=== PATIENT | female | born 1950 | race Caucasian/White ===

== ENCOUNTER 2018-07-23 16:54 | Emergency (ER) | payer OTHER ==
--- OUTSIDE RECORDS SUMMARY | 2018-07-23 16:56 | XMS REPORT | Clinical Summary ---
:1950 Author Organization [facility] Address [address] [place] [address] Care Team Providers Name Role Phone Olga Baker ZOYA Primary Care Provider Allergies Active Allergy Reactions Severity Noted Date Comments Codeine GI Intolerance High 02/13/2016 Penicillins GI Intolerance High 02/13/2016 Medications Medication Sig Dispensed Refills Start Date End Date Status FLUoxetine (PROzac) Take 20 mg by 0 Active 20 MG capsule mouth daily. atorvastatin Take 20 mg by 0 Active (LIPITOR) 20 MG mouth daily. tablet albuterol (VENTOLIN Inhale 2 18 g 3 03/17/2018 03/17/2019 Active HFA) 90 puffs every 6 mcg/actuation (six) hours inhaler as needed for wheezing. meloxicam (MOBIC) Take 1 tablet 30 tablet 4 10/01/2016 09/29/2017 Discontinued 7.5 mg (7.5 mg tabletIndications: total) by Neck pain, mouth daily. Spondylosis of cervical region without myelopathy or radiculopathy Active Problems Problem Noted Date Seasonal allergic rhinitis due to pollen 03/14/2016 Lung nodule < 6cm on CT 02/13/2016 Endobronchial mass 02/13/2016 Chronic obstructive pulmonary disease 02/13/2016 Tobacco abuse 02/13/2016 RODRIGUES (dyspnea on exertion) Encounters Date Type Specialty Care Team Description 07/05/2018 Telephone Pulmonology Syed Magdaleno MD 03/17/2018 Clinical Support Pulmonology Rochelle Martinez Chronic obstructive pulmonary disease, unspecified COPD type (HCC) 03/17/2018 Office Visit Pulmonology Syed Magdaleno Chronic obstructive pulmonary disease, unspecified COPD type (HCC) (Primary Dx); MD Anatoly Tobacco abuse; Lung nodule < 6cm on CT; Seasonal allergic rhinitis due to pollen 03/17/2018 Clinical Support Pulmonology Syed Magdaleno Chronic obstructive MD Anatoly pulmonary disease, JuanRochelle unspecified COPD type (HCC) 10/01/2017 Anesthesia Event Gastroenterology Linda Phillips FNP 10/01/2017 Surgery Gastroenterology Syed Magdaleno BRONCHOSCOPY MD Anatoly 10/01/2017 Hospital Encounter Gastroenterology Syed Magdaleno Lung nodule < 6cm on CT (Primary Dx); MD Anatoly Endobronchial mass 09/30/2017 Orders Only Pulmonology Mabel Gamboa, Chronic obstructive pulmonary disease, unspecified COPD type; MA Endobronchial mass; Tobacco abuse 09/29/2017 Office Visit Pulmonology Syed Magdaleno Chronic obstructive pulmonary disease, unspecified COPD type (Primary Dx); MD Anatoly Endobronchial mass; Tobacco abuse; Chronic seasonal allergic rhinitis due to pollen 09/24/2017 Documentation Pulmonology Syed Magdaleno MD 08/27/2017 Orders Only Pulmonology Olga Baker FNP after 07/22/2017 Immunizations Name Dates Previously Given Next Due FLUZONE HIGH-DOSE PF 03/17/2018 INFLUENZA QUAD PF 03/17/2016 Pneumococcal Conjugate 13-Valent 03/17/2016 Pneumococcal Polysaccharide 03/17/2018 Family History Medical History Relation Name Comments Cancer Brother Throat cancer Brother Heart failure Father Heart failure Mother Relation Name Status Comments Brother Father Mother Social History Tobacco Use Types Packs/Day Years Used Date Current Every Day Smoker Cigarettes 0.5 25 Smokeless Tobacco: Never Used Tobacco Cessation: Ready to Quit: Yes Alcohol Use Drinks/Week oz/Week Comments No Sex Assigned at Date Recorded Not on file Job Start Date Occupation Industry Not on file Not on file Not on file Travel History Travel Start Travel End No recent travel history available. Last Filed Vital Signs Vital Sign Reading Time Taken Blood Pressure 132/83 03/17/2018 10:01 AM CDT Pulse 71 03/17/2018 10:01 AM CDT Temperature 36.3 C (97.3 F) 03/17/2018 10:01 AM CDT Respiratory Rate 18 03/17/2018 9:35 AM CDT Oxygen Saturation 99% 03/17/2018 10:01 AM CDT Inhaled Oxygen Concentration - - Weight 61.7 kg (136 lb) 03/17/2018 10:01 AM CDT Height 158.8 cm (5' 2.5") 03/17/2018 10:01 AM CDT Body Mass Index 24.48 03/17/2018 10:01 AM CDT Plan of Treatment Health Maintenance Due Date Last Done Comments BREAST CANCER SCREENING 2000 COLON CANCER SCREENING 2000 SHINGLES VACCINES (#1) 2000 65+ PNEUMOCOCCAL VACCINE Completed 03/17/2018, 03/17/2016 INFLUENZA VACCINE Completed 03/17/2018, 03/17/2016 PNEUMOCOCCAL POLYSACCHARIDE VACCINE AGE 65 Completed 03/17/2018 AND OVER Procedures Procedure Name Priority Date/Time Associated Diagnosis Comments XR CHEST 1 VW STAT 10/01/2017 9:19 Results for this PORTABLE AM CDT procedure are in the results section. BRONCHOSCOPY 10/01/2017 8:00 Endobronchial mass AM CDT ECG 12-LEAD STAT 10/01/2017 6:52 Results for this AM CDT procedure are in the results section. CT CHEST W CONTRAST Routine 08/21/2017 after 07/22/2017 Results XR Chest 1 Vw Portable (10/01/2017 9:19 AM CDT) Narrative Performed At EXAMINATION:XR CHEST 1 VW PORTABLE [facility] CLINICAL HISTORY:SHORTNESS OF BREATH COMPARISON:February 21, 2016 IMPRESSION: No consolidation or pleural effusion. Mild cardiomegaly. No definite pulmonary edema. Bones are intact. [id number] Procedure Note Hm Interface, Radiology Results Incoming - 10/01/2017 9:24 AM CDT EXAMINATION: XR CHEST 1 VW PORTABLE CLINICAL HISTORY: SHORTNESS OF BREATH COMPARISON: February 21, 2016 IMPRESSION: No consolidation or pleural effusion. Mild cardiomegaly. No definite pulmonary edema. Bones are intact. [id number] Performing Organization Address City/State/Zipcode Phone Number [facility] [address] [place] [address] ECG 12 lead (10/01/2017 6:52 AM CDT) Ventricular rate 56 [facility] Atrial rate 56 [facility] NE interval 130 [facility] QRSD interval 78 [facility] QT interval 450 [facility] QTC interval 434 [facility] P axis 1 63 [facility] QRS axis 1 41 [facility] T wave axis -15 [facility] EKG impression Sinus bradycardia-T wave abnormality, consider inferior ischemia-Abnormal ECG-In automated comparison with ECG of 21-FEB-2016 06:31,- Nonspecific T wave abnormality now evident in Anterolateral leads-Charmaine [facility] ctronically Signed By Leeann Nobles ([id number]) on 10/01/2017 12:56:51 PM Performing Organization Address City/State/Zipcode Phone Number [facility] [address] [place] [address] CT Chest W Contrast (08/21/2017) Narrative Performed At after 07/22/2017 Insurance Payer Benefit Plan / Group Subscriber ID Type Phone Address MEDICARE MEDICARE PART A AND B xxxxxxxxxxx Medicare [place], [place] COMMERCIAL MISC MISC COMMERCIAL xxxxxxxxxx Commercial Advance Directives Patient has advance care planning documents on file. For more information, please contact:Albert Carnes[address] [place] [address]
[2018-07-23] MEDS ORDERED: ONDANSETRON 4 MG/2 ML VIAL ONE (18:44)
[2018-07-23 18:57] LABS: Absolute Lymphocytes (CBC) 2.8 K/uL (0.7-4.9); Absolute Monocytes 0.6 K/uL (0.1-1.3); Eosinophils % 3.8 % (0-4.4); Hematocrit 39.2 % (36.0-45.0); Lymphocytes % 36.3 % (15.3-44.8); MPV 9.2 fL (7.6-11.3); Monocytes % 7.6 % (3.3-12.3)
[2018-07-23 19:01] LABS: Protime INR 1.09
--- NOTE | 2018-07-23 19:22 | RAD REPORT ---
EXAM DESCRIPTION: RAD - Chest Single View - 07/23/2018 6:59 pm CLINICAL HISTORY: Shortness of breath, abdominal pain COMPARISON: January 2017 TECHNIQUE: AP portable chest image was obtained 2052 . FINDINGS: No focal lung parenchymal process seen. No failure or volume overload. Interstitial markin gs are prominent but not clearly different from comparison. Heart and vasculature are normal. No re urable pleural effusion and no pneumothorax. No acute bony abnormality seen. No acute aortic findings suspected. IMPRESSION: No acute cardiopulmonary process. Chest findings are not substantially different from comparison.
[2018-07-23 19:25] LABS: ALT/SGPT 17 U/L (12-78); AST/SGOT 11 U/L (15-37); Albumin 3.6 g/dL (3.4-5.0); Alkaline Phosphatase 85 U/L (45-117); BUN Blood Urea Nitrogen 14 mg/dL (7-18); Bicarbonate 29 mmol/L (21-32); Bilirubin Direct < 0.1 mg/dL (0-0.2); Bilirubin Total 0.2 mg/dL (0.2-1.0); Glucose Level 82 mg/dL (74-106); Magnesium 2.1 mg/dL (1.8-2.4); NT PRO-BNP 111 pg/mL (<125); Potassium 4.1 mmol/L (3.5-5.1); Sodium Level 144 mmol/L (136-145); Troponin (Emerg Dept Use Only) < 0.02 ng/mL (0.0-0.045)
--- NOTE | 2018-07-23 20:07 | ER ---
Nurse's Notes [facility] Name: Anamika Diaz Age: 67 yrs Sex: Female : 1950 Arrival Date: 07/23/2018 Time: 16:54 Bed 24 Private MD: out of town, doctor Diagnosis: Nausea;Hyperventilation Presentation: 07/23 16:57 Presenting complaint: Patient states: nausea x 3 days, SOB x 1 day, HTN for about a sv week. Transition of care: patient was not received from another setting of care. Onset of symptoms is unknown. Care prior to arrival: None. 16:57 Method Of Arrival: Ambulatory sv 16:57 Acuity: CARMEN 3 sv 17:33 Risk Assessment: Do you want to hurt yourself or someone else? Patient reports no tw2 desire to harm self or others. Initial Sepsis Screen: Does the patient meet any 2 criteria? No. Patient's initial sepsis screen is negative. Does the patient have a suspected source of infection? No. Patient's initial sepsis screen is negative. Triage Assessment: 17:32 General: Appears in no apparent distress. Behavior is calm, cooperative, appropriate tw2 for age. Pain: Denies pain. Respiratory: Reports shortness of breath Onset: The symptoms/episode began/occurred the patient has mild shortness of breath. Historical: - Allergies: 16:58 Codeine; sv 16:58 CYCLOBENZAPRINE (Vomiting); sv 16:58 Levaquin; sv 16:58 PENICILLINS (Hives); sv 17:33 Levofloxacin (Vomiting); tw2 - Home Meds: 17:33 fluoxetine 10 mg Oral cap once daily [Active]; tw2 17:41 lisinopril 10 mg Oral tab 1 tab once daily [Active]; tw2 - PMHx: 16:58 Vertigo; Hypertension; sv - PSHx: 16:58 hemmorrhoidectomy; sv - Immunization history:: Adult Immunizations. - Social history:: Smoking status: . - Ebola Screening: : Patient denies travel to an Ebola-affected area in the 21 days before illness onset. Screenin:32 Abuse screen: Denies threats or abuse. Nutritional screening: No deficits noted. tw2 Tuberculosis screening: No symptoms or risk factors identified. Fall Risk None identified. Assessment: 17:40 General: Appears in no apparent distress. slender, Behavior is calm, cooperative, tw2 appropriate for age. Pain: Denies pain. Neuro: Level of Consciousness is awake, alert, obeys commands, Oriented to person, place, situation. Cardiovascular: Heart tones S1 S2 Patient's skin is warm and dry. Rhythm is sinus rhythm. Respiratory: Airway is patent Respiratory effort is even, unlabored, Respiratory pattern is regular, symmetrical, Breath sounds are clear bilaterally. Respiratory: Reports shortness of breath at rest on exertion. GI: No signs and/or symptoms were reported involving the gastrointestinal system. : No signs and/or symptoms were reported regarding the genitourinary system. EENT: No signs and/or symptoms were reported regarding the EENT system. Derm: No signs and/or symptoms reported regarding the dermatologic system. Musculoskeletal: Range of motion: intact in all extremities. 18:45 Reassessment: Patient appears in no apparent distress at this time. No changes from tw2 previously documented assessment. Patient and/or family updated on plan of care and expected duration. Pain level reassessed. Patient is alert, oriented x 3, equal unlabored respirations, skin warm/dry/pink. 19:00 Reassessment: Patient appears in no apparent distress at this time. Patient and/or aa1 family updated on plan of care and expected duration. Pain level reassessed. Patient is alert, oriented x 3, equal unlabored respirations, skin warm/dry/pink. Pt awaiting lab results Patient denies pain at this time. 20:03 Reassessment: Patient appears in no apparent distress at this time. Patient and/or aa1 family updated on plan of care and expected duration. Pain level reassessed. Patient is alert, oriented x 3, equal unlabored respirations, skin warm/dry/pink. Awaiting provider reassessment. 20:15 Reassessment: Patient appears in no apparent distress at this time. Patient is alert, aa1 oriented x 3, equal unlabored respirations, skin warm/dry/pink. Discussed d/c \T\ f/u instructions with pt \T\ spouse; denies questions or concerns at this time. Amb to lobby with steady gait Patient denies pain at this time. Patient states feeling better. Vital Signs: 16:58 BP 136 / 84; Pulse 86; Resp 20; Temp 98; Pulse Ox 100% ; Weight 61.23 kg; Height 5 ft. sv 2 in. (157.48 cm); Pain 0/10; 17:39 BP 134 / 78; Pulse 74; Resp 17; Pulse Ox 100% on R/A; tw2 18:05 BP 121 / 81; Pulse 69; Resp 17; Pulse Ox 99% on R/A; tw2 19:00 BP 128 / 76; Pulse 63; Resp 16; Pulse Ox 96% on R/A; Pain 0/10; aa1 20:03 BP 125 / 79; Pulse 63; Resp 16; Pulse Ox 98% on R/A; Pain 0/10; aa1 16:58 Body Mass Index 24.69 (61.23 kg, 157.48 cm) sv ED Course: 16:54 Patient arrived in ED. dl4 16:54 out of town, doctor is Private Physician. dl4 16:57 Triage completed. sv 16:58 Arm band placed on. sv 17:31 Deepa Booker RN is Primary Nurse. tw2 17:32 Placed in gown. Bed in low position. Call light in reach. Adult w/ patient. Cardiac tw2 monitor on. Pulse ox on. NIBP on. 17:54 Lev Flower NP is PHCP. pm1 17:54 Satya Dumont MD is Attending Physician. pm1 18:35 Inserted saline lock: 22 gauge in right antecubital area, using aseptic technique. tw2 Blood collected. 18:59 XRAY Chest (1 view) In Process Unspecified. EDMS 19:02 Report given to SHERRI Schumacher. tw2 20:15 No provider procedures requiring assistance completed. IV discontinued, intact, aa1 bleeding controlled, No redness/swelling at site. Pressure dressing applied. Administered Medications: 18:37 Drug: Zofran 4 mg Route: IVP; Site: right antecubital; tw2 18:46 Follow up: Response: No adverse reaction tw2 20:14 Follow up: Response: Nausea is decreased aa1 Outcome: 20:06 Discharge ordered by . pm1 20:15 Discharged to home ambulatory, with significant other. aa1 20:15 Condition: good 20:15 Discharge instructions given to patient, significant other, Instructed on discharge instructions, follow up and referral plans. medication usage, Demonstrated understanding of instructions, follow-up care, medications, Prescriptions given X 1. 20:16 Patient left the ED. aa1 Signatures: Dispatcher [employer] Tracy Aponte RN RN sv Winsome Mendoza RN RN aa1 Lev Flower, SOLAR ENERGY ENGINEER SOLAR ENERGY ENGINEER pm1 Deepa Booker RN RN tw2 Ez Garcia dl4
--- NOTE | 2018-07-23 20:07 | EDPHYS ---
Physician Documentation [facility] Name: Anamika Diaz Age: 67 yrs Sex: Female : 1950 Arrival Date: 07/23/2018 Time: 16:54 Bed 24 Private MD: out of town, doctor ED Physician Satya Dumont HPI: 07/23 19:00 This 67 yrs old Female presents to ER via Ambulatory with complaints of pm1 Breathing Difficulty, High Blood Pressure. 19:00 Onset: The symptoms/episode began/occurred 3 day(s) ago. The patient's shortness of pm1 breath is aggravated by nothing, is alleviated by nothing. Associated signs and symptoms: Pertinent positives: nausea, Pertinent negatives: chest pain, diaphoresis, dizziness, fever, numbness in extremities, vomiting. Severity of symptoms: in the emergency department the symptoms are unchanged Pain is currently a 0 / 10. The patient has not experienced similar symptoms in the past. Patient with three days of episodes of nausea that would cause to start hyperventilating. Patient would feel short of breath when she hyperventilated. No vomiting, diarrhea or abdominal pain. No chest pain. no fever. No cough. Historical: - Allergies: 16:58 Codeine; sv 16:58 CYCLOBENZAPRINE (Vomiting); sv 16:58 Levaquin; sv 16:58 PENICILLINS (Hives); sv 17:33 Levofloxacin (Vomiting); tw2 - Home Meds: 17:33 fluoxetine 10 mg Oral cap once daily [Active]; tw2 17:41 lisinopril 10 mg Oral tab 1 tab once daily [Active]; tw2 - PMHx: 16:58 Vertigo; Hypertension; sv - PSHx: 16:58 hemmorrhoidectomy; sv - Immunization history:: Adult Immunizations. - Social history:: Smoking status: . - Ebola Screening: : Patient denies travel to an Ebola-affected area in the 21 days before illness onset. ROS: 19:00 Constitutional: Negative for fever, chills, and weight loss, Eyes: Negative for injury, pm1 pain, redness, and discharge, ENT: Negative for injury, pain, and discharge, Neck: Negative for injury, pain, and swelling, Cardiovascular: Negative for chest pain, palpitations, and edema, Respiratory: Negative for shortness of breath, cough, wheezing, and pleuritic chest pain. 19:00 Back: Negative for injury and pain, : Negative for injury, bleeding, discharge, and swelling, MS/Extremity: Negative for injury and deformity, Skin: Negative for injury, rash, and discoloration, Neuro: Negative for headache, weakness, numbness, tingling, and seizure. 19:00 Abdomen/GI: Positive for nausea, Negative for abdominal pain, vomiting, diarrhea, constipation. Exam: 19:00 Constitutional: This is a well developed, well nourished patient who is awake, alert, pm1 and in no acute distress. Head/Face: Normocephalic, atraumatic. Eyes: Pupils equal round and reactive to light, extra-ocular motions intact. Lids and lashes normal. Conjunctiva and sclera are non-icteric and not injected. Cornea within normal limits. Periorbital areas with no swelling, redness, or edema. ENT: Nares patent. No nasal discharge, no septal abnormalities noted. Tympanic membranes are normal and external auditory canals are clear. Oropharynx with no redness, swelling, or masses, exudates, or evidence of obstruction, uvula midline. Mucous membranes moist. Neck: Trachea midline, no thyromegaly or masses palpated, and no cervical lymphadenopathy. Supple, full range of motion without nuchal rigidity, or vertebral point tenderness. No Meningismus. Chest/axilla: Normal chest wall appearance and motion. Nontender with no deformity. No lesions are appreciated. Cardiovascular: Regular rate and rhythm with a normal S1 and S2. No gallops, murmurs, or rubs. Normal PMI, no JVD. No pulse deficits. Respiratory: Lungs have equal breath sounds bilaterally, clear to auscultation and percussion. No rales, rhonchi or wheezes noted. No increased work of breathing, no retractions or nasal flaring. Abdomen/GI: Soft, non-tender, with normal bowel sounds. No distension or tympany. No guarding or rebound. No evidence of tenderness throughout. Back: No spinal tenderness. No costovertebral tenderness. Full range of motion. Skin: Warm, dry with normal turgor. Normal color with no rashes, no lesions, and no evidence of cellulitis. MS/ Extremity: Pulses equal, no cyanosis. Neurovascular intact. Full, normal range of motion. 19:00 Neuro: Orientation: is normal, Motor: moves all fours. Vital Signs: 16:58 BP 136 / 84; Pulse 86; Resp 20; Temp 98; Pulse Ox 100% ; Weight 61.23 kg; Height 5 ft. sv 2 in. (157.48 cm); Pain 0/10; 17:39 BP 134 / 78; Pulse 74; Resp 17; Pulse Ox 100% on R/A; tw2 18:05 BP 121 / 81; Pulse 69; Resp 17; Pulse Ox 99% on R/A; tw2 19:00 BP 128 / 76; Pulse 63; Resp 16; Pulse Ox 96% on R/A; Pain 0/10; aa1 20:03 BP 125 / 79; Pulse 63; Resp 16; Pulse Ox 98% on R/A; Pain 0/10; aa1 16:58 Body Mass Index 24.69 (61.23 kg, 157.48 cm) sv MDM: 18:15 Patient medically screened. pm1 20:04 Data reviewed: vital signs. Data interpreted: Pulse oximetry: on room air is 99 %. pm1 Interpretation: normal. 20:05 Counseling: I had a detailed discussion with the patient and/or guardian regarding: the pm1 historical points, exam findings, and any diagnostic results supporting the discharge/admit diagnosis, lab results, radiology results, the need for outpatient follow up, to return to the emergency department if symptoms worsen or persist or if there are any questions or concerns that arise at home. 03 18:24 Order name: Basic Metabolic Panel; Complete Time: 20:05 pm1 07/23 18:24 Order name: CBC with Diff; Complete Time: 20:05 pm1 07/23 18:24 Order name: LFT's; Complete Time: 20:05 pm1 07/23 18:24 Order name: Magnesium; Complete Time: 20:05 pm1 07/23 18:24 Order name: NT PRO-BNP; Complete Time: 20:05 pm1 07/23 18:24 Order name: PT-INR; Complete Time: 20:05 pm1 07/23 18:24 Order name: Troponin (emerg Dept Use Only); Complete Time: 20:05 pm1 07/23 18:24 Order name: XRAY Chest (1 view); Complete Time: 20:05 pm1 07/23 18:24 Order name: EKG; Complete Time: 18:25 pm1 07/23 18:24 Order name: Cardiac monitoring; Complete Time: 18:24 pm1 07/23 18:24 Order name: EKG - Nurse/Tech; Complete Time: 18:45 pm1 07/23 18:24 Order name: IV Saline Lock; Complete Time: 18:45 pm1 07/23 18:24 Order name: Labs collected and sent; Complete Time: 18:45 pm1 07/23 18:24 Order name: O2 Per Protocol; Complete Time: 18:24 pm1 07/23 18:24 Order name: O2 Sat Monitoring; Complete Time: 18:24 pm1 Administered Medications: 18:37 Drug: Zofran 4 mg Route: IVP; Site: right antecubital; tw2 18:46 Follow up: Response: No adverse reaction tw2 20:14 Follow up: Response: Nausea is decreased aa1 Disposition: 07/23/18 20:06 Discharged to Home. Impression: Nausea, Hyperventilation. - Condition is Stable. - Discharge Instructions: Hyperventilation, Nausea, Adult. - Prescriptions for Zofran 4 mg Oral Tablet - take 1 tablet by ORAL route every 12 hours As needed; 20 tablet. - Medication Reconciliation Form, Thank You Letter, Antibiotic Education, Prescription Opioid Use form. - Follow up: Emergency Department; When: As needed; Reason: Worsening of condition. Follow up: Private Physician; When: 2 - 3 days; Reason: Recheck today's complaints, Continuance of care, Re-evaluation by your physician. - Problem is new. - Symptoms have improved. Addendum: 07/26/2018 06:47 Co-signature as Attending Physician, Satya Dumont MD I agree with the assessment and k dr plan of care. Signatures: Dispatcher [employer] Tracy Aponte RN RN Winsome Garza RN RN aa1 Satya Dumont MD MD [facility] Lev Flower NP JOINT CUTTER MACHINE pm1 Deepa Booker RN RN tw2 Corrections: (The following items were deleted from the chart) 07/23 20:16 20:06 07/23/2018 20:06 Discharged to Home. Impression: Nausea; Hyperventilation. aa1 Condition is Stable. Forms are Medication Reconciliation Form, Thank You Letter, Antibiotic Education, Prescription Opioid Use. Follow up: Emergency Department; When: As needed; Reason: Worsening of condition. Follow up: Private Physician; When: 2 - 3 days; Reason: Recheck today's complaints, Continuance of care, Re-evaluation by your physician. Problem is new. Symptoms have improved. pm1
--- NOTE | 2018-07-25 21:48 | EKG ---
Test Date: 2018-07-23 Test Time: 18:30:11 Patient Accounts Coordinator: TM MEASUREMENT RESULTS: Intervals: Rate: 60 AL: 142 QRSD: 78 QT: 444 QTc: 444 [place]: P: 60 AL: 142 QRS: 39 T: -25 INTERPRETIVE STATEMENTS: Normal sinus rhythm Possible Left atrial enlargement T wave abnormality, consider inferior ischemia Abnormal ECG Compared to ECG 02/07/2017 11:53:53 Sinus bradycardia no longer present T-wave abnormality still present Possible ischemia still present Electronically Signed On 07-25-18 21:48:05 CDT by Ermias Dominguez
== END 2018-07-23 20:16 | disposition home or self-care (01) ==
LOC: ER 16:54
DX: R06.4 Hyperventilation (principal); R11.0 Nausea; I10 Essential (primary) hypertension; Z88.0 Allergy status to penicillin; Z88.1 Allergy status to other antibiotic agents; Z88.6 Allergy status to analgesic agent; Z88.8 Allergy status to other drugs, medicaments and biological substances
CPT/HCPCS: 36415; 71045; 80048; 80076; 83735; 83880; 84484; 85025; 85610; 93005; 96374; 99284; J2405

== ENCOUNTER 2018-07-24 20:31 | Inpatient (IN) | payer OTHER ==
--- OUTSIDE RECORDS SUMMARY | 2018-07-24 20:34 | XMS REPORT | Clinical Summary ---
:1950 Author Organization [facility] Address [address] [place] [address] Care Team Providers Name Role Phone Olga [...] Orders Only Pulmonology Olga Baker FNP after 07/23/2017 Immunizations Name Dates Previously Given Next Due [...] CT CHEST W CONTRAST Routine 08/21/2017 after 07/23/2017 Results XR Chest 1 Vw Portable (10/01/2017 9:19 AM CDT) Narrative Performed At EXAMINATION:XR CHEST 1 VW PORTABLE [facility] CLINICAL HISTORY:SHORTNESS OF BREATH COMPARISON:February 21, 2016 IMPRESSION: No consolidation or pleural effusion. Mild cardiomegaly. No definite pulmonary edema. Bones are intact. [id number] Procedure Note Hm Interface, Radiology Results Incoming - 10/01/2017 9:24 AM CDT EXAMINATION: XR CHEST 1 VW PORTABLE CLINICAL HISTORY: SHORTNESS OF BREATH COMPARISON: February 21, 2016 IMPRESSION: No consolidation or pleural effusion. Mild cardiomegaly. No definite pulmonary edema. Bones are intact. [id number] Performing Organization Address City/State/Zipcode Phone Number [facility] [address] [place] [address] ECG 12 lead (10/01/2017 6:52 AM CDT) Ventricular rate 56 [facility] Atrial rate 56 [facility] [place] interval 130 [facility] QRSD interval 78 [facility] QT interval 450 [facility] QTC interval 434 [facility] P axis 1 63 [facility] QRS axis 1 41 [facility] T wave axis -15 [facility] EKG impression Sinus bradycardia-T wave abnormality, consider inferior ischemia-Abnormal ECG-In automated comparison with ECG of 21-FEB-2016 06:31,- Nonspecific T wave abnormality now evident in Anterolateral leads-Charmaine [facility] ctronically Signed By Leeann Nobles ([id number]) on 10/01/2017 12:56:51 PM Performing Organization Address City/State/Zipcode Phone Number [facility] [address] [place] [address] CT Chest W Contrast (08/21/2017) Narrative Performed At after 07/23/2017 Insurance Payer Benefit Plan / Group Subscriber ID Type Phone Address MEDICARE MEDICARE PART A AND B xxxxxxxxxxx Medicare [place], [place] COMMERCIAL MISC MISC COMMERCIAL xxxxxxxxxx Commercial Advance Directives Patient has advance care planning documents on file. For more information, please contact:Albert Carnes[address] [place] [address]
[2018-07-24 20:58] LABS: Absolute Lymphocytes (CBC) 2.9 K/uL (0.7-4.9); Absolute Monocytes 0.5 K/uL (0.1-1.3); Absolute Neutrophil 3.6 K/uL (1.8-8.0); Eosinophils % 4.8 % (0-4.4); Hematocrit 38.4 % (36.0-45.0); Lymphocytes % 38.4 % (15.3-44.8); MPV 8.9 fL (7.6-11.3); Monocytes % 7.4 % (3.3-12.3); RBC Red Blood Cell Count 4.08 M/uL (3.86-4.86)
[2018-07-24 21:06] LABS: Protime INR 1.09
[2018-07-24 21:19] LABS: ALT/SGPT 16 U/L (12-78); AST/SGOT 13 U/L (15-37); Albumin 3.4 g/dL (3.4-5.0); Alkaline Phosphatase 81 U/L (45-117); BUN Blood Urea Nitrogen 16 mg/dL (7-18); Bicarbonate 28 mmol/L (21-32); Bilirubin Direct < 0.1 mg/dL (0-0.2); Bilirubin Total 0.2 mg/dL (0.2-1.0); Glucose Level 114 mg/dL (74-106); Magnesium 2.1 mg/dL (1.8-2.4); NT PRO-BNP 119 pg/mL (<125); Potassium 4.1 mmol/L (3.5-5.1); Protein, Total 6.5 g/dL (6.4-8.2); Sodium Level 144 mmol/L (136-145); Troponin (Emerg Dept Use Only) < 0.02 ng/mL (0.0-0.045)
[2018-07-24] MEDS ORDERED: ASPIRIN 81 MG CHEWABLE TABLET ONE (21:41)
--- NOTE | 2018-07-24 22:25 | ER ---
Nurse's Notes [facility] Name: Anamika Diaz Age: 67 yrs Sex: Female : 1950 Arrival Date: 07/24/2018 Time: 20:33 Bed 3 Private MD: Diagnosis: Chest pain, unspecified;Abnormal electrocardiogram [ECG] [EKG] Presentation: 07/24 20:44 Presenting complaint: Patient states: Was seen here yesterday for nausea, had workup tl2 and EKG. Pt complains of increased shortness of breath, dizziness, chest pressure and nausea since this morning. Transition of care: patient was not received from another setting of care. Onset of symptoms was July 24, 2018. Risk Assessment: Do you want to hurt yourself or someone else? Patient reports no desire to harm self or others. Initial Sepsis Screen: Does the patient meet any 2 criteria? No. Patient's initial sepsis screen is negative. Does the patient have a suspected source of infection? No. Patient's initial sepsis screen is negative. Care prior to arrival: None. 20:44 Method Of Arrival: Wheelchair tl2 20:44 Acuity: CARMEN 3 tl2 Triage Assessment: 20:48 General: Appears in no apparent distress. uncomfortable, Behavior is cooperative, tl2 appropriate for age, anxious. Pain: Complains of pain in chest Quality of pain is described as pressure. GI: Reports nausea. Historical: - Allergies: 20:48 Codeine; tl2 20:48 CYCLOBENZAPRINE (Vomiting); tl2 20:48 Levaquin; tl2 20:48 Levofloxacin (Vomiting); tl2 20:48 PENICILLINS (Hives); tl2 - Home Meds: 20:48 fluoxetine 20 mg oral cap [Active]; lisinopril 10 mg Oral tab 1 tab once daily tl2 [Active]; atorvastatin 20 mg oral tab 1 tab once daily [Active]; turmeric root extract 500 mg oral cap [Active]; - PMHx: 20:48 Hypertension; Vertigo; Hyperlipidemia; tl2 - Immunization history:: Adult Immunizations up to date. - Social history:: Smoking status: Patient uses tobacco products, smokes one-half pack cigarettes per day. - Ebola Screening: : No symptoms or risks identified at this time. Screenin:24 Abuse screen: Denies threats or abuse. Denies injuries from another. Nutritional ak1 screening: No deficits noted. Tuberculosis screening: No symptoms or risk factors identified. Fall Risk None identified. Assessment: 21:08 General: Appears in no apparent distress. Behavior is calm, cooperative. Pain: ak1 Complains of pain in chest. Neuro: No deficits noted. Cardiovascular: Reports chest pain, shortness of breath. Respiratory: Reports shortness of breath on exertion while walking. pt stated sitting and lying in bed she "feels fine" pt stated she did yard work today, "pulled weeds" no resp distress noted at this time. family at bedside will continue to monitor. GI: Abdomen is flat, non-distended. : No signs and/or symptoms were reported regarding the genitourinary system. EENT: No signs and/or symptoms were reported regarding the EENT system. Derm: No signs and/or symptoms reported regarding the dermatologic system. Musculoskeletal: No signs and/or symptoms reported regarding the musculoskeletal system. Vital Signs: 20:48 BP 136 / 79; Pulse 72; Resp 18; Temp 98.2(O); Pulse Ox 99% on R/A; Weight 61.23 kg; tl2 Height 5 ft. 2 in. (157.48 cm); Pain 4/10; 21:08 BP 122 / 66; Pulse 64; Resp 14; Temp 98.2; Pulse Ox 98% on R/A; ak1 22:56 BP 100 / 55; Pulse 58; Resp 16; Temp 98.3; Pulse Ox 99% on R/A; ak1 07/25 00:01 BP 139 / 79; Pulse 55; Resp 15; Pulse Ox 97% on R/A; mt 00:18 BP 117 / 66; Pulse 55; Resp 16; Pulse Ox 96% on R/A; ak1 07/24 20:48 Body Mass Index 24.69 (61.23 kg, 157.48 cm) tl2 ED Course: 07/24 20:33 Patient arrived in ED. es 20:41 Adelso Zambrano PA is PHCP. jr8 20:41 Rishabh Dickson MD is Attending Physician. jr8 20:42 Adelaida Farmer, RN is Primary Nurse. ak1 20:46 Triage completed. tl2 20:48 Arm band placed on right wrist. tl2 20:50 Patient has correct armband on for positive identification. Placed in gown. Bed in low ak1 position. Call light in reach. Side rails up X 1. Adult w/ patient. package sorter on. Pulse ox on. NIBP on. 20:53 Inserted saline lock: 20 gauge in left antecubital area, using aseptic technique. Blood mt collected. 20:56 Basic Metabolic Panel Sent. mt 20:56 CBC with Diff Sent. mt 20:56 LFT's Sent. mt 20:56 Magnesium Sent. mt 20:56 NT PRO-BNP Sent. mt 20:57 PT-INR Sent. mt 20:57 Troponin (emerg Dept Use Only) Sent. mt 22:23 Cesar Cheek MD is Hospitalizing Provider. jr8 07/25 00:03 No provider procedures requiring assistance completed. Patient admitted, IV remains in ak1 place. Administered Medications: 07/24 21:35 Drug: Aspirin Chewable Tablet 324 mg Route: PO; ak1 21:36 Follow up: Response: No adverse reaction ak1 22:45 Drug: Lovenox 1 mg/kg Route: Sub-Q; Site: abdomen; ak1 22:57 Follow up: Response: No adverse reaction ak1 Outcome: 22:23 Decision to Hospitalize by Provider. jr8 07/25 00:03 Admitted to Tele accompanied by tech, family with patient, via wheelchair, room 429, ak1 with chart. Condition: good Instructed on the need for admit. 00:30 Patient left the ED. ak1 Signatures: Ivania Toth Josh, PA PA jr8 Adelaida Farmer RN RN ak1 Scarlett Davey RN RN 2 [facility]
--- NOTE | 2018-07-24 22:25 | EDPHYS ---
Physician Documentation [facility] Name: Anamika Diaz Age: 67 yrs Sex: Female : 1950 Arrival Date: 07/24/2018 Time: 20:33 Bed 3 Private MD: ED Physician Rishabh Dickson HPI: 07/24 22:20 This 67 yrs old Female presents to ER via Wheelchair with complaints of jr8 Nausea, Dizziness, Chest Pressure. 22:20 Patient stated that since this past Thursday started to have RODRIGUES. Was seen yesterday jr8 in ED for RODRIGUES and nausea. D/C'd home with zofran after finding no acute abnormality. Patient came back to ED today for similar symptoms but now having CP with exertion as well . Historical: - Allergies: 20:48 Codeine; tl2 20:48 CYCLOBENZAPRINE (Vomiting); tl2 20:48 Levaquin; tl2 20:48 Levofloxacin (Vomiting); tl2 20:48 PENICILLINS (Hives); tl2 - Home Meds: 20:48 fluoxetine 20 mg oral cap [Active]; lisinopril 10 mg Oral tab 1 tab once daily tl2 [Active]; atorvastatin 20 mg oral tab 1 tab once daily [Active]; turmeric root extract 500 mg oral cap [Active]; - PMHx: 20:48 Hypertension; Vertigo; Hyperlipidemia; tl2 - Immunization history:: Adult Immunizations up to date. - Social history:: Smoking status: Patient uses tobacco products, smokes one-half pack cigarettes per day. - Ebola Screening: : No symptoms or risks identified at this time. ROS: 22:20 Eyes: Negative for injury, pain, redness, and discharge, ENT: Negative for injury, jr8 pain, and discharge, Neck: Negative for injury, pain, and swelling, Respiratory: Negative for shortness of breath, cough, wheezing, and pleuritic chest pain, Abdomen/GI: Negative for abdominal pain, nausea, vomiting, diarrhea, and constipation, Back: Negative for injury and pain, MS/Extremity: Negative for injury and deformity, Skin: Negative for injury, rash, and discoloration. 22:20 Cardiovascular: Positive for chest pain, Negative for edema, orthopnea, palpitations, paroxysmal nocturnal dyspnea. 22:20 Neuro: Positive for dizziness, near syncope. Exam: 22:20 Eyes: Pupils equal round and reactive to light, extra-ocular motions intact. Lids and jr8 lashes normal. Conjunctiva and sclera are non-icteric and not injected. Cornea within normal limits. Periorbital areas with no swelling, redness, or edema. ENT: Nares patent. No nasal discharge, no septal abnormalities noted. Tympanic membranes are normal and external auditory canals are clear. Oropharynx with no redness, swelling, or masses, exudates, or evidence of obstruction, uvula midline. Mucous membranes moist. Neck: Trachea midline, no thyromegaly or masses palpated, and no cervical lymphadenopathy. Supple, full range of motion without nuchal rigidity, or vertebral point tenderness. No Meningismus. Cardiovascular: Regular rate and rhythm with a normal S1 and S2. No gallops, murmurs, or rubs. Normal PMI, no JVD. No pulse deficits. Respiratory: Lungs have equal breath sounds bilaterally, clear to auscultation and percussion. No rales, rhonchi or wheezes noted. No increased work of breathing, no retractions or nasal flaring. Abdomen/GI: Soft, non-tender, with normal bowel sounds. No distension or tympany. No guarding or rebound. No evidence of tenderness throughout. Back: No spinal tenderness. No costovertebral tenderness. Full range of motion. Skin: Warm, dry with normal turgor. Normal color with no rashes, no lesions, and no evidence of cellulitis. MS/ Extremity: Pulses equal, no cyanosis. Neurovascular intact. Full, normal range of motion. Neuro: Awake and alert, GCS 15, oriented to person, place, time, and situation. Cranial nerves II-XII grossly intact. Motor strength 5/5 in all extremities. Sensory grossly intact. Cerebellar exam normal. Normal gait. 22:25 ECG was reviewed by the Attending Physician. jr8 Vital Signs: 20:48 BP 136 / 79; Pulse 72; Resp 18; Temp 98.2(O); Pulse Ox 99% on R/A; Weight 61.23 kg; tl2 Height 5 ft. 2 in. (157.48 cm); Pain 4/10; 21:08 BP 122 / 66; Pulse 64; Resp 14; Temp 98.2; Pulse Ox 98% on R/A; ak1 22:56 BP 100 / 55; Pulse 58; Resp 16; Temp 98.3; Pulse Ox 99% on R/A; ak1 07/25 00:01 BP 139 / 79; Pulse 55; Resp 15; Pulse Ox 97% on R/A; mt 00:18 BP 117 / 66; Pulse 55; Resp 16; Pulse Ox 96% on R/A; ak1 07/24 20:48 Body Mass Index 24.69 (61.23 kg, 157.48 cm) tl2 MDM: 07/24 20:41 Patient medically screened. [facility] 22:20 Data reviewed: vital signs, nurses notes, lab test result(s), EKG, radiologic studies, [facility] plain films. Data interpreted: Pulse oximetry: on room air is 98 %. Interpretation: normal. Counseling: I had a detailed discussion with the patient and/or guardian regarding: the historical points, exam findings, and any diagnostic results supporting the discharge/admit diagnosis, lab results, radiology results, the need for further work-up and treatment in the hospital. ED course: Compared ECG form yesterday to today. Patient has inferior changes with deepening of Q wave noted in AvL. Discussed this along with presentation to Dr. Hopkins. Agrees patient needs to be seen and will be hospitalized . 07/24 20:42 Order name: Basic Metabolic Panel [facility] 07/24 20:42 Order name: CBC with Diff [facility] 07/24 20:42 Order name: LFT's [facility] 07/24 20:42 Order name: Magnesium [facility] 07/24 20:42 Order name: NT PRO-BNP [facility] 07/24 20:42 Order name: PT-INR [facility] 07/24 20:42 Order name: Troponin (emerg Dept Use Only) [facility] 07/24 21:09 Order name: Protime (+INR); Complete Time: 21:21 [facility] 07/24 21:10 Order name: CBC with Automated Diff; Complete Time: 21:21 [facility] 07/24 21:20 Order name: Basic Metabolic Panel; Complete Time: 21:21 [facility] 07/24 21:20 Order name: Liver (Hepatic) Function; Complete Time: 21:21 [facility] 07/24 21:20 Order name: Troponin (Emerg Dept Use Only); Complete Time: 21:21 [facility] 07/24 21:20 Order name: NT PRO-BNP; Complete Time: 21:21 [facility] 07/24 21:20 Order name: Magnesium; Complete Time: 21: [facility] 07/24 20:42 Order name: EKG; Complete Time: 20:42 [facility] 07/24 20:42 Order name: Cardiac monitoring; Complete Time: 20:53 [facility] 07/24 20:42 Order name: EKG - Nurse/Tech; Complete Time: 20:53 [facility] 07/24 20:42 Order name: IV Saline Lock; Complete Time: 20:53 [facility] 07/24 20:42 Order name: Labs collected and sent; Complete Time: 20:54 [facility] 07/24 20:42 Order name: O2 Per Protocol; Complete Time: 20: [facility] 07/24 20:42 Order name: O2 Sat Monitoring; Complete Time: 20:42 jr8 EC:25 Rate is 64 beats/min. Rhythm is regular, Normal Sinus Rhythm. QRS [place] is Normal. MT jr8 interval is normal at 138 msec. QRS interval is normal at 78 msec. QT interval is normal at 441 msec. Q waves are Present in lead aVL. T waves are Inverted in leads III, aVF, V3. No ST changes noted. Clinical impression: Abnormal EKG without significant change and Cardiac ischemia. Interpreted by me. Reviewed by me. Administered Medications: 21:35 Drug: Aspirin Chewable Tablet 324 mg Route: PO; ak1 21:36 Follow up: Response: No adverse reaction ak1 22:45 Drug: Lovenox 1 mg/kg Route: Sub-Q; Site: abdomen; ak1 22:57 Follow up: Response: No adverse reaction ak1 Disposition: 07/25 07:05 Co-signature as Attending Physician, Rishabh Dickson MD I agree with the assessment and 4 plan of care. Disposition: 07/24/18 22:23 Hospitalization ordered by Cesar Cheek for Observation. Preliminary diagnosis are Chest pain, unspecified, Abnormal electrocardiogram [ECG] [EKG]. - Bed requested for Telemetry/MedSurg (observation). - Status is Observation. ak1 - Condition is Stable. - Problem is new. - Symptoms have improved. UTI on Admission? No Signatures: Dispatcher [employer] [facility] Adelso Zambrano PA PA jr8 Adelaida Farmer RN RN ak1 Scarlett Davey RN RN tl2 Rishabh Dickson MD MD tw4 Corrections: (The following items were deleted from the chart) 00:30 0309 22:23 Hospitalization Ordered by Cesar Cheek MD for Observation. Preliminary ak1 diagnosis is Chest pain, unspecified; Abnormal electrocardiogram [ECG] [EKG]. Bed requested for Telemetry/MedSurg (observation). Status is Observation. Condition is Stable. Problem is new. Symptoms have improved. UTI on Admission? No. jr8
[2018-07-24] MEDS ORDERED: ENOXAPARIN 60 MG/0.6 ML SQ ONE (22:46)
--- NOTE | 2018-07-24 23:39 | P.HP ---
Certification for Inpatient Patient admitted to: Observation With expected LOS: <2 Midnights Practitioner: I am a practitioner with admitting privileges, knowledge of patient current condition, hospital course, and medical plan of care. Services: Services provided to patient in accordance with Admission requirements found in Title 42 Section 412.3 of the Code of Federal Regulations Patient History Date of Service: 07/24/18 Reason for admission: chest pain History of Present Illness: Ms Diaz is a 67 years old woman with history of HTN, Vertigo, tobacco abuse, who start about 3 days ago, with episodes of SOB on exertion, associated with nausea and diaphoresis. She came to ED yesterday, had negative work up and was sent home. Today, her symptoms got worse, and she start feeling heaviness sensation on her chest. The location of the pain was retrosternal, associated with nausea, SOB and diaphoresis episode, lasting for 20 minutes. Initial trop I is negative, EKG shows SR at 75 bpm, with ST depresion on inferior leads and Q waves on lateral leads (not acute changes), similar to previous EKG. Allergies codeine Allergy (Unverified 02/07/17 15:13) Unknown cyclobenzaprine Allergy (Unverified 02/07/17 15:13) Unknown levofloxacin [From Levaquin] Allergy (Unverified 02/07/17 15:13) Unknown Penicillins Allergy (Unverified 02/07/17 15:13) Unknown le Allergy (Uncoded 02/07/17 15:13) Unknown Home medications list reviewed: Yes - Past Medical/Surgical History -: tobacco abuse -: HTN Past Surgical History: Reviewed- Non-Contributory - Family History Mother -: Heart disease Father -: Heart disease - Social History Smoking Status: Current every day smoker Counseled patient to stop smoking for: less than 10 minutes CD- Drugs: No Place of Residence: Home Review of Systems 10-point ROS is otherwise unremarkable Physical Examination - Physical Exam General: Alert, In no apparent distress HEENT: Atraumatic, PERRLA, Mucous membr. moist/pink, EOMI, Sclerae nonicteric Neck: Supple, 2+ carotid pulse no bruit, No LAD, Without JVD or thyroid abnormality Respiratory: Clear to auscultation bilaterally, Normal air movement Cardiovascular: Regular rate/rhythm, Normal S1 S2 Gastrointestinal: Normal bowel sounds, No tenderness Musculoskeletal: No tenderness Integumentary: No rashes Neurological: Normal gait, Normal speech, Normal strength at 5/5 x4 extr, Normal tone, Normal affect Lymphatics: No axilla or inguinal lymphadenopathy - Studies Laboratory Data (last 24 hrs) 07/24/18 20:50: PT 12.8 H, INR 1.09 07/24/18 20:50: WBC 7.4, Hgb 13.1, Hct 38.4, Plt Count 220 07/24/18 20:50: Sodium 144, Potassium 4.1, BUN 16, Creatinine 1.08, Glucose 114 H, Magnesium 2.1, Total Bilirubin 0.2, AST 13 L, ALT 16, Alkaline Phosphatase 81 Assessment and Plan - Problems (Diagnosis) (1) Chest pain Current Visit: Yes Status: Acute Qualifiers: Chest pain type: precordial pain Qualified Code(s): R07.2 - Precordial pain (2) Tobacco abuse Current Visit: Yes Status: Acute (3) HTN (hypertension) Current Visit: Yes Status: Acute Qualifiers: Hypertension type: essential hypertension Qualified Code(s): I10 - Essential (primary) hypertension - Plan Will admit the patient due to typical chest pain. Will start lovenox full dose, ASA, statins, beta marisol. Consult cardiology for evaluation and recommendations. - Advance Directives Does patient have a Living Will: No Does patient have a Durable POA for Healthcare: No - Code Status/Comfort Care Code Status Assessed: Yes Code Status: Full Code
[2018-07-25] MEDS ORDERED: NITROGLYCERIN 0.4 MG/TAB SL PRN (00:44)
[2018-07-25] MEDS: NICOTINE 14 MG/PAT TD SCH (03:36)
[2018-07-25] MEDS: ASPIRIN EC 81 MG TAB PO SCH (08:12)
--- NOTE | 2018-07-25 08:19 | P.PN ---
Subjective Date of Service: 07/25/18 Primary Care Provider: [facility]([place], [place]); Cardiology-Dr. Green Chief Complaint: chest pain Subjective: Improving (No more chest pain noted. Had normal stress test years ago with Dr. Green. She has HTN/Hyperlipidemia/Tobacco abuse and Depression) Physical Examination - Vital Signs Temperature: 98.0 F Blood Pressure: 112/72 Pulse: 56 Respirations: 16 Pulse Ox (%): 99 - Physical Exam General: Alert, In no apparent distress, Oriented x3, Cooperative HEENT: Atraumatic, Normocephalic, Mucous membr. moist/pink Neck: Supple Respiratory: Clear to auscultation bilaterally, Normal air movement Cardiovascular: Normal pulses, Regular rate/rhythm Gastrointestinal: Normal bowel sounds, Soft and benign, Non-distended, No tenderness, No masses, No rebound, No guarding Musculoskeletal: No erythema, No tenderness, No warmth Integumentary: No tenderness/swelling, No erythema, No warmth, No cyanosis Neurological: Normal speech, Normal strength at 5/5 x4 extr, Normal tone, Normal affect - Studies Laboratory Data (last 24 hrs) 07/24/18 20:50: PT 12.8 H, INR 1.09 07/24/18 20:50: WBC 7.4, Hgb 13.1, Hct 38.4, Plt Count 220 07/24/18 20:50: Sodium 144, Potassium 4.1, BUN 16, Creatinine 1.08, Glucose 114 H, Magnesium 2.1, Total Bilirubin 0.2, AST 13 L, ALT 16, Alkaline Phosphatase 81 Medications List Reviewed: Yes Assessment & Plan Discharge Plan: Home Plan to discharge in: 24 Hours Physician Review Additional Text: Impression: Chest pain Hypertension Hyperlipidemia Chronic kidney disease, stage III Depression History of lung nodule currently being followed Tobacco abuse Plan: Chest pain: So far cardiac enzymes unremarkable. Cardiology to evaluate. Patient likely would need echocardiogram and cardiac stress test to further evaluate due to her risk factors. Await to see if cardiology recommends to do this as an outpatient or inpatient. Patient has seen Cardiology-Dr. Green in the past. Prior cardiac stress test years ago was unremarkable. If the patient remains 1 more day to have cardiac evaluation then I will turn the service over to Dr. Harris tomorrow. I will go over the plan of care. Hypertension: Blood pressure very well controlled. Will decrease lisinopril to 5 mg daily. Hyperlipidemia: Continue with her medication of Lipitor 20 mg daily. Chronic kidney disease, stage III: Patient appears to have stage III chronic kidney disease. Patient on lisinopril. Lisinopril decreased to 5 mg daily. Recommend to monitor renal function as an outpatient. Patient may benefit with nephrology evaluation as an outpatient to further monitor. Depression: Patient will continue with her home medication History of lung nodule currently being followed: Patient reports history of lung nodule that is being followed by pulmonology in [place]. Recommend to follow up with pulmonology as directed. Tobacco abuse: Tobacco cessation addressed in detail. Patient may require nicotine patch while in the hospital. Time Spent Managing Pts Care (In Minutes): 55
[2018-07-25] MEDS ORDERED: VIT D TB PO SCH (09:00)
[2018-07-25] MEDS ORDERED: ENOXAPARIN 60 MG/0.6 ML SQ SCH (09:00)
[2018-07-25] MEDS ORDERED: HOME MED 1 EA UNK (Fluoxetine Hcl [Fluoxetine Hcl] 20 MG) PO SCH (09:00)
[2018-07-25] MEDS ORDERED: LISINOPRIL 10 MG TAB PO SCH (09:00)
[2018-07-25] MEDS ORDERED: [UNRECOGNIZED DRUG - OTHER] PO SCH (09:00)
[2018-07-25] MEDS ORDERED: CALCIUM CARBONATE PO SCH (09:00)
[2018-07-25] MEDS ORDERED: VITAMIN D3 PO SCH (09:00)
[2018-07-25] MEDS ORDERED: ATORVASTATIN 20 MG TAB PO SCH (09:00)
[2018-07-25] MEDS: FAMOTIDINE 20 MG TAB PO SCH ×2 (10:14→20:14)
[2018-07-25] MEDS: CALCIUM CARB 500MG/VIT D 200 IU TAB PO SCH ×2 (10:14→20:13)
[2018-07-25] MEDS: LISINOPRIL 10 MG TAB PO SCH (10:14)
[2018-07-25] MEDS: FLUOXETINE HCL 20 MG PO SCH (10:15)
[2018-07-25] MEDS: ATORVASTATIN 20 MG TAB PO SCH (10:16)
[2018-07-25] MEDS ORDERED: TRAMADOL HCL 50 MG TAB PO PRN (11:39)
[2018-07-25] MEDS: ACETAMINOPHEN 500 MG TAB PO PRN ×2 (12:24→22:47)
[2018-07-25 15:42] LABS: Urine Appearance CLEAR; Urine Bilirubin NEGATIVE (NEG); Urine Blood TRACE (NEG); Urine Color YELLOW; Urine Glucose NEGATIVE (NEG); Urine Protein NEGATIVE (NEG); Urine Specific Gravity <=1.005 (1.005-1.030); Urine Urobilinogen 0.2 mg/dL (0.2-1.0)
--- NOTE | 2018-07-25 15:48 | CON ---
A 67-year-old woman. Chief Complaint: Chest pain and dyspnea on exertion. History Of Present Illness: Mrs. Diaz has been having chest pain and shortness of breath since Thursday 5 days ago. She notes that mild exertion causes her to get tight in the chest. She has been coughing and has never had myocardial infarction or stroke. No history of intracoronary stents or other revascularization procedures. Outpatient Medications: Lisinopril, fluoxetine, atorvastatin, and a multivitamin with calcium and vitamin D. Social History: She is a cigarette smoker between half and full pack per day. Allergies: SHE IS ALLERGIC TO CODEINE, CYCLOBENZAPRINE, LEVAQUIN, AND PENICILLINS. Physical Examination: General: 5 feet 2 inches, 135 pounds. HEENT: Normal. Lungs: Clear, although decreased breath sounds are noted all bronchial and not vesicular. Heart: Within normal limits. Abdomen: Soft. Extremities: Within normal limits. No cyanosis, clubbing, or edema. Laboratory Data: Her total cholesterol is 181, HDL 68, her LDL is 91. She has a blood sugar random of 114. Troponins are normal. Her electrocardiogram shows no infarction, injury or ischemia. There are nonspecific repolarization changes. Impression: My Impression is that the patient may have coronary artery disease , it may be severe obstructive lung disease or heart failure. I will recommend we do a pharmacologic nuclear stress test and echo tomorrow. If those are normal, she can be discharged home. If they are abnormal, we will consider doing a cardiac cath. DIANNE Voice ID: [id number] Report ID: [id number] TOVA
[2018-07-25 16:15] LABS: Urine Bacteria <20 /HPF (<20); Urine RBC <5 /HPF (NONE SEEN)
[2018-07-25 16:16] LABS: Urine Culture Reflex Order NOT NEEDED
[2018-07-25] MEDS ORDERED: INFLUENZA VACCINE (for 3y+) 0.5 ML DOSE IMVAC ONE (17:00)
[2018-07-25] MEDS ORDERED: ENOXAPARIN 40 MG/0.4 ML SQ SCH (17:00)
[2018-07-25] MEDS ORDERED: ATORVASTATIN 80 MG TAB PO SCH (21:00)
[2018-07-26 06:18] LABS: Magnesium 2.1 mg/dL (1.8-2.4); Potassium 4.7 mmol/L (3.5-5.1)
[2018-07-26] MEDS ORDERED: REGADENOSON 0.4 MG/5 ML SYR IV ONE (08:06)
[2018-07-26] MEDS: NICOTINE 14 MG/PAT TD SCH (08:58)
--- NOTE | 2018-07-26 12:03 | RAD REPORT ---
EXAM DESCRIPTION: NM - Rest Stress Cardiac Imaging - 07/26/2018 11:54 am CLINICAL HISTORY: CP Chest pain. COMPARISON: No comparisons TECHNIQUE: The patient was administered approximately 10mCi of Tc 99m Sestamibi prior to resting SPE CT imaging of the heart. The patient was then administered approximately 30 mCi of Tc 99m Sestamibi f ollowing exercise or pharmacologic stress. Multiplanar SPECT images were reviewed. FINDINGS: A moderate to large stress-induced ischemia defect is seen involving the anterior wall ext ending to the apex. No fixed defect is seen to suggest hibernating myocardium or scarred myocardium. The end diastolic volume is 86 ml, the end systolic volume is 45 ml, and the ejection fraction is 48 %. IMPRESSION: Moderate to large area of stress-induced ischemia involving the anterior wall extending to the apex.
--- NOTE | 2018-07-26 12:31 | TREADPHA ---
DX: CHEST PAIN Date of Study: 07/26/2018 Ht: 5 2 Wt: 135 lb 0 oz Consulting Physician: MESSI MEDICATIONS: TYLENOL, ASPIRIN, LOVENOX, PEPCID HISTORY: 67 YEAR OLD FEMALE WITH COMPLIANTS OF CHEST PAIN. HISTORY OF HYPERTENSION, VERTIGO, HYPERLIPIDEMIA, POSITIVE SMOKER, SMOKES HALF A PACK PER DAY. PHYSICIAL EXAMINATION: RESTING B.P.: 118/77 RESTING H.R.: 64 RESTING EKG: SINUS, NON-SPECIFIC T WAVE ABNORMALITY. PROTOCOL: LEXISCAN EXERCISE TIME: 3:30 B.P. AT PEAK STRESS: 1333/71 IMPRESSION: LEXISCAN INJECTED, CARDIOLITE INJECTED PER PROTOCOL. SEE NUCLEAR MEDICINE REPORT. NO SUPRAVENTRICULAR TACHYCARDIA. NO VENTRICULAR TACHYCARDIA. NO PREMATURE VENTRICULAR COMPLEXES, DENIED CHEST PAIN SEVERE CHEST TIGHTNESS. NON-DIAGNOSTIC ELECTROCARDIOGRAM WITH LEXISCAN STRESS.
[2018-07-26] MEDS: ASPIRIN EC 81 MG TAB PO SCH (12:32)
[2018-07-26] MEDS: FLUOXETINE HCL 20 MG PO SCH (12:33)
[2018-07-26] MEDS: CALCIUM CARB 500MG/VIT D 200 IU TAB PO SCH ×2 (12:33→20:09)
[2018-07-26] MEDS: ATORVASTATIN 20 MG TAB PO SCH (12:33)
[2018-07-26] MEDS: FAMOTIDINE 20 MG TAB PO SCH ×2 (12:33→20:10)
[2018-07-26] MEDS: LISINOPRIL 10 MG TAB PO SCH (12:34)
[2018-07-26] MEDS: ACETAMINOPHEN 500 MG TAB PO PRN ×2 (12:38→23:07)
--- NOTE | 2018-07-26 13:34 | ECHO ---
HEIGHT: 5 ft 2 in WEIGHT: 135 lb 0 oz DATE OF STUDY: 07/26/[address]: Ermias Dominguez MD 2-DIMENSIONAL: YES M.MODE: YES DOPPLER: YES COLOR FLOW: YES TDS: NO PORTABLE: NO DEFINITY: NO BUBBLE STUDY: NO DIAGNOSIS: CHEST PAIN CARDIAC HISTORY: CATHERIZATION: NO SURGERY: NO PROSTHETIC VALVE: NO PACEMAKER: NO MEASUREMENTS (cm) DIASTOLIC (NORMALS) SYSTOLIC (NORMALS) IVSd 0.8 (0.6-1.2) LA Diam 2.5 (1.9-4.0) LVEF 68% LVIDd 4.9 (3.5-5.7) LVIDs 3.0 (2.0-3.5) %FS 38% LVPWd 1.0(0.6-1.2) Ao Diam 2.9 (2.0-3.7) 2 DIMENSIONAL ASSESSMENT: RIGHT ATRIUM: NORMAL LEFT ATRIUM: NORMAL RIGHT VENTRICLE: NORMAL LEFT VENTRICLE: NORMAL TRICUSPID VALVE: NORMAL MITRAL VALVE: NORMAL PULMONIC VALVE: NORMAL AORTIC VALVE: NORMAL PERICARDIAL EFFUSION: NONE AORTIC ROOT: NORMAL LEFT VENTRICULAR WALL MOTION: DOPPLER/COLOR FLOW: PHYSIOLOGIC TRICUSPID REGURGTATION. NORMAL RIGHT VENTRICULAR SYSTOLIC PRESSURE. COMMENTS: NORMAL 2D ECHOCARDIOGRAM WITH DOPPLER. TECHNOLOGIST: JEFFY YBARRA
--- NOTE | 2018-07-26 18:52 | PN ---
Date of Progress Note: 07/26/2018 Subjective: The patient is seen and examined. Chart reviewed and case discussed with RN. The patie nt going for a cardiac stress test today. at the bedside. The patient reports chest pain wi th exertion. Medications: List reviewed. Physical Examination: Vital Signs: Temperature 98.3, heart rate 78, blood pressure 115/59, respirations 18, O2 97% on room air. General: Awake, alert, and oriented x3. Some mild distress. Elderly female, appears older than sta dionna age. CV: S1, S2. Regular rate and rhythm. Peripheral pulses weak bilaterally. Respiratory: Diminished breath sounds. No wheezing or stridor. Gastrointestinal: Abdomen is soft, nontender, nondistended. Positive bowel sounds. Extremities: No clubbing, cyanosis, or edema. Neuro: Cranial nerves 2 through 12 intact grossly. No focal neurological deficit. Speech is normal . Code Status: Full. Laboratory Data: Sodium 144, potassium 4.7, chloride 108, CO2 30, BUN 14, creatinine 1.01, glucose 1 01, calcium 8.6, magnesium 2.1. Echocardiogram shows EF of 68%. Cardiac stress test shows moderate stress induced ischemia in the anterior wall extending to the apex. Assessment And Plan: A 67-year-old female with: 1.Chest pain. Cardiac stress test is positive for moderate anterior wall ischemia stress-induced. The patient will likely need cardiac catheterization. Dr. Dominguez is on board. We will discuss [facility] with him. 2.Essential hypertension, stable. Resume home medications as appropriate. 3.Shortness of breath, likely secondary to above. 4.Nicotine dependence with cigarette smoking, continuous. The patient has been counseled. 5.Deep venous thrombosis prophylaxis addressed. Plan: We will add beta-marisol and BIENVENIDO inhibitor. Anticipate heart catheterization in a.m. SA/MODL Voice ID: [id number] Report ID: [id number]
[2018-07-27] MEDS ORDERED: HEPA 1000U/500MLS 2,000 UNIT/1,000 ML BAG IV ONE (06:56)
[2018-07-27] MEDS ORDERED: LIDOCAINE 1% MPF 30 ML VIAL ONE (06:57)
[2018-07-27] MEDS ORDERED: NA CHLORIDE 0.9% 500 ML ONE (07:24)
[2018-07-27] MEDS ORDERED: HEPARIN 5000 UNIT/ML 1 ML VIAL ONE (07:33)
[2018-07-27] MEDS ORDERED: FENTANYL CITR 100 MCG/2 ML ONE (07:33)
[2018-07-27] MEDS ORDERED: NITROGLYCERIN/D5W 25 MG/250 ML BTL IV ONE (07:33)
[2018-07-27] MEDS ORDERED: NITROGLYCERIN 100 MCG/ML SYR (for cath lab use only) IV ONE (07:33)
[2018-07-27] MEDS ORDERED: ATROPINE SULF 1 MG/10 ML SYR IV ONE (07:33)
[2018-07-27] MEDS ORDERED: MIDAZOLAM HCL 2 MG/2 ML INJ ONE (07:33)
[2018-07-27] MEDS ORDERED: NICARDIPINE HCL 25 MG/10 ML IV ONE (07:33)
[2018-07-27] MEDS ORDERED: NA CHLORIDE 0.9% 0 ML ONE (07:34)
[2018-07-27] MEDS: NICOTINE 14 MG/PAT TD SCH (11:51)
[2018-07-27] MEDS: ASPIRIN EC 81 MG TAB PO SCH (11:51)
[2018-07-27] MEDS: CALCIUM CARB 500MG/VIT D 200 IU TAB PO SCH (11:51)
[2018-07-27] MEDS: FAMOTIDINE 20 MG TAB PO SCH (11:52)
[2018-07-27] MEDS: ATORVASTATIN 20 MG TAB PO SCH (11:52)
[2018-07-27] MEDS: LISINOPRIL 10 MG TAB PO SCH (11:52)
[2018-07-27] MEDS: FLUOXETINE HCL 20 MG PO SCH (11:52)
--- NOTE | 2018-07-27 18:38 | P.DS ---
Admission Date: 07/26/18 Discharge Date: 07/27/18 Primary Care Provider: OMAR([place], [place]); Cardiology-Dr. Green Disposition: TRANSFER TO [facility] Discharge Condition: SERIOUS Reason for Admission: chest pain Consultations: Dr. Dominguez, cardiology Procedures: 07/26/2018: Stress test, positive for anterior wall ischemia, stress-induced. 07/27/2018: Cardiac catheterization, positive for LAD stenosis. Transferred to [facility] for bypass surgery Brief History of Present Illness: Ms Diaz is a 67 years old woman with history of HTN, Vertigo, tobacco abuse, who start about 3 days ago, with episodes of SOB on exertion, associated with nausea and diaphoresis. She came to ED yesterday, had negative work up and was sent home. Today, her symptoms got worse, and she start feeling heaviness sensation on her chest. The location of the pain was retrosternal, associated with nausea, SOB and diaphoresis episode, lasting for 20 minutes. Initial trop I is negative, EKG shows SR at 75 bpm, with ST depresion on inferior leads and Q waves on lateral leads (not acute changes), similar to previous EKG. Hospital Course: Patient was admitted with chest pain. Cardiology was consulted. Her cardiac stress test was positive for moderate anterior wall ischemia, stress and. Patient underwent cardiac catheterization with Dr. Dominguez, cardiology. Her cardiac catheterization was positive for LAD stenosis. Cardiology recommended a bypass surgery. She was then transferred to [facility] for procedure. Vital Signs/Physical Exam: Temp Pulse Resp BP Pulse Ox 97.8 F 75 18 98/75 98 07/27/18 11:55 07/27/18 11:55 07/27/18 11:55 07/27/18 11:55 07/27/18 11:55 General: Alert, In no apparent distress, Oriented x3 HEENT: Atraumatic, PERRLA, EOMI Neck: Supple, JVD not distended Respiratory: Clear to auscultation bilaterally, Normal air movement Cardiovascular: Regular rate/rhythm, Normal S1 S2 Gastrointestinal: Normal bowel sounds, No tenderness Musculoskeletal: No tenderness Integumentary: No rashes Neurological: Normal speech, Normal tone, Normal affect Lymphatics: No axilla or inguinal lymphadenopathy Laboratory Data at Discharge: WBC 7.4 K/uL (4.3-10.9) 07/24/18 20:50 Hgb 13.1 g/dL (12.0-15.0) 07/24/18 20:50 Hct 38.4 % (36.0-45.0) 07/24/18 20:50 Plt Count 220 K/uL (152-406) 07/24/18 20:50 PT 12.8 SECONDS (9.5-12.5) H 07/24/18 20:50 INR 1.09 07/24/18 20:50 Sodium 144 mmol/L (136-145) 07/26/18 05:27 Potassium 4.7 mmol/L (3.5-5.1) 07/26/18 05:27 BUN 14 mg/dL (7-18) 07/26/18 05:27 Creatinine 1.01 mg/dL (0.55-1.3) 07/26/18 05:27 Glucose 101 mg/dL (74-106) 07/26/18 05:27 Magnesium 2.1 mg/dL (1.8-2.4) 07/26/18 05:27 Total Bilirubin 0.2 mg/dL (0.2-1.0) 07/24/18 20:50 AST 13 U/L (15-37) L 07/24/18 20:50 ALT 16 U/L (12-78) 07/24/18 20:50 Alkaline Phosphatase 81 U/L (45-117) 07/24/18 20:50 Troponin I < 0.02 ng/mL (0.0-0.045) 07/25/18 20:10 Triglycerides 108 mg/dL (<150) 07/25/18 05:42 Cholesterol 181 mg/dL (<200) 07/25/18 05:42 HDL Cholesterol 68 mg/dL (40-60) H 07/25/18 05:42 Cholesterol/HDL Ratio 2.66 07/25/18 05:42 Home Medications: Atorvastatin Calcium 20 mg PO DAILY 07/25/18 Calcium Carbonate/Vitamin D3 [Calcium 600 with Vit D Chew Tb] 1,200 mg PO DAILY 07/25/18 Fluoxetine HCl 20 mg PO DAILY 07/25/18 Lisinopril 10 mg PO DAILY 07/25/18 Time spent managing pt's care (in minutes): 45
--- NOTE | 2018-07-27 19:11 | OP ---
Surgeon: Ermias Dominguez MD Procedure: Left heart catheterization with coronary left ventricular angiography. Procedure Findings: The patient has an ostial LAD that is 99% stenosed. ES grade 2 flow antegrade . The lesion abuts the left main. There was no relief from the left main and was believed not to be a good candidate for stent. The right coronary had a 70% mid LAD stenosis that appeared irregular a nd possibly contained dissection. A large ramus and circumflex are free of any significant disease. Left ventricular ejection fraction is normal with normal pressures. 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 Prepared and draped in usual sterile fashion. The right radial artery was id entified. Tariq's and Barbeau tests were normal. Lidocaine 1% was used to anesthetize the tissues a round the right radial artery. It was entered using a 21-gauge needle, cannulated with a 0.021 inch diameter guidewire. A 6-Irish Terumo sheath was placed. It was flushed and a radial cocktail was g iven consisting of nicardipine, heparin, and nitroglycerin. A ID Quantique TIG catheter was advanced into the ascending aorta using fluoroscopic guidance and a BigFixumo Glidewire with a short radius J-tip. A catheter was used to angiogram left ventricle, right coronary, and left coronary in multiple views. At the end of procedure, catheters were withdrawn over a wire. The sheath flushed, removed, and the arteriotomy closed with a regular TR band. Complications From The Procedure: None. Estimated Blood Loss: 5 cc. File Clerk: Kale Salazar. KISHORE/AIDA Voice ID: [id number] Report ID: [id number]
== END 2018-07-27 15:25 | disposition short-term general hospital (02) | DRG 287 ==
LOC: ER 20:31 → ERHOLD 23:32 → 4TH 07-25 00:25 → OBSVTOIN 07-26 14:41
PROVIDERS: ADMIT Internal Medicine; ATTEND Family Medicine
PROC: 4A023N7 Measurement of Cardiac Sampling and Pressure, Left Heart, Percutaneous Approach (ICD-10-PCS; principal; 2018-07-27)
PROC: B211YZZ Fluoroscopy of Multiple Coronary Arteries using Other Contrast (ICD-10-PCS; 2018-07-27)
PROC: B215YZZ Fluoroscopy of Left Heart using Other Contrast (ICD-10-PCS; 2018-07-27)
DX: I25.119 Atherosclerotic heart disease of native coronary artery with unspecified angina pectoris (principal); F17.210 Nicotine dependence, cigarettes, uncomplicated; E78.5 Hyperlipidemia, unspecified; F32.9 Major depressive disorder, single episode, unspecified; I12.9 Hypertensive chronic kidney disease with stage 1 through stage 4 chronic kidney disease, or unspecified chronic kidney disease; N18.3 Chronic kidney disease, stage 3 (moderate); Z88.5 Allergy status to narcotic agent; Z88.0 Allergy status to penicillin; R42 Dizziness and giddiness
CPT/HCPCS: 36415; 71045; 78452; 80048; 80061; 80076; 81001; 83735; 83880; 84484; 85025; 85610; 93005; 93017; 93306; 93458; 96372; 96374; 99284; 99285; A9500; C1893; G0378; J0583; J1644; J1650; J2250; J2405; J2785; J3010

== ENCOUNTER 2019-09-30 06:17 | Day surgery (SDC) | payer OTHER ==
[2019-09-29 12:20] LABS: Absolute Lymphocytes (CBC) 2.5 K/uL (0.7-4.9); Hematocrit 43.1 % (36.0-45.0); Lymphocytes % 33.9 % (15.3-44.8); MPV 9.7 fL (7.6-11.3); RBC Red Blood Cell Count 4.52 M/uL (3.86-4.86)
--- NOTE | 2019-09-29 12:26 | RAD REPORT ---
EXAM DESCRIPTION: RAD - Chest Pa And Lat (2 Views) - 09/29/2019 12:14 pm CLINICAL HISTORY: preop Chest pain. COMPARISON: Chest Single View dated 07/23/2018; Chest Single View dated 02/07/2017; CHEST SINGLE VIEW d ated 02/18/2003; CHEST PA AND LAT 2 VIEW dated 09/15/1988 FINDINGS: The lungs are clear. The heart is upper limit of normal in size. Sternotomy wires present. IMPRESSION: No acute or concerning finding suspected.
[2019-09-29 12:31] LABS: Protime INR 1.13
[2019-09-29 12:33] LABS: Potassium 5.3 mmol/L (3.5-5.1)
--- OUTSIDE RECORDS SUMMARY | 2019-09-30 06:18 | XMS REPORT | Clinical Summary ---
:1950 Author Organization [facility] Address [address] [place] [address] Care Team Providers Name Role Phone Olga Baker ZOYA Primary Care Provider Allergies Active Allergy Reactions Severity Noted Date Comments Codeine GI Intolerance High 02/13/2016 Penicillins GI Intolerance High 02/13/2016 Medications Medication Sig Dispensed Refills Start Date End Date Status FLUoxetine (PROzac) 20 Take 20 mg by 0 Active MG capsule mouth daily. atorvastatin (LIPITOR) Take 20 mg by 0 Active 20 MG tablet mouth daily. albuterol (VENTOLIN Inhale 2 puffs 18 g 3 03/17/201802/17 HFA) 90 mcg/actuation every 6 (six) inhaler hours as needed for wheezing. Active Problems Problem Noted Date Seasonal allergic rhinitis due to pollen 03/14/2016 Lung nodule < 6cm on CT 02/13/2016 Endobronchial mass 02/13/2016 Chronic obstructive pulmonary disease 02/13/2016 Tobacco abuse 02/13/2016 RODRIGUES (dyspnea on exertion) Immunizations Name Administration Dates Next Due FLUZONE HIGH-DOSE PF 03/17/2018 FLUZONE QUAD PF 03/17/2016 Pneumococcal Conjugate 13-Valent 03/17/2016 [...] travel history available. Last Filed Vital Signs Not on file Plan of Treatment Health Maintenance Due Date Last Done Comments BREAST CANCER SCREENING 2000 COLONOSCOPY SCREENING 2000 SHINGLES VACCINES (#1) 2000 INFLUENZA VACCINE 12/17/2019 03/17/2018, 03/17/2016 65+ PNEUMOCOCCAL VACCINE Completed 03/17/2018, 03/17/2016 Results Not on fileafter 09/29/2018 Insurance Payer Benefit Plan / Subscriber ID Effective Phone Address T ype Group Dates MEDICARE MEDICARE PART A xxxxxxxxxxx 2015-Pres [place], [place] Medicare AND B ent COMMERCIAL MISC MISC COMMERCIAL xxxxxxxxxx 2016-[facility] Commercial ent Advance Directives For more information, please contact: [phone] Type Date Recorded 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
--- OUTSIDE RECORDS SUMMARY | 2019-09-30 06:19 | XMS REPORT | Clinical Summary ---
:1950 Author Organization [facility] Address [address] [place] [address] Care Team Providers Name Role Phone Pcp, No Primary Care Provider Unavailable Harry Morales Unavailable Allergies Active Allergy Reactions Severity Noted Date Comments Codeine Anaphylaxis High 07/27/2018 Levofloxacin Nausea And Vomiting 07/27/2018 Penicillins Anaphylaxis High 07/27/2018 Medications Medication Sig Dispensed Refills Start Date End Date Status FLUoxetine (PROZAC) Take 20 mg by 0 Active 20 MG tablet mouth daily. atorvastatin Take 1 tablet 30 tablet 11 08/04/2018 08/04/2019 E xpired (LIPITOR) 40 MG (40 mg total) by tablet mouth daily. aspirin 81 MG EC Take 1 tablet 30 tablet 11 08/04/2018 08/04/19 20 tablet (81 mg total) by mouth daily. metoprolol Take 0.5 tablets 30 tablet 11 08/04/2018 08/04/2019 (LOPRESSOR) 25 MG (12.5 mg total) tablet by mouth 2 (two) times daily. Active Problems Problem Noted Date S/P CABG (coronary artery bypass graft) 07/29/2018 Acute blood loss anemia 07/29/2018 Respiratory insufficiency 07/29/2018 CAD (coronary artery disease) 07/27/2018 Family History Medical History Relation Name Comments Cancer Brother No Known Problem Daughter Heart disease Father Heart disease Mother No Known Problem Son Relation Name Status Comments Brother Daughter Father Mother Son Social History Tobacco Use Types Packs/Day Years Used Date Former Smoker 0.5 40 Quit: 07/24/19 Smokeless Tobacco: Never Used Tobacco Cessation: Counseling Given: Yes Alcohol Use Drinks/Week oz/Week Comments No Alcohol Habits Answer Date Recorded How often do you have a drink containing alcohol? Never 07/27/2018 How many drinks containing alcohol do you have on a typical Not asked day when you are drinking? How often do you have six or more drinks on one occasion? No t asked Sex Assigned at Date Recorded Not on file Job Start Date Occupation Industry Not on file Not on file Not on file Travel History Travel Start Travel End No recent travel history available. Last Filed Vital Signs Not on file Plan of Treatment Health Maintenance Due Date Last Done Comments BREAST CANCER SCREENING 1950 COLON CANCER SCREENING COLONOSCOPY 1950 PNEUMOCOCCAL 65+ LOW/MEDIUM RISK (1 of 2 - PCV13) 12/04/2015 MEDICARE ANNUAL WELLNESS (YEAR 2 or FIRST YEAR if no 11/16/2016 IPPE) INFLUENZA VACCINE (Season Ended) 2020 Results Not on fileafter 09/29/2018 Insurance Payer Benefit Plan / Group Subscriber ID Type Phone A ddress MEDICARE MEDICARE A B xxxxxxxxxxx Medicare MCR GENERIC MEDICARE xxxxxxxxxx Medigap SUPPLEMENT/INDIVIDUAL SUPPLEMENT Advance Directives For more information, please contact:[address] [phone] Code Status Date Activated Date Inactivated Comments Full Code 07/27/2018 10:10 PM 08/04/2018 3:43 PM This code status was determined by: Patient Full Code 07/27/2018 8:48 PM 07/27/2018 10:10 PM This code status was determined by: Patient
--- OUTSIDE RECORDS SUMMARY | 2019-09-30 06:21 | XMS REPORT ---
:1950 Author Organization [facility] t Address [address] [place] [address] Care Team Providers Name Role Phone Olivia PSYCHOLOGIST CHIEF Primary Care Physician CARLOTA HERRERA Attending Clinician Unavailable CARLOTA HERRERA Admitting Clinician Unavailable Problems Condition Condition Condition Status Onset Resolution Last Treating Co mments Source Name Details Category Date Date Treatment Clinician Date 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 3-13 da bypass Bypass 00:00: [facility] grafts x 2 Grafts X 2 00 al [facility] Depressive Depressive Problem Active [place] disorder Disorder 1-04 da 00:00: [facility] Vertigo Vertigo Problem Active [place] 1-04 da 00:00: [facility] Hyperlipid Hyperlipid Problem Active [place] emia emia 927 da 00:00: [facility] Imaging Imaging Problem Active [place] result Result 1-13 da abnormal Abnormal 00:00: [facility] p 00 al [facility] Seasonal Seasonal Disease Active 2015-05 [place] allergic allergic Method i rhinitis rhinitis 00:00: st due to due to 00 pollen pollen Endobronch Endobronch Disease Active H aaron ial mass ial mass 02-12 Method i 00:00: st 00 Chronic Chronic Disease Active [place] obstructiv obstructiv 02-12 [place] thodi [place] e 00:00: st pulmonary pulmonary 00 disease disease Tobacco Tobacco Disease Active [place] abuse abuse 02-12 Methodi 00:00: st 00 RODRIGUES RODRIGUES Disease Active [place] (dyspnea (dyspnea Method i on on st exertion) exertion) Allergies, Adverse Reactions, Alerts Allergy Allergy Status Severity Reaction(s) Onset Inactive Treating Comm ents Source Name Type Date Date Clinician Codeine Propensi Active [facility] [place] ty to Intolerance 02-12 Metho di adverse 00:00: st reaction 00 s to drug Penicill Propensi Active [facility] [place] ins ty to Intolerance 02-12 Metho di adverse 00:00: st reaction 00 s to drug Codeine Allergy Active [place] to da substanc [facility] Levaquin Allergy Active [place] to da substanc [facility] PENICILL Allergy Active [place] to da substanc [facility] Family History Family Member Diagnosis Comments Start Date Stop Date Source Natural brother Cancer [facility] ethodist Natural brother Throat cancer [place] Amish Natural father Heart failure [place] [facility]ish Natural mother Heart failure [place] [facility] Social History Social Habit Start Date Stop Date Quantity Comments Source History of tobacco Cigarette Smoker [place] use Amish Sex Assigned At [place] [facility] Cigarettes smoked 2018-03-17 2018-03-17 [place] current (pack per 00:00:00 00:00:00 Method) - Reported Cigarette 2018-03-17 2018-03-17 [place] pack-years 00:00:00 00:00:00 Amish Alcohol intake 2018-03-17 2018-03-17 Current [place] 00:00:00 00:00:00 non-drinker of Amish alcohol (finding) Smoking Status Start Date Stop Date Source Former Smoker [place] [facility] Current every day smoker 2018-03-17 00:00:00 Eloise cameron Amish Medications Ordered Filled Start Stop Current Ordering Indication Dosage Frequency Signature Comments Components Source Medication Medication Date Date Medication? Clinician (SIG) Name Name FLUoxetine 2017-05 Yes 20mg QD Take 20 mg [place] (PROzac) 20 by mouth Meth serg MG capsule 15:01: daily. st 44 atorvastati 2017-05 Yes 20mg QD Take 20 mg Price n (LIPITOR) 0 by mouth Meth serg 20 MG 15:01: daily. st tablet 44 albuterol 2017-05 2019- No 2{puff} Q6H Inhale 2 [place] (VENTOLIN 0-31 11- puffs Methodi HFA) 90 00:00: 04:[address] mcg/actuati 00 :00 (six) on inhaler hours as needed for wheezing. aspirin aspirin No aspirin [place] [facility] atorvastati atorvastati No 1 Q1D atorvastat [place] n 20 mg n 20 mg in 20 mg da tablet Take tablet Take tablet [facility] 1 tablet 1 tablet Take 1 al every day every day tablet Hea lth by oral by oral every day Outr eac route. route. by oral h route. Program Calcium 500 Calcium 500 No 1 Q1D Calcium [place] + D 500 mg + D 500 mg 500 + D da (1,250 (1,250 500 mg [facility] mg)-200 mg)-200 (1,250 al unit tablet unit tablet mg)-200 Health Take 1 Take 1 unit Outreac tablet tablet tablet h every day every day Take 1 Pro gram by oral by oral tablet route as route as every day directed. directed. by oral route as directed. fluoxetine fluoxetine No fluoxetine [place] 20 mg 20 mg 20 mg da capsule capsule capsule [facility] p TAKE 1 TAKE 1 TAKE 1 al CAPSULE BY CAPSULE BY CAPSULE BY Health MOUTH ONCE MOUTH ONCE MOUTH ONCE Outreac DAILY DAILY DAILY h Program metoprolol metoprolol No metoprolol [place] succinate succinate succinate da 25mg 1/2 25mg 1/2 25mg 1/2 [facility] tab bid. tab bid. tab bid. de Health Outreac [facility] Program Multi Multi No Multi [place] Vitamin One Vitamin One Vitamin da tab daily. tab daily. One tab [facility] daily. de [facility]re[facility] Immunizations Ordered Immunization Filled Immunization Date Status Commen ts Source Name Name pneumococcal pneumococcal 2019-04-18 Completed [place] polysaccharide PPV23 polysaccharide PPV23 09:47:59 [facility] influenza, influenza, 2019-02-15 Completed [place] injectable, injectable, 00:00:00 [facility] quadrivalent quadrivalent [facility] Out reach Program FLUZONE HIGH-DOSE PF 2018-03-17 Completed [place] 00:00:00 [facility] Pneumococcal 2018-03-17 Completed [place] Polysaccharide 00:00:00 [facility]ish pneumococcal pneumococcal 2016-09-09 Completed [place] conjugate PCV 13 conjugate PCV 13 00:00:00 [facility]re[facility] Program FLUZONE QUAD PF 2016-03-17 Completed [place] 00:00:00 [facility] Pneumococcal 2016-03-17 Completed [place] Conjugate 13-Valent 00:00:00 Metho dist Tdap Tdap 2014-11-29 Completed [place] 00:00:00 [facility] Vital Signs Vital Name Observation Time Observation Value Comments Source BP Diastolic 2019-04-18 00:00:00 80 [facility] Height 2019-04-18 00:00:00 60 [in_i] [facility] BMI (Body Mass 2019-04-18 00:00:00 28.7 kg/m2 [facility] Index) Health Outreach Program BP Systolic 2019-04-18 00:00:00 138 mm[Hg] [facility] Body Weight 2019-04-18 00:00:00 147 [lb_av] [facility] Procedures Procedure Date / Time Performed Performing Clinician Sourc e Screening for 2019-04-22 00:00:00 [place] [facility] Malignant Neoplasm of Health Out reach Colon Program MAMMO, screening, 2019-04-18 00:00:00 [place] [facility] digital, bilateral Health Outrea ch Program DXA BONE DENSITY, 2019-04-18 00:00:00 [place] [facility] AXIAL Health Outreach [facility] Plan of Care Planned Activity Planned Date Details Comments Source Future Scheduled Test 2019-12-17 INFLUENZA VACCINE [place] 00:00:00 [code = INFLUENZA VACCINE] Diagnostic Test 2019-04-18 fecal occult blood, [place] Pending 00:00:00 stool [code = fecal [facility] occult blood, stool] Outreac h Program Future Scheduled Test 2000 BREAST CANCER [place] 00:00:00 SCREENING [code = BREAST CANCER SCREENING] Future Scheduled Test 2000 COLONOSCOPY [place] 00:00:00 SCREENING [code = COLONOSCOPY SCREENING] Future Scheduled Test 2000 SHINGLES VACCINES [place] 00:00:00 (#1) [code = SHINGLES VACCINES (#1)] Future Appointment 2020-04-18 Alia Baker, [place] 00:00:[address]; [facility] [place], [place] Outreach [place] [id number] Future Appointment 2019-10-17 Alia Baker, [place] 00:00:[address]; [facility], [place], [place] Outreach [place] [id number] Instructions [place] [facility] Pro[facility] m Encounters Start End Encounter Admission Attending Care Care Encounter Source Date/Time Date/Time Type Type Clinicians Facility Department ID 2019-04-18 2019-04-18 Precious Jyoti [place] - [id number] [place] 00:00:00 00:00:00 Sammy Baker da 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 [address], [place] [address], [place] [id number] Progr am , Ph. Results Test Description Test Time Test Comments Results Result Comments Source BASIC METABOLIC PANEL 2018-08-04 08:37:00 Test Item Value Reference Range Interpretation Comme nts SODIUM (BEAKER) (test code 140 meq/L 136-145 = 381) POTASSIUM (BEAKER) (test 4.0 meq/L 3.5-5.1 code = 379) CHLORIDE (BEAKER) (test 107 meq/L 98-107 code = 382) CO2 (BEAKER) (test code = 22 meq/L 22-29 355) BLOOD UREA NITROGEN 9 mg/dL 7-21 (BEAKER) (test code = 354) CREATININE (BEAKER) (test 0.82 mg/dL 0.57-1.25 code = 358) GLUCOSE RANDOM (BEAKER) 125 mg/dL 70-105 H (test code = 652) CALCIUM (BEAKER) (test code 8.8 mg/dL 8.4-10.2 = 697) EGFR (BEAKER) (test code = 70 mL/min/1.73 sq m ESTIMATED GFR IS NOT 1092) ACCURATE CRE ATININE CLEARANCE IN NV EDICTING GLOMERULAR FILT RATION RATE. ESTIMATED GFR IS NOT APPLICABLE FOR DIALYSIS PATIENTS. CBC (HEMOGRAM ONLY)2018-08-04 06:39:00 Test Item Value Reference Range Interpretation Comments WHITE BLOOD CELL COUNT (BEAKER) 10.1 K/ L 3.5-10.5 (test code = 775) RED BLOOD CELL COUNT (BEAKER) 2.90 M/ L 3.93-5.22 L (test code = 761) HEMOGLOBIN (BEAKER) (test code = 9.3 GM/DL 11.2-15.7 L 410) HEMATOCRIT (BEAKER) (test code = 27.9 % 34.1-44.9 L 411) MEAN CORPUSCULAR VOLUME (BEAKER) 96.2 fL 79.4-94.8 H (test code = 753) MEAN CORPUSCULAR HEMOGLOBIN 32.1 pg 25.6-32.2 (BEAKER) (test code = 751) MEAN CORPUSCULAR HEMOGLOBIN CONC 33.3 GM/DL 32.2-35.5 (BEAKER) (test code = 752) RED CELL DISTRIBUTION WIDTH 14.2 % 11.7-14.4 (BEAKER) (test code = 412) PLATELET COUNT (BEAKER) (test 340 K/CU MM 150-450 code = 756) MEAN PLATELET VOLUME (BEAKER) 10.3 fL 9.4-12.3 (test code = 754) NUCLEATED RED BLOOD CELLS 0 /100 WBC 0-0 (BEAKER) (test code = 413) [id number] 05:16:00 Test Item Value Reference Range Interpretation Comments MAGNESIUM (BEAKER) (test code = 2.1 mg/dL 1.6-2.6 627) BASIC METABOLIC [id number] 05:16:00 Test Item Value Reference Range Interpretation Comments SODIUM (BEAKER) 139 meq/L 136-145 (test code = 381) POTASSIUM (BEAKER) 3.6 meq/L 3.5-5.1 (test code = 379) CHLORIDE (BEAKER) 106 meq/L 98-107 (test code = 382) CO2 (BEAKER) (test 23 meq/L 22-29 code = 355) BLOOD UREA NITROGEN 9 mg/dL 7-21 (BEAKER) (test code = 354) CREATININE (BEAKER) 0.82 mg/dL 0.57-1.25 (test code = 358) GLUCOSE RANDOM 110 mg/dL 70-105 H (BEAKER) (test code = 652) CALCIUM (BEAKER) 9.1 mg/dL 8.4-10.2 (test code = 697) EGFR (BEAKER) (test 70 mL/min/1.73 ESTIMA VESNA GFR IS code = 1092) sq m NOT ACCURATE CREATININE CLEARANCE IN PREDICTING GLOMERULAR FILTRATION RATE . ESTIMATED GFR I S NOT APPLICABLE FOR DIALYSIS PATIEN TS. CBC (HEMOGRAM ONLY)2018-08-03 04:54:00 Test Item Value Reference Range Interpretation Comments WHITE BLOOD CELL COUNT (BEAKER) 10.5 K/ L 3.5-10.5 (test code = 775) RED BLOOD CELL COUNT (BEAKER) 3.01 M/ L 3.93-5.22 L (test code = 761) HEMOGLOBIN (BEAKER) (test code = 9.6 GM/DL 11.2-15.7 L 410) HEMATOCRIT (BEAKER) (test code = 29.2 % 34.1-44.9 L 411) MEAN CORPUSCULAR VOLUME (BEAKER) 97.0 fL 79.4-94.8 H (test code = 753) MEAN CORPUSCULAR HEMOGLOBIN 31.9 pg 25.6-32.2 (BEAKER) (test code = 751) MEAN CORPUSCULAR HEMOGLOBIN CONC 32.9 GM/DL 32.2-35.5 (BEAKER) (test code = 752) RED CELL DISTRIBUTION WIDTH 14.0 % 11.7-14.4 (BEAKER) (test code = 412) PLATELET COUNT (BEAKER) (test 312 K/CU MM 150-450 code = 756) MEAN PLATELET VOLUME (BEAKER) 10.3 fL 9.4-12.3 (test code = 754) NUCLEATED RED BLOOD CELLS 0 /100 WBC 0-0 (BEAKER) (test code = 413) CT, [id number] 03:48:00FINAL REPORT CLINICAL HISTORY: Abnormal abdominal x-ray, concern for ascitesversus abdominal mass displacing bowel loops FINDINGS: Multiple axial images of the abdomen and pelvis were performed without intravenous contrast. Oral contrast was not given. This exam was performed according to our departmental dose-optimization program, which includes automated exposure control, adjustment of the mA and/or kV according to patient size and/or use of the iterative reconstruction technique. Comparison:None. Correlation is made with a KUB performed 08/02/2018. Lower chest: Small to moderate bilateral pleural effusions with adjacent atelectasis versus pneumonitis. No pneumothorax. Mild cardiomegaly. Liver: The right hepatic margin measures 18 cm in craniocaudal dimension at the midclavicular line, enlarged Gallbladder and biliary tree: No significant findings. Spleen: No significant findings. Adrenal Glands: No significant findings. Kidneys and ureters: No significant findings. Stomach and Duodenum: No significant findings. Pancreas: No significant findings. Bowel: No significantfindings. Appendix: Normal. Bladder: No significant findings. Major vascular structures: Atherosclerotic calcifications Reproductive organs: No significant findings. Other: No abdominal mass. No ascites. No free intraperitoneal air. Skeleton: No acute bony abnormality. IMPRESSION: No CT abnormalityto explain the findings on recent abdominal x-ray. Specifically, there is no abdominal mass or ascites. Mild hepatomegaly. Small to moderate bilateral pleural effusions with adjacent atelectasis versuspneumonitis. Signed: Ramu Jimenez Verified Date/Time: 08/03/2018 03:48:58 Reading Location: [address] Reading Room RAD, ABDOMEN/KUB, 1 VIEW [id number] 14:26:00Reason for exam:- >abdominal distension, nauseaFINAL REPORT EXAM: AP abdominal radiograph, 2 images HISTORY PROVIDED: Abdominal distention, nausea COMPARISON: None available IMPRESSION:There is a relative paucity of bowel gas within the abdomen except for loops of colon within the left abdomen. There are also loops of air-filled bowel within the pelvis. The displaced bowel loops in the abdomen could be related to ascites displacing the bowel loops to the left, however an abdominal mass is not completely excluded. Consider a CT of the abdomen and pelvis for further evaluation. While no definite free air is seen, this examination is insensitive for the detection of free air. No acute osseous abnormality. Degenerative changes of the spine and hips are noted. Signed: Judith Amanda Verified Date/Time: 08/02/2018 14:26:34 Reading Location: [facility] Reading Room [id number] 05:13:00 Test Item Value Reference Range Interpretation Comments MAGNESIUM (BEAKER) (test code = 1.8 mg/dL 1.6-2.6 627) BASIC METABOLIC [id number] 05:13:00 Test Item Value Reference Range Interpretation Comments SODIUM (BEAKER) 139 meq/L 136-145 (test code = 381) POTASSIUM (BEAKER) 3.7 meq/L 3.5-5.1 (test code = 379) CHLORIDE (BEAKER) 105 meq/L 98-107 (test code = 382) CO2 (BEAKER) (test 25 meq/L 22-29 code = 355) BLOOD UREA NITROGEN 12 mg/dL 7-21 (BEAKER) (test code = 354) CREATININE (BEAKER) 0.70 mg/dL 0.57-1.25 (test code = 358) GLUCOSE RANDOM 112 mg/dL 70-105 H (BEAKER) (test code = 652) CALCIUM (BEAKER) 8.7 mg/dL 8.4-10.2 (test code = 697) EGFR (BEAKER) (test 83 mL/min/1.73 ESTIMA VESNA GFR IS code = 1092) sq m NOT ACCURATE CREATININE CLEARANCE IN PREDICTING GLOMERULAR FILTRATION RATE . ESTIMATED GFR I S NOT APPLICABLE FOR DIALYSIS PATIEN TS. CBC (HEMOGRAM ONLY)2018-08-02 04:51:00 Test Item Value Reference Range Interpretation Comments WHITE BLOOD CELL COUNT (BEAKER) 10.7 K/ L 3.5-10.5 H (test code = 775) RED BLOOD CELL COUNT (BEAKER) 2.93 M/ L 3.93-5.22 L (test code = 761) HEMOGLOBIN (BEAKER) (test code = 9.1 GM/DL 11.2-15.7 L 410) HEMATOCRIT (BEAKER) (test code = 28.2 % 34.1-44.9 L 411) MEAN CORPUSCULAR VOLUME (BEAKER) 96.2 fL 79.4-94.8 H (test code = 753) MEAN CORPUSCULAR HEMOGLOBIN 31.1 pg 25.6-32.2 (BEAKER) (test code = 751) MEAN CORPUSCULAR HEMOGLOBIN CONC 32.3 GM/DL 32.2-35.5 (BEAKER) (test code = 752) RED CELL DISTRIBUTION WIDTH 13.7 % 11.7-14.4 (BEAKER) (test code = 412) PLATELET COUNT (BEAKER) (test 240 K/CU MM 150-450 code = 756) MEAN PLATELET VOLUME (BEAKER) 10.9 fL 9.4-12.3 (test code = 754) NUCLEATED RED BLOOD CELLS 0 /100 WBC 0-0 (BEAKER) (test code = 413) [id number] 05:56:00 Test Item Value Reference Range Interpretation Comments MAGNESIUM (BEAKER) (test code = 2.0 mg/dL 1.6-2.6 627) BASIC METABOLIC [id number] 05:56:00 Test Item Value Reference Range Interpretation Comments SODIUM (BEAKER) 138 meq/L 136-145 (test code = 381) POTASSIUM (BEAKER) 3.6 meq/L 3.5-5.1 (test code = 379) CHLORIDE (BEAKER) 106 meq/L 98-107 (test code = 382) CO2 (BEAKER) (test 24 meq/L 22-29 code = 355) BLOOD UREA NITROGEN 13 mg/dL 7-21 (BEAKER) (test code = 354) CREATININE (BEAKER) 0.73 mg/dL 0.57-1.25 (test code = 358) GLUCOSE RANDOM 105 mg/dL 70-105 (BEAKER) (test code = 652) CALCIUM (BEAKER) 8.7 mg/dL 8.4-10.2 (test code = 697) EGFR (BEAKER) (test 80 mL/min/1.73 ESTIMA VESNA GFR IS code = 1092) sq m NOT ACCURATE CREATININE CLEARANCE IN PREDICTING GLOMERULAR FILTRATION RATE . ESTIMATED GFR I S NOT APPLICABLE FOR DIALYSIS PATIEN TS. CBC (HEMOGRAM ONLY)2018-08-01 05:30:00 Test Item Value Reference Range Interpretation Comments WHITE BLOOD CELL COUNT (BEAKER) 11.4 K/ L 3.5-10.5 H (test code = 775) RED BLOOD CELL COUNT (BEAKER) 2.86 M/ L 3.93-5.22 L (test code = 761) HEMOGLOBIN (BEAKER) (test code = 9.1 GM/DL 11.2-15.7 L 410) HEMATOCRIT (BEAKER) (test code = 27.8 % 34.1-44.9 L 411) MEAN CORPUSCULAR VOLUME (BEAKER) 97.2 fL 79.4-94.8 H (test code = 753) MEAN CORPUSCULAR HEMOGLOBIN 31.8 pg 25.6-32.2 (BEAKER) (test code = 751) MEAN CORPUSCULAR HEMOGLOBIN CONC 32.7 GM/DL 32.2-35.5 (BEAKER) (test code = 752) RED CELL DISTRIBUTION WIDTH 13.7 % 11.7-14.4 (BEAKER) (test code = 412) PLATELET COUNT (BEAKER) (test 193 K/CU MM 150-450 code = 756) MEAN PLATELET VOLUME (BEAKER) 11.7 fL 9.4-12.3 (test code = 754) NUCLEATED RED BLOOD CELLS 0 /100 WBC 0-0 (BEAKER) (test code = 413) BASIC METABOLIC [id number] 04:46:00 Test Item Value Reference Range Interpretation Comments SODIUM (BEAKER) 137 meq/L 136-145 (test code = 381) POTASSIUM (BEAKER) 4.0 meq/L 3.5-5.1 (test code = 379) CHLORIDE (BEAKER) 106 meq/L 98-107 (test code = 382) CO2 (BEAKER) (test 23 meq/L 22-29 code = 355) BLOOD UREA NITROGEN 15 mg/dL 7-21 (BEAKER) (test code = 354) CREATININE (BEAKER) 0.76 mg/dL 0.57-1.25 (test code = 358) GLUCOSE RANDOM 105 mg/dL 70-105 (BEAKER) (test code = 652) CALCIUM (BEAKER) 8.9 mg/dL 8.4-10.2 (test code = 697) EGFR (BEAKER) (test 76 mL/min/1.73 ESTIMA VESNA GFR IS code = 1092) sq m NOT ACCURATE CREATININE CLEARANCE IN PREDICTING GLOMERULAR FILTRATION RATE . ESTIMATED GFR I S NOT APPLICABLE FOR DIALYSIS PATIEN TS. CBC (HEMOGRAM ONLY)2018-07-31 04:26:00 Test Item Value Reference Range Interpretation Comments WHITE BLOOD CELL COUNT (BEAKER) 13.1 K/ L 3.5-10.5 H (test code = 775) RED BLOOD CELL COUNT (BEAKER) 2.93 M/ L 3.93-5.22 L (test code = 761) HEMOGLOBIN (BEAKER) (test code = 9.1 GM/DL 11.2-15.7 L 410) HEMATOCRIT (BEAKER) (test code = 28.3 % 34.1-44.9 L 411) MEAN CORPUSCULAR VOLUME (BEAKER) 96.6 fL 79.4-94.8 H (test code = 753) MEAN CORPUSCULAR HEMOGLOBIN 31.1 pg 25.6-32.2 (BEAKER) (test code = 751) MEAN CORPUSCULAR HEMOGLOBIN CONC 32.2 GM/DL 32.2-35.5 (BEAKER) (test code = 752) RED CELL DISTRIBUTION WIDTH 13.5 % 11.7-14.4 (BEAKER) (test code = 412) PLATELET COUNT (BEAKER) (test 147 K/CU MM 150-450 L code = 756) MEAN PLATELET VOLUME (BEAKER) 12.0 fL 9.4-12.3 (test code = 754) NUCLEATED RED BLOOD CELLS 0 /100 WBC 0-0 (BEAKER) (test code = 413) [id number] 08:08:00 Test Item Value Reference Range Interpretation Comments MAGNESIUM (BEAKER) (test code = 1.9 mg/dL 1.6-2.6 627) BASIC METABOLIC [id number] 08:08:00 Test Item Value Reference Range Interpretation Comments SODIUM (BEAKER) 139 meq/L 136-145 (test code = 381) POTASSIUM (BEAKER) 4.4 meq/L 3.5-5.1 (test code = 379) CHLORIDE (BEAKER) 107 meq/L 98-107 (test code = 382) CO2 (BEAKER) (test 22 meq/L 22-29 code = 355) BLOOD UREA NITROGEN 12 mg/dL 7-21 (BEAKER) (test code = 354) CREATININE (BEAKER) 0.77 mg/dL 0.57-1.25 (test code = 358) GLUCOSE RANDOM 106 mg/dL 70-105 H (BEAKER) (test code = 652) CALCIUM (BEAKER) 9.0 mg/dL 8.4-10.2 (test code = 697) EGFR (BEAKER) (test 75 mL/min/1.73 ESTIMA VESNA GFR IS code = 1092) sq m NOT ACCURATE CREATININE CLEARANCE IN PREDICTING GLOMERULAR FILTRATION RATE . ESTIMATED GFR I S NOT APPLICABLE FOR DIALYSIS PATIEN TS. CBC (HEMOGRAM ONLY)2018-07-30 04:17:00 Test Item Value Reference Range Interpretation Comments WHITE BLOOD CELL COUNT (BEAKER) 11.8 K/ L 3.5-10.5 H (test code = 775) RED BLOOD CELL COUNT (BEAKER) 2.94 M/ L 3.93-5.22 L (test code = 761) HEMOGLOBIN (BEAKER) (test code = 9.3 GM/DL 11.2-15.7 L 410) HEMATOCRIT (BEAKER) (test code = 28.9 % 34.1-44.9 L 411) MEAN CORPUSCULAR VOLUME (BEAKER) 98.3 fL 79.4-94.8 H (test code = 753) MEAN CORPUSCULAR HEMOGLOBIN 31.6 pg 25.6-32.2 (BEAKER) (test code = 751) MEAN CORPUSCULAR HEMOGLOBIN CONC 32.2 GM/DL 32.2-35.5 (BEAKER) (test code = 752) RED CELL DISTRIBUTION WIDTH 13.8 % 11.7-14.4 (BEAKER) (test code = 412) PLATELET COUNT (BEAKER) (test 152 K/CU MM 150-450 code = 756) MEAN PLATELET VOLUME (BEAKER) 11.3 fL 9.4-12.3 (test code = 754) NUCLEATED RED BLOOD CELLS 0 /100 WBC 0-0 (BEAKER) (test code = 413) RAD, CHEST, 1 VIEW, NON [id number] 08:21:00while patient is intubated or has chest tubes.Reason for exam:->Status post CV SurgeryShould thisbe performed at the bedside?->YesFINAL REPORT CLINICAL HISTORY: Status post CV Surgery TECHNIQUE: 1 view of the chest. COMPARISON: 07/28/2018 IMPRESSION: The supporting lines and tubes are unchanged. There is no p neumothorax. Lower lung opacities are unchanged. The cardiomediastinal silhouette is magnified by technique with sternotomy wires. Signed: Gege Barba [facility] Verified Date/Time: 07/29/2018 08:21:09 Reading Location: [facility] Radiology Reading Room [id number] 06:05:00 Test Item Value Reference Range Interpretation Comments PHOSPHORUS (BEAKER) (test code = 4.2 mg/dL 2.3-4.7 604) [id number] 06:05:00 Test Item Value Reference Range Interpretation Comments MAGNESIUM (BEAKER) (test code = 1.9 mg/dL 1.6-2.6 627) BASIC METABOLIC [id number] 06:05:00 Test Item Value Reference Range Interpretation Comments SODIUM (BEAKER) 141 meq/L 136-145 (test code = 381) POTASSIUM (BEAKER) 4.6 meq/L 3.5-5.1 (test code = 379) CHLORIDE (BEAKER) 112 meq/L 98-107 H (test code = 382) CO2 (BEAKER) (test 23 meq/L 22-29 code = 355) BLOOD UREA NITROGEN 12 mg/dL 7-21 (BEAKER) (test code = 354) CREATININE (BEAKER) 0.81 mg/dL 0.57-1.25 (test code = 358) GLUCOSE RANDOM 136 mg/dL 70-105 H (BEAKER) (test code = 652) CALCIUM (BEAKER) 8.3 mg/dL 8.4-10.2 L (test code = 697) EGFR (BEAKER) (test 71 mL/min/1.73 ESTIMA VESNA GFR IS code = 1092) sq m NOT ACCURATE CREATININE CLEARANCE IN PREDICTING GLOMERULAR FILTRATION RATE . ESTIMATED GFR I S NOT APPLICABLE FOR DIALYSIS PATIEN TS. CBC (HEMOGRAM ONLY)2018-07-29 04:13:00 Test Item Value Reference Range Interpretation Comments WHITE BLOOD CELL COUNT (BEAKER) 8.7 K/ L 3.5-10.5 (test code = 775) RED BLOOD CELL COUNT (BEAKER) 2.67 M/ L 3.93-5.22 L (test code = 761) HEMOGLOBIN (BEAKER) (test code = 8.6 GM/DL 11.2-15.7 L 410) HEMATOCRIT (BEAKER) (test code = 26.1 % 34.1-44.9 L 411) MEAN CORPUSCULAR VOLUME (BEAKER) 97.8 fL 79.4-94.8 H (test code = 753) MEAN CORPUSCULAR HEMOGLOBIN 32.2 pg 25.6-32.2 (BEAKER) (test code = 751) MEAN CORPUSCULAR HEMOGLOBIN CONC 33.0 GM/DL 32.2-35.5 (BEAKER) (test code = 752) RED CELL DISTRIBUTION WIDTH 13.7 % 11.7-14.4 (BEAKER) (test code = 412) PLATELET COUNT (BEAKER) (test 143 K/CU MM 150-450 L code = 756) MEAN PLATELET VOLUME (BEAKER) 10.8 fL 9.4-12.3 (test code = 754) NUCLEATED RED BLOOD CELLS 0 /100 WBC 0-0 (BEAKER) (test code = 413) BLOOD GAS, [id number] 04:06:00 Test Item Value Reference Range Interpretation Comments PH ARTERIAL (BEAKER) (test code = 7.36 7.35-7.45 383) PCO2 ARTERIAL (BEAKER) (test code 44 mmHg 35-45 = 384) PO2 ARTERIAL (BEAKER) (test code 107 mmHg 80-90 H = 385) O2 SATURATION ARTERIAL (BEAKER) 97.8 % 96.0-97.0 H (test code = 386) HCO3 ARTERIAL (BEAKER) (test code 25 mmol/L 21-29 = 388) BASE EXCESS ARTERIAL (BEAKER) -1.1 mmol/L -2.0-3.0 (test code = 387) PATIENT TEMPERATURE (BEAKER) 36.7 C (test code = 1818) FIO2 (BEAKER) (test code = 1819) 28.0 % BLOOD GAS, [id number] 00:33:00 Test Item Value Reference Range Interpretation Comments PH ARTERIAL (BEAKER) (test code = 7.40 7.35-7.45 383) PCO2 ARTERIAL (BEAKER) (test code 41 mmHg 35-45 = 384) PO2 ARTERIAL (BEAKER) (test code 170 mmHg 80-90 H = 385) O2 SATURATION ARTERIAL (BEAKER) 99.1 % 96.0-97.0 H (test code = 386) HCO3 ARTERIAL (BEAKER) (test code 25 mmol/L 21-29 = 388) BASE EXCESS ARTERIAL (BEAKER) -0.1 mmol/L -2.0-3.0 (test code = 387) PATIENT TEMPERATURE (BEAKER) 36.7 C (test code = 1818) FIO2 (BEAKER) (test code = 1819) 40.0 % GLUCOSE-STAT [id number] 00:33:00 Test Item Value Reference Range Interpretation Comments GLUCOSE RANDOM (BEAKER) (test code 134 mg/dL 70-110 H = 652) HGB/HCT (H&H) - STAT [id number] 00:33:00 Test Item Value Reference Range Interpretation Comments HEMOGLOBIN (BEAKER) (test code = 8.6 g/dL 12.0-15.0 L 410) HEMATOCRIT (BEAKER) (test code = 25.0 % 36.0-45.0 L 411) RAD, CHEST, 1 VIEW, NON [id number] 23:32:00Reason for exam:->respiratory insufficencyShould this be performed at the bedside?->YesFINAL REPORT RAD, CHEST, 1 VIEW, NON DEPT INDICATION: respiratory insufficency COMPARISON: Same day's examination FINDINGS: Portable frontal view of the chest. IMPRESSION: Support Lines: Interval extubation and removal of the previously seen enteric tube. Otherwise unchanged support apparatus. Lungs and pleura: Decreased lung volumes with increased bibasilar atelectasis. Pulmonary vascular markings are increased in the interval which is likely related to hypoventilatory technique. No large pleural effusion or pneumothorax. Heart and mediastinum: Stable contours. Stable surgical changes.Additional findings: None. Signed: Carlita Nieves Verified Date/Time: 07/28/2018 23:32:13 Reading Location: [address] Transitional Reading Room LACTIC ACID, ARTERIAL 2018-07-28 22:20:00 Test Item Value Reference Range Interpretation Comments LACTATE BLOOD ARTERIAL (2) 1.0 mmol/L 0.5-2.2 (BEAKER) (test code = 2874) BLOOD GAS, [id number] 22:08:00 Test Item Value Reference Range Interpretation Comments PH ARTERIAL (BEAKER) (test code = 7.34 7.35-7.45 L 383) PCO2 ARTERIAL (BEAKER) (test code 50 mmHg 35-45 H = 384) PO2 ARTERIAL (BEAKER) (test code = 106 mmHg 80-90 H 385) O2 SATURATION ARTERIAL (BEAKER) 97.6 % 96.0-97.0 H (test code = 386) HCO3 ARTERIAL (BEAKER) (test code 27 mmol/L 21-29 = 388) BASE EXCESS ARTERIAL (BEAKER) 0.5 mmol/L -2.0-3.0 (test code = 387) PATIENT TEMPERATURE (BEAKER) (test 36.9 C code = 1818) FIO2 (BEAKER) (test code = 1819) 36.0 % HGB/HCT (H&H) - STAT [id number] 22:08:00 Test Item Value Reference Range Interpretation Comments HEMOGLOBIN (BEAKER) (test code = 8.5 g/dL 12.0-15.0 L 410) HEMATOCRIT (BEAKER) (test code = 25.0 % 36.0-45.0 L 411) LACTIC ACID, [id number] 20:37:00 Test Item Value Reference Range Interpretation Comments LACTATE BLOOD 1.8 mmol/L 0.5-2.2 Specimen sligh tly ARTERIAL (2) (BEAKER) hemoly zed (test code = 2874) SODIUM NA-STAT [id number] 20:14:00 Test Item Value Reference Range Interpretation Comments SODIUM (BEAKER) (test code = 381) 139 meq/L 135-148 POTASSIUM-STAT [id number] 20:14:00 Test Item Value Reference Range Interpretation Comments POTASSIUM (BEAKER) (test code = 3.5 meq/L 3.6-5.5 L 379) GLUCOSE-STAT [id number] 20:14:00 Test Item Value Reference Range Interpretation Comments GLUCOSE RANDOM (BEAKER) (test code 128 mg/dL 70-110 H = 652) BLOOD GAS, [id number] 20:14:00 Test Item Value Reference Range Interpretation Comments PH ARTERIAL (BEAKER) (test code = 7.34 7.35-7.45 L 383) PCO2 ARTERIAL (BEAKER) (test code 49 mmHg 35-45 H = 384) PO2 ARTERIAL (BEAKER) (test code 80 mmHg 80-90 = 385) O2 SATURATION ARTERIAL (BEAKER) 95.2 % 96.0-97.0 L (test code = 386) HCO3 ARTERIAL (BEAKER) (test code 26 mmol/L 21-29 = 388) BASE EXCESS ARTERIAL (BEAKER) -0.1 mmol/L -2.0-3.0 (test code = 387) PATIENT TEMPERATURE (BEAKER) 36.9 C (test code = 1818) FIO2 (BEAKER) (test code = 1819) 40.0 % HGB/HCT (H&H) - STAT [id number] 20:14:00 Test Item Value Reference Range Interpretation Comments HEMOGLOBIN (BEAKER) (test code = 9.2 g/dL 12.0-15.0 L 410) HEMATOCRIT (BEAKER) (test code = 27.0 % 36.0-45.0 L 411) HEMOGLOBIN [id number] 17:32:00 Test Item Value Reference Range Interpretation Comments HEMOGLOBIN A1C (BEAKER) (test code = 5.8 % 4.3-6.1 368) HEMOGLOBIN [id number] 17:00:00 Test Item Value Reference Range Interpretation Comments HEMOGLOBIN A1C (BEAKER) (test code = 5.8 % 4.3-6.1 368) RAD, CHEST, 1 VIEW, NON [id number] 16:44:00Reason for exam:->Status post CV Surgery post op day 0Should this be performed at the bedside?->YesFINAL REPORT COMPARISON: 07/28/2018 TECHNIQUE: Single view of the chest FINDINGS: Patient has presumably undergone recent cardiothoracic surgery. There is mild prominence of interstitial markings. No overt consolidation, edema, or large pleural effusion. No gross pneumothorax. Multiple support lines and tubes are in place. An endotracheal tube projects approximately 4.2 cm abovethe kitty. A nasogastric tube projects with the tip in the distal esophagus or GE junction. This could be advanced. Left-sided chest tube/ mediastinal drain drain noted. A right internal jugular central line seen with tip in the SVC. Signed: Jerrod Hendrickson MDReport Verified Date/Time: 07/28/2018 16:44:35 Reading Location: [facility] Radiology Reading Room MAGNESIUM 2018-07-28 16:26:00 Test Item Value Reference Range Interpretation Comments MAGNESIUM (BEAKER) 2.8 mg/dL 1.6-2.6 H Specimen slightly (test code = 627) hemolyzed [id number] 16:26:00 Test Item Value Reference Range Interpretation Comments PHOSPHORUS (BEAKER) 3.4 mg/dL 2.3-4.7 Specimen slightly (test code = 604) hemolyzed [id number] 16:26:00 Test Item Value Reference Range Interpretation Comments POTASSIUM (BEAKER) 4.3 meq/L 3.5-5.1 Specimen slightly (test code = 379) hemolyzed [id number] 16:26:00 Test Item Value Reference Range Interpretation Comments GLUCOSE RANDOM (BEAKER) (test code 104 mg/dL 70-105 = 652) BASIC METABOLIC [id number] 16:26:00 Test Item Value Reference Range Interpretation Comments SODIUM (BEAKER) 143 meq/L 136-145 (test code = 381) POTASSIUM (BEAKER) 4.3 meq/L 3.5-5.1 Specimen slightly (test code = 379) hemolyzed CHLORIDE (BEAKER) 111 meq/L 98-107 H (test code = 382) CO2 (BEAKER) (test 22 meq/L 22-29 code = 355) BLOOD UREA NITROGEN 13 mg/dL 7-21 (BEAKER) (test code = 354) CREATININE (BEAKER) 0.82 mg/dL 0.57-1.25 Specimen slightly (test code = 358) hemolyzed GLUCOSE RANDOM 104 mg/dL 70-105 (BEAKER) (test code = 652) CALCIUM (BEAKER) 9.6 mg/dL 8.4-10.2 (test code = 697) EGFR (BEAKER) (test 70 mL/min/1.73 ESTIMA VESNA GFR IS code = 1092) sq m NOT ACCURATE CREATININE CLEARANCE IN PREDICTING GLOMERULAR FILTRATION RATE . ESTIMATED GFR I S NOT APPLICABLE FOR DIALYSIS PATIEN TS. LACTIC ACID, [id number] 16:24:00 Test Item Value Reference Range Interpretation Comments LACTATE BLOOD 0.9 mmol/L 0.5-2.2 Specimen sligh tly ARTERIAL (2) (BEAKER) hemoly zed (test code = 2874) [id number] 16:20:00 Test Item Value Reference Range Interpretation Comments FIBRINOGEN LEVEL (BEAKER) (test 237 mg/dl 225-434 code = 658) [id number] 16:20:00 Test Item Value Reference Range Interpretation Comments PROTIME (BEAKER) (test code = 18.4 seconds 11.7-14.7 H 759) INR (BEAKER) (test code = 370) 1.5 <=5.9 PARTIAL THROMBOPLASTIN TIME 34.8 seconds 22.5-36.0 (BEAKER) (test code = 760) RECOMMENDED COUMADIN/WARFARIN INR THERAPY RANGESSTANDARD DOSE: 2.0 - 3.0 Includes: PROPHYLAXIS forvenous thrombosis, systemic embolization; TREATMENT for venous thrombosis and/or pulmonary embolus.HIGH RISK: Target INR is 2.5-3.5 for patients with mechanical heart valves.PROTHROMBIN [id number] 16:19:00 Test Item Value Reference Range Interpretation Comments PROTIME (BEAKER) (test code = 18.4 seconds 11.7-14.7 H 759) INR (BEAKER) (test code = 370) 1.5 <=5.9 RECOMMENDED COUMADIN/WARFARIN INR THERAPY RANGESSTANDARD DOSE: 2.0 - 3.0 Includes: PROPHYLAXIS forvenous thrombosis, systemic embolization; TREATMENT for venous thrombosis and/or pulmonary embolus.HIGH RISK: Target INR is 2.5-3.5 for patients with mechanical heart valves.CBC W/PLT COUNT & AUTO DIFFERENTIAL 2018-07-28 16:11:00 Test Item Value Reference Range Interpretation Comments WHITE BLOOD CELL COUNT (BEAKER) 9.6 K/ L 3.5-10.5 (test code = 775) RED BLOOD CELL COUNT (BEAKER) 3.19 M/ L 3.93-5.22 L (test code = 761) HEMOGLOBIN (BEAKER) (test code = 10.4 GM/DL 11.2-15.7 L 410) HEMATOCRIT (BEAKER) (test code = 30.1 % 34.1-44.9 L 411) MEAN CORPUSCULAR VOLUME (BEAKER) 94.4 fL 79.4-94.8 (test code = 753) MEAN CORPUSCULAR HEMOGLOBIN 32.6 pg 25.6-32.2 H (BEAKER) (test code = 751) MEAN CORPUSCULAR HEMOGLOBIN CONC 34.6 GM/DL 32.2-35.5 (BEAKER) (test code = 752) RED CELL DISTRIBUTION WIDTH 13.3 % 11.7-14.4 (BEAKER) (test code = 412) PLATELET COUNT (BEAKER) (test 153 K/CU MM 150-450 code = 756) MEAN PLATELET VOLUME (BEAKER) 10.9 fL 9.4-12.3 (test code = 754) NUCLEATED RED BLOOD CELLS 0 /100 WBC 0-0 (BEAKER) (test code = 413) NEUTROPHILS RELATIVE PERCENT 71 % (BEAKER) (test code = 429) LYMPHOCYTES RELATIVE PERCENT 21 % (BEAKER) (test code = 430) MONOCYTES RELATIVE PERCENT 3 % (BEAKER) (test code = 431) EOSINOPHILS RELATIVE PERCENT 4 % (BEAKER) (test code = 432) BASOPHILS RELATIVE PERCENT 0 % (BEAKER) (test code = 437) NEUTROPHILS ABSOLUTE COUNT 6.83 K/ L 1.56-6.13 H (BEAKER) (test code = 670) LYMPHOCYTES ABSOLUTE COUNT 2.04 K/ L 1.18-3.74 (BEAKER) (test code = 414) MONOCYTES ABSOLUTE COUNT (BEAKER) 0.31 K/ L 0.24-0.36 (test code = 415) EOSINOPHILS ABSOLUTE COUNT 0.35 K/ L 0.04-0.36 (BEAKER) (test code = 416) BASOPHILS ABSOLUTE COUNT (BEAKER) 0.03 K/ L 0.01-0.08 (test code = 417) IMMATURE GRANULOCYTES-RELATIVE 0 % 0-1 PERCENT (BEAKER) (test code = 2801) OXYGEN SATURATION, [id number] 16:07:00 Test Item Value Reference Range Interpretation Comments O2 SATURATION (MEASURED) (BEAKER) 61.6 % (test code = 1455) BLOOD GAS, [id number] 16:07:00 Test Item Value Reference Range Interpretation Comments PH ARTERIAL (BEAKER) (test code = 7.54 7.35-7.45 H 383) PCO2 ARTERIAL (BEAKER) (test code 28 mmHg 35-45 L = 384) PO2 ARTERIAL (BEAKER) (test code = 103 mmHg 80-90 H 385) O2 SATURATION ARTERIAL (BEAKER) 98.6 % 96.0-97.0 H (test code = 386) HCO3 ARTERIAL (BEAKER) (test code 24 mmol/L 21-29 = 388) BASE EXCESS ARTERIAL (BEAKER) 1.2 mmol/L -2.0-3.0 (test code = 387) PATIENT TEMPERATURE (BEAKER) (test 34.8 C code = 1818) FIO2 (BEAKER) (test code = 1819) 50.0 % CALCIUM, [id number] 16:07:00 Test Item Value Reference Range Interpretation Comments CALCIUM IONIZED (BEAKER) (test 1.16 mmol/L 1.12-1.27 code = 698) PH, BLOOD (BEAKER) (test code = 7.54 1810) BLOOD GAS, [id number] 14:29:00 Test Item Value Reference Range Interpretation Comments PH ARTERIAL (BEAKER) (test code = 7.48 7.35-7.45 H 383) PCO2 ARTERIAL (BEAKER) (test code 36 mmHg 35-45 = 384) PO2 ARTERIAL (BEAKER) (test code = 369 mmHg 80-90 H 385) O2 SATURATION ARTERIAL (BEAKER) 99.8 % 96.0-97.0 H (test code = 386) HCO3 ARTERIAL (BEAKER) (test code 27 mmol/L 21-29 = 388) BASE EXCESS ARTERIAL (BEAKER) 2.9 mmol/L -2.0-3.0 (test code = 387) PATIENT TEMPERATURE (BEAKER) (test 35.9 C code = 1818) FIO2 (BEAKER) (test code = 1819) 100.0 % GLUCOSE-STAT [id number] 14:29:00 Test Item Value Reference Range Interpretation Comments GLUCOSE RANDOM (BEAKER) (test code 126 mg/dL 70-110 H = 652) HGB/HCT (H&H) - STAT [id number] 14:29:00 Test Item Value Reference Range Interpretation Comments HEMOGLOBIN (BEAKER) (test code = 9.4 g/dL 12.0-15.0 L 410) HEMATOCRIT (BEAKER) (test code = 28.0 % 36.0-45.0 L 411) CALCIUM, [id number] 14:29:00 Test Item Value Reference Range Interpretation Comments CALCIUM IONIZED (BEAKER) (test 1.10 mmol/L 1.12-1.27 L code = 698) PH, BLOOD (BEAKER) (test code = 7.47 1810) SODIUM NA-STAT [id number] 14:28:00 Test Item Value Reference Range Interpretation Comments SODIUM (BEAKER) (test code = 381) 137 meq/L 135-148 POTASSIUM-STAT [id number] 14:28:00 Test Item Value Reference Range Interpretation Comments POTASSIUM (BEAKER) (test code = 4.7 meq/L 3.6-5.5 379) SODIUM NA-STAT [id number] 14:03:00 Test Item Value Reference Range Interpretation Comments SODIUM (BEAKER) (test code = 381) 136 meq/L 135-148 POTASSIUM-STAT [id number] 14:03:00 Test Item Value Reference Range Interpretation Comments POTASSIUM (BEAKER) (test code = 5.4 meq/L 3.6-5.5 379) BLOOD GAS, [id number] 14:03:00 Test Item Value Reference Range Interpretation Comments PH ARTERIAL (BEAKER) (test code = 7.45 7.35-7.45 383) PCO2 ARTERIAL (BEAKER) (test code 42 mmHg 35-45 = 384) PO2 ARTERIAL (BEAKER) (test code = 301 mmHg 80-90 H 385) O2 SATURATION ARTERIAL (BEAKER) 99.7 % 96.0-97.0 H (test code = 386) HCO3 ARTERIAL (BEAKER) (test code 29 mmol/L 21-29 = 388) BASE EXCESS ARTERIAL (BEAKER) 4.1 mmol/L -2.0-3.0 H (test code = 387) PATIENT TEMPERATURE (BEAKER) (test 36.5 C code = 1818) FIO2 (BEAKER) (test code = 1819) 75.0 % GLUCOSE-STAT [id number] 14:03:00 Test Item Value Reference Range Interpretation Comments GLUCOSE RANDOM (BEAKER) (test code 141 mg/dL 70-110 H = 652) HGB/HCT (H&H) - STAT [id number] 14:03:00 Test Item Value Reference Range Interpretation Comments HEMOGLOBIN (BEAKER) (test code = 8.9 g/dL 12.0-15.0 L 410) HEMATOCRIT (BEAKER) (test code = 26.0 % 36.0-45.0 L 411) BLOOD GAS, [id number] 13:55:00 Test Item Value Reference Range Interpretation Comments PH ARTERIAL (BEAKER) (test code = 7.50 7.35-7.45 H 383) PCO2 ARTERIAL (BEAKER) (test code 35 mmHg 35-45 = 384) PO2 ARTERIAL (BEAKER) (test code = 300 mmHg 80-90 H 385) O2 SATURATION ARTERIAL (BEAKER) 99.7 % 96.0-97.0 H (test code = 386) HCO3 ARTERIAL (BEAKER) (test code 28 mmol/L 21-29 = 388) BASE EXCESS ARTERIAL (BEAKER) 3.4 mmol/L -2.0-3.0 H (test code = 387) PATIENT TEMPERATURE (BEAKER) (test 31.0 C code = 1818) FIO2 (BEAKER) (test code = 1819) 65.0 % GLUCOSE-STAT [id number] 13:55:00 Test Item Value Reference Range Interpretation Comments GLUCOSE RANDOM (BEAKER) (test code 166 mg/dL 70-110 H = 652) HGB/HCT (H&H) - STAT [id number] 13:55:00 Test Item Value Reference Range Interpretation Comments HEMOGLOBIN (BEAKER) (test code = 8.2 g/dL 12.0-15.0 L 410) HEMATOCRIT (BEAKER) (test code = 24.0 % 36.0-45.0 L 411) BLOOD GAS, [id number] 13:54:00 Test Item Value Reference Range Interpretation Comments PH VENOUS (BEAKER) (test code = 7.46 7.32-7.42 H 701) PCO2 VENOUS (BEAKER) (test code = 41 mmHg 41-51 755) PO2 VENOUS (BEAKER) (test code = 59 mmHg 25-40 H 702) O2 SATURATION VENOUS (BEAKER) 96.2 % 40.0-70.0 H (test code = 703) HCO3 VENOUS (BEAKER) (test code = 30 mmol/L 21-29 H 705) BASE EXCESS VENOUS (BEAKER) (test 4.2 mmol/L -2.0-3.0 H code = 704) PATIENT TEMPERATURE (BEAKER) (test 31.0 C code = 1818) FIO2 (BEAKER) (test code = 1819) 65.0 % SODIUM NA-STAT [id number] 13:50:00 Test Item Value Reference Range Interpretation Comments SODIUM (BEAKER) (test code = 381) 135 meq/L 135-148 POTASSIUM-STAT [id number] 13:50:00 Test Item Value Reference Range Interpretation Comments POTASSIUM (BEAKER) (test code = 4.3 meq/L 3.6-5.5 379) BLOOD GAS, [id number] 12:49:00 Test Item Value Reference Range Interpretation Comments PH ARTERIAL (BEAKER) (test code = 7.42 7.35-7.45 383) PCO2 ARTERIAL (BEAKER) (test code 37 mmHg 35-45 = 384) PO2 ARTERIAL (BEAKER) (test code 390 mmHg 80-90 H = 385) O2 SATURATION ARTERIAL (BEAKER) 99.8 % 96.0-97.0 H (test code = 386) HCO3 ARTERIAL (BEAKER) (test code 24 mmol/L 21-29 = 388) BASE EXCESS ARTERIAL (BEAKER) -0.7 mmol/L -2.0-3.0 (test code = 387) PATIENT TEMPERATURE (BEAKER) 36.2 C (test code = 1818) FIO2 (BEAKER) (test code = 1819) 100.0 % GLUCOSE-STAT [id number] 12:49:00 Test Item Value Reference Range Interpretation Comments GLUCOSE RANDOM (BEAKER) (test code 114 mg/dL 70-110 H = 652) SODIUM NA-STAT [id number] 12:48:00 Test Item Value Reference Range Interpretation Comments SODIUM (BEAKER) (test code = 381) 137 meq/L 135-148 POTASSIUM-STAT [id number] 12:48:00 Test Item Value Reference Range Interpretation Comments POTASSIUM (BEAKER) (test code = 3.6 meq/L 3.6-5.5 379) HGB/HCT (H&H) - STAT [id number] 12:48:00 Test Item Value Reference Range Interpretation Comments HEMOGLOBIN (BEAKER) (test code = 12.4 g/dL 12.0-15.0 410) HEMATOCRIT (BEAKER) (test code = 36.0 % 36.0-45.0 411) [id number] 07:19:00 Test Item Value Reference Range Interpretation Comments MAGNESIUM (BEAKER) (test code = 1.9 mg/dL 1.6-2.6 627) BASIC METABOLIC [id number] 07:19:00 Test Item Value Reference Range Interpretation Comments SODIUM (BEAKER) 140 meq/L 136-145 (test code = 381) POTASSIUM (BEAKER) 4.0 meq/L 3.5-5.1 (test code = 379) CHLORIDE (BEAKER) 107 meq/L 98-107 (test code = 382) CO2 (BEAKER) (test 24 meq/L 22-29 code = 355) BLOOD UREA NITROGEN 17 mg/dL 7-21 (BEAKER) (test code = 354) CREATININE (BEAKER) 0.88 mg/dL 0.57-1.25 (test code = 358) GLUCOSE RANDOM 102 mg/dL 70-105 (BEAKER) (test code = 652) CALCIUM (BEAKER) 9.3 mg/dL 8.4-10.2 (test code = 697) EGFR (BEAKER) (test 64 mL/min/1.73 ESTIMA VESNA GFR IS code = 1092) sq m NOT ACCURATE CREATININE CLEARANCE IN PREDICTING GLOMERULAR FILTRATION RATE . ESTIMATED GFR I S NOT APPLICABLE FOR DIALYSIS PATIEN TS. LIPID [id number] 07:19:00 Test Item Value Reference Range Interpretation Comments TRIGLYCERIDES (BEAKER) (test code = 101 mg/dL 540) CHOLESTEROL (BEAKER) (test code = 181 mg/dL 631) HDL CHOLESTEROL (BEAKER) (test code 60 mg/dL = 976) LDL CHOLESTEROL CALCULATED (BEAKER) 101 mg/dL (test code = 633) Triglyceride Reference Range: Low Risk <150 Borderline 150-199 High Risk 200-499 Very High Risk >=500Cholesterol Reference Range: Low Risk <200 Borderline 200-239 High Risk >240HDL Cholesterol Reference Range: Low Risk >=60 High Risk <40LDL Cholesterol Reference Range: Optimal <100 Near Optimal 100-129 Borderline 130-159 High 160-189 Very High >=190TROPONIN [id number] 07:04:00 Test Item Value Reference Range Interpretation Comments TROPONIN I (BEAKER) (test code = 397) < ng/mL 0.00-0.03 Troponin I (TnI) levels must be interpreted in the context of the presenting symptoms and the clinical findings. Elevated TnI levels indicate myocardial damage, but are not specific for ischemic heart disease. Elevated TnI levels are seen in patients with other cardiac conditions (including myocarditis and congestive heart failure), and slight TnI elevations occur in patients with other conditions, including sepsis, renal failure, acidosis, acute neurological disease, and persistent tachyarrhythmia.[id number] 06:39:00 Test Item Value Reference Range Interpretation Comments PARTIAL THROMBOPLASTIN TIME 71.4 seconds 22.5-36.0 H (BEAKER) (test code = 760) CBC (HEMOGRAM ONLY)[id number] 06:26:00 Test Item Value Reference Range Interpretation Comments WHITE BLOOD CELL COUNT (BEAKER) 7.9 K/ L 3.5-10.5 (test code = 775) RED BLOOD CELL COUNT (BEAKER) 4.21 M/ L 3.93-5.22 (test code = 761) HEMOGLOBIN (BEAKER) (test code = 13.4 GM/DL 11.2-15.7 410) HEMATOCRIT (BEAKER) (test code = 39.4 % 34.1-44.9 411) MEAN CORPUSCULAR VOLUME (BEAKER) 93.6 fL 79.4-94.8 (test code = 753) MEAN CORPUSCULAR HEMOGLOBIN 31.8 pg 25.6-32.2 (BEAKER) (test code = 751) MEAN CORPUSCULAR HEMOGLOBIN CONC 34.0 GM/DL 32.2-35.5 (BEAKER) (test code = 752) RED CELL DISTRIBUTION WIDTH 13.3 % 11.7-14.4 (BEAKER) (test code = 412) PLATELET COUNT (BEAKER) (test 254 K/CU MM 150-450 code = 756) MEAN PLATELET VOLUME (BEAKER) 10.8 fL 9.4-12.3 (test code = 754) NUCLEATED RED BLOOD CELLS 0 /100 WBC 0-0 (BEAKER) (test code = 413) RAD, CHEST, 1 VIEW, NON [id number] 03:03:00Reason for exam:->Pre-Op ScreeningShould this be performed at the bedside?->YesFINAL REPORT Chest one view. Clinical history: Pre-Op Screening Comparison: N one. Technique: A single frontal view of the chest was obtained. Findings: The heart is normal in size. The aorta is atherosclerotic. There is no focal pulmonary consolidation, pleural effusion or pneumothorax. There is no pulmonary edema. The bony thorax is unremarkable. Impression:Atherosclerotic aorta.No focal pulmonary consolidation. Signed: Regis Mishra MDReport Verified Date/Time: 07/28/2018 03:03:38 Reading Location: [address] Body Reading Room TROPONIN [id number] 00:51:00 Test Item Value Reference Range Interpretation Comments TROPONIN I (BEAKER) (test code = 397) < ng/mL 0.00-0.03 Troponin I (TnI) levels must be interpreted in the context of the presenting symptoms and the clinical findings. Elevated TnI levels indicate myocardial damage, but are not specific for ischemic heart disease. Elevated TnI levels are seen in patients with other cardiac conditions (including myocarditis and congestive heart failure), and slight TnI elevations occur in patients with other conditions, including sepsis, renal failure, acidosis, acute neurological disease, and persistent tachyarrhythmia.LIPID [id number] 00:48:00 Test Item Value Reference Range Interpretation Comments TRIGLYCERIDES (BEAKER) (test code = 103 mg/dL 540) CHOLESTEROL (BEAKER) (test code = 168 mg/dL 631) HDL CHOLESTEROL (BEAKER) (test code 57 mg/dL = 976) LDL CHOLESTEROL CALCULATED (BEAKER) 90 mg/dL (test code = 633) Triglyceride Reference Range: Low Risk <150 Borderline 150-199 High Risk 200-499 Very High Risk >=500Cholesterol Reference Range: Low Risk <200 Borderline 200-239 High Risk >240HDL Cholesterol Reference Range: Low Risk >=60 High Risk <40LDL Cholesterol Reference Range: Optimal <100 Near Optimal 100-129 Borderline 130-159 High 160-189 Very High >=[id number] 23:25:00 Test Item Value Reference Range Interpretation Comments MAGNESIUM (BEAKER) (test code = 1.8 mg/dL 1.6-2.6 627) TROPONIN [id number] 21:53:00 Test Item Value Reference Range Interpretation Comments TROPONIN I (BEAKER) (test code = 0.01 ng/mL 0.00-0.03 397) Troponin I (TnI) levels must be interpreted in the context of the presenting symptoms and the clinical findings. Elevated TnI levels indicate myocardial damage, but are not specific for ischemic heart disease. Elevated TnI levels are seen in patients with other cardiac conditions (including myocarditis and congestive heart failure), and slight TnI elevations occur in patients with other conditions, including sepsis, renal failure, acidosis, acute neurological disease, and persistent tachyarrhythmia.HEPATIC FUNCTION [id number] 21:46:00 Test Item Value Reference Range Interpretation Comments TOTAL PROTEIN (BEAKER) (test code = 6.5 gm/dL 6.0-8.3 770) ALBUMIN (BEAKER) (test code = 1145) 3.9 g/dL 3.5-5.0 BILIRUBIN TOTAL (BEAKER) (test code 0.3 mg/dL 0.2-1.2 = 377) BILIRUBIN DIRECT (BEAKER) (test 0.2 mg/dL 0.1-0.5 code = 706) ALKALINE PHOSPHATASE (BEAKER) (test 64 U/L 40-150 code = 346) AST (SGOT) (BEAKER) (test code = 23 U/L 5-34 353) ALT (SGPT) (BEAKER) (test code = 16 U/L 6-55 347) BASIC METABOLIC [id number] 21:46:00 Test Item Value Reference Range Interpretation Comments SODIUM (BEAKER) 139 meq/L 136-145 (test code = 381) POTASSIUM (BEAKER) 3.8 meq/L 3.5-5.1 (test code = 379) CHLORIDE (BEAKER) 106 meq/L 98-107 (test code = 382) CO2 (BEAKER) (test 25 meq/L 22-29 code = 355) BLOOD UREA NITROGEN 19 mg/dL 7-21 (BEAKER) (test code = 354) CREATININE (BEAKER) 1.00 mg/dL 0.57-1.25 (test code = 358) GLUCOSE RANDOM 142 mg/dL 70-105 H (BEAKER) (test code = 652) CALCIUM (BEAKER) 9.5 mg/dL 8.4-10.2 (test code = 697) EGFR (BEAKER) (test 55 mL/min/1.73 ESTIMA VESNA GFR IS code = 1092) sq m NOT ACCURATE CREATININE CLEARANCE IN PREDICTING GLOMERULAR FILTRATION RATE . ESTIMATED GFR I S NOT APPLICABLE FOR DIALYSIS PATIEN TS. PROTHROMBIN [id number] 21:36:00 Test Item Value Reference Range Interpretation Comments PROTIME (BEAKER) (test code = 14.1 seconds 11.7-14.7 759) INR (BEAKER) (test code = 370) 1.1 <=5.9 RECOMMENDED COUMADIN/WARFARIN INR THERAPY RANGESSTANDARD DOSE: 2.0 - 3.0 Includes: PROPHYLAXIS forvenous thrombosis, systemic embolization; TREATMENT for venous thrombosis and/or pulmonary embolus.HIGH RISK: Target INR is 2.5-3.5 for patients with mechanical heart valves.[id number] 21:35:00 Test Item Value Reference Range Interpretation Comments PARTIAL THROMBOPLASTIN TIME 32.5 seconds 22.5-36.0 (BEAKER) (test code = 760) Prior to initiating heparinCBC (HEMOGRAM ONLY)2018-07-27 21:19:00 Test Item Value Reference Range Interpretation Comments WHITE BLOOD CELL COUNT (BEAKER) 7.8 K/ L 3.5-10.5 (test code = 775) RED BLOOD CELL COUNT (BEAKER) 4.21 M/ L 3.93-5.22 (test code = 761) HEMOGLOBIN (BEAKER) (test code = 13.2 GM/DL 11.2-15.7 410) HEMATOCRIT (BEAKER) (test code = 39.4 % 34.1-44.9 411) MEAN CORPUSCULAR VOLUME (BEAKER) 93.6 fL 79.4-94.8 (test code = 753) MEAN CORPUSCULAR HEMOGLOBIN 31.4 pg 25.6-32.2 (BEAKER) (test code = 751) MEAN CORPUSCULAR HEMOGLOBIN CONC 33.5 GM/DL 32.2-35.5 (BEAKER) (test code = 752) RED CELL DISTRIBUTION WIDTH 13.2 % 11.7-14.4 (BEAKER) (test code = 412) PLATELET COUNT (BEAKER) (test 259 K/CU MM 150-450 code = 756) MEAN PLATELET VOLUME (BEAKER) 10.6 fL 9.4-12.3 (test code = 754) NUCLEATED RED BLOOD CELLS 0 /100 WBC 0-0 (BEAKER) (test code = 413)
[2019-09-30] MEDS ORDERED: HEPA 1000U/500MLS 1,000 UNIT/500 ML BAG IV ONE (06:39)
[2019-09-30] MEDS ORDERED: LIDOCAINE 1% 20 ML MDV ONE (06:39)
[2019-09-30] MEDS ORDERED: NA CHLORIDE 0.9% 500 ML ONE (07:12)
[2019-09-30] MEDS ORDERED: HEPARIN 5000 UNIT/ML 1 ML VIAL ONE (07:39)
[2019-09-30] MEDS ORDERED: MIDAZOLAM HCL 2 MG/2 ML INJ ONE ×2 (07:39→07:48)
[2019-09-30] MEDS ORDERED: FENTANYL CITR 100 MCG/2 ML ONE (07:39)
[2019-09-30] MEDS ORDERED: ATROPINE SULF 1 MG/10 ML SYR IV ONE (07:39)
[2019-09-30 10:03] VITALS: BP 130/69; TEMP 97.2; O2SAT 97
--- NOTE | 2019-10-01 21:58 | OP ---
Date of Procedure: 09/30/2019 Surgeon: Shamar Green MD Real Estate Director: Kale Salazar Procedure: Selective bilateral carotid angiogram. Indication: Cerebrovascular disease with positive carotid Doppler. Description Of Procedure: Ms. Diaz is a 68-year-old woman who had coronary artery bypass surgery in 2018. She was seen in my office recently, had a carotid bruit on the left side. Carotid Dopple r showed 80% to 99% stenosis. She was brought into the label maker today for selective bilateral caroti d angiogram. She was brought in as an outpatient, prepped and draped in the routine sterile fashion. Given Versed for sedation. A 6-Luxembourger sheath introduced in the right common femoral artery. Angio -Seal was used to close the case. Angiography there was normal. A 6-Luxembourger JR4 catheter was used to select the right common carotid artery. This was fairly normal. The right common carotid, right in ternal carotid, and right external carotid artery were normal. The left carotid was cannulated with a 3DRC catheter. The left common carotid artery was normal. She had a 99% stenosis of her left exte rnal carotid. She had an 80% to 90% stenosis of her left internal carotid with an ulcerated plaque. Patient tolerated the procedure well. Complications: None. Blood Loss: 5 cc. Final Diagnosis: Severe stenosis of the left internal carotid artery. Anesthesia: Total conscious sedation was 30 minutes. Plan: Plan is for carotid endarterectomy by Dr. Coley, which will be arranged as an outpatient in the very near future. Patient will remain at bedrest for 2 hours and she will go home today. I will arrange followup myself with Dr. Coley. The case was discussed with the patient and her . FLOYD/AIDA Voice ID: [id number] Report ID: [id number]
== END 2019-09-30 10:15 | disposition home or self-care (01) ==
LOC: CCL 06:17
DX: I65.22 Occlusion and stenosis of left carotid artery (principal); I25.110 Atherosclerotic heart disease of native coronary artery with unstable angina pectoris; I10 Essential (primary) hypertension; R06.09 Other forms of dyspnea; E78.5 Hyperlipidemia, unspecified; F17.210 Nicotine dependence, cigarettes, uncomplicated; Z95.1 Presence of aortocoronary bypass graft; Z88.0 Allergy status to penicillin; Z88.6 Allergy status to analgesic agent; Z88.3 Allergy status to other anti-infective agents
CPT/HCPCS: 85025; 80048; 36415; 85610; 85730; 71046; 36222; C1893; C1760; J2250; J3010; J7040; J1644

== ENCOUNTER 2020-05-04 12:20 | Emergency (ER) | payer OTHER ==
--- OUTSIDE RECORDS SUMMARY | 2020-05-04 12:26 | XMS REPORT | Clinical Summary ---
:1950 Author Organization [facility] Address [address] [place] [address] Care Team Providers Name Role Phone Pcp Primary Care Provider Unavailable Andrew Nguyen Unavailable Allergies Active Allergy Reactions Severity Noted Date Comments Codeine Anaphylaxis High 07/27/2018 Levofloxacin Nausea And Vomiting 07/27/2018 Penicillins Anaphylaxis High 07/27/2018 Medications Medication Sig Dispensed Refills Start Date End Date Status FLUoxetine Take 20 mg by 0 Activ e (PROZAC) 20 MG mouth daily. tablet metoprolol Take 12.5 mg 0 Active tartrate by mouth 2 (LOPRESSOR) 25 MG (two) times tablet daily. aspirin 81 MG EC Take 81 mg by 0 Active tablet mouth daily. clopidogreL Take 75 mg by 0 Acti ve (PLAVIX) 75 mg mouth daily. tablet atorvastatin Take 20 mg by 0 Act tho (LIPITOR) 20 MG mouth daily. tablet multivit-mins Take by mouth 0 Ac tive no.63/iron/folic daily. (M-VIT ORAL) calcium Take 1 tablet 0 Active carbonate-vitamin by mouth D3 (OSCAL-D) 500 daily. mg(1,250mg) -200 unit per tablet atorvastatin Take 1 tablet 30 tablet 11 08/04/2018 Ex pired (LIPITOR) 40 MG (40 mg total) 0 tablet by mouth daily. aspirin 81 MG EC Take 1 tablet 30 tablet 11 08/04/2018 08/04/19 2 tablet (81 mg total) 0 by mouth daily. metoprolol Take 0.5 30 tablet 11 08/04/2018 (LOPRESSOR) 25 MG tablets (12.5 0 tablet mg total) by mouth 2 (two) times daily. vit A/vit C/vit Take by mouth 0 Discontinued (Med E/zinc/copper daily. 0 Histor y: Patient (ICAPS AREDS ORAL) R eported Med no longer davis ing) traMADoL (ULTRAM) Take 1 tablet 30 tablet 0 10/05/2019 02 50 mg tablet (50 mg total) 0 by mouth every 6 (six) hours as needed for Pain for up to 10 days. Max Daily Amount: 200 mg polyethylene Take 17 g by 255 g 0 10/05/2019 Exp ired glycol (GLYCOLAX) mouth daily 0 17 gram/dose for 3 days. powder Active Problems Problem Noted Date Carotid artery plaque, left 10/04/2019 S/P L CEA by Dr. Crawford on 10/04/19 10/04/2019 S/P CABG (coronary artery bypass graft) 07/29/2018 Acute blood loss anemia 07/29/2018 Respiratory insufficiency 07/29/2018 CAD (coronary artery disease) 07/27/2018 Encounters Date Type Specialty Care Team Description 10/18/2019 Office Visit Cardiology Ty, Post-operative state JHONY Vaughan 10/04/2019 Surgery Ty, ENDARTERECTOMY, GALLARDO JOE Vaughan MD 10/04/2019 Anesthesia Event Creo, MD Jt Santos Stephen Andrew, AA 10/04/2019 - Hospital Encounter Cardiology Ty, 10/05/2019 Gary Bustamante MD 10/01/2019 Office Visit Cardiology Ty, Preop testing Gary Bustamante, (Primary Dx) Vasyl Chacko RN 10/01/2019 Travel 09/30/2019 Hospital Encounter Pre-Admission Testing 09/30/2019 Travel after 05/04/2019 Immunizations Name Administration Dates Next Due Pneumococcal Conjugate (Prevnar) 13-Valent 10/05/2019 Family History Medical History Relation Name Comments [...] Assigned at Date Recorded Not on file Last Filed Vital Signs Vital Sign Reading Time Taken Comments Blood Pressure 112/59 10/18/2019 10:14 AM CDT Pulse 48 10/18/2019 10:14 AM CDT Temperature 36.7 C (98.1 F) 10/18/2019 10:14 AM CDT Respiratory Rate 14 10/18/2019 10:14 AM CDT Oxygen Saturation 100% 10/18/2019 10:14 AM CDT Inhaled Oxygen Concentration - - Weight 65.8 kg (145 lb) 10/18/2019 10:14 AM CDT Height 157.5 cm (5' 2") 10/18/2019 10:14 AM CDT Body Mass Index 26.52 10/18/2019 10:14 AM CDT Plan of Treatment Health Maintenance Due Date Last Done Comments BREAST CANCER SCREENING 1950 COLON CANCER SCREENING COLONOSCOPY 1950 MEDICARE ANNUAL WELLNESS (YEAR 2 11/16/2016 or FIRST YEAR if no IPPE) INFLUENZA VACCINE (#1) 2020 02/15/2019, 03/17/2018, 03/17/2016 PNEUMOCOCCAL 65+ YRS Completed 10/05/2019, 04/18/2019, 03/17/2018, Additional history exists Implants Implanted Type Area Badger Distiller Operator Device Shelf Model / Identifier Expiration Serial / Lot Date Ankita Hemshld Dbl Rashad 0.3x3.0in [id number] - [id number] IMPLA NTS Left: GETINGE 03/17/2024 [id number] / Implanted: Qty: 1 on 10/04/2019 by Gary Fields MD at [facility] Neck IND:MAQUET:CV [id number] / [id number] Description:KNITTED DOUBLE VELOUR CARDIO VASCULAR FABRIC Procedures Procedure Name Priority Date/Time Associated Comments Diagnosis REPORT OF PROCEDURE - 10/14/2019 1:10 ENDOSCOPY SCAN PM CDT RHYTHM STRIP - SCAN 10/06/2019 2:41 PM CDT CBC W/PLT COUNT & Routine 10/05/2019 3:39 Result s for this AUTO DIFFERENTIAL AM CDT procedure are in the results section. BASIC METABOLIC PANEL Routine 10/05/2019 3:39 Re sults for this (7) AM CDT procedure are i n the results section. CBC W/PLT COUNT & Routine 10/05/2019 3:39 Result s for this AUTO DIFFERENTIAL AM CDT procedure are in the results section. TISSUE EXAM AP Routine 10/04/2019 8:59 Results for this AM CDT procedure are i n the results section. ENDARTERECTOMY,CAROTI 10/04/2019 7:05 Carotid stenosi s, D AM CDT left Special Needs (ICU BED NEEDED) CBC W/PLT COUNT & AUTO STAT 10/04/2019 6:03 AM Results for this DIFFERENTIAL CDT procedure are i n the results section. CBC W/PLT COUNT & AUTO STAT 10/04/2019 6:03 AM Results for this DIFFERENTIAL CDT procedure are i n the results section. APTT STAT 10/04/2019 6:02 AM Results for this CDT procedure are i n the results section. PROTHROMBIN TIME/INR STAT 10/04/2019 6:02 AM Results for this CDT procedure are i n the results section. BASIC METABOLIC PANEL STAT 10/04/2019 6:02 AM Results for this (7) CDT procedure are i n the results section. TRANSFUSION SERVICE 10/02/2019 5:52 PM Preop testing REPORT - SCAN CDT SARS-COV2/RT-PCR ([facility] Routine 10/01/2019 10:34 AM Preop testi ng Results for this & REF LABS) CDT procedure are i n the results section. TYPE AND SCREEN, Routine 10/01/2019 10:31 AM Preop testing Res ults for this AUTOMATED CDT procedure are i n the results section. after 05/04/2019 Results EKG-SCANNED (10/14/2019 1:10 PM CDT) Narrative Performed At This result has an attachment that is no t available. RHYTHM STRIP - SCAN (10/06/2019 2:41 PM CDT) Narrative Performed At This result has an attachment that is no t available. CBC with platelet count + automated diff (10/05/2019 3:39 AM CDT)Only the most recent of2 resultswithin the time period is included. Pathologist Sig nature WBC 13.9 (H) 3.5 - 10.5 [facility] K/L [facility] RBC 3.97 3.93 - 5.22 [facility] Hemoglobin 12.7 11.2 - 15.7 [facility] GM/DL [facility] Hematocrit 37.8 34.1 - 44.9 % [facility] MCV 95.2 (H) 79.4 - 94.8 fL [facility] MCH 32.0 25.6 - 32.2 pg [facility] MCHC 33.6 32.2 - 35.5 [facility] GM/DL [facility] RDW 13.0 11.7 - 14.4 % [facility] Platelets 199 150 - 450 K/CU [facility] MPV 11.6 9.4 - 12.3 fL [facility] nRBC 0 0 - 0 /100 WBC [facility] % Neutros 81 % [facility] % Lymphs 12 % [facility] % Monos 6 % [facility] % Eos 0 % [facility] % Baso 0 % [facility] # Neutros 11.27 (H) 1.56 - 6.13 [facility] # Lymphs 1.65 1.18 - 3.74 [facility] # Monos 0.88 (H) 0.24 - 0.36 [facility] # Eos 0.00 (L) 0.04 - 0.36 [facility] # Baso 0.03 0.01 - 0.08 [facility] Immature 1 0 - 1 % [facility] Granulocytes-Relativ [facility] Specimen Blood Performing Organization Address City/State/Zipcode Phone Number [facility] [address] [place] [address] CENTER Basic Metabolic Panel (10/05/2019 3:39 AM CDT)Only the most recent of2 results within the time period is included. Sodium 137 136 - 145 meq/L [facility] Potassium 4.8Comment: Specimen 3.5 - 5.1 meq/L [facility] slightly hemolyzed [facility] Chloride 107 98 - 107 meq/L [facility] CO2 22 22 - 29 meq/L [facility] BUN 17 7 - 21 mg/dL [facility] Creatinine 1.06Comment: 0.57 - 1.25 [facility] Specimen slightly mg/dL [facility] hemolyzed [place] Glucose 104 70 - 105 mg/dL [facility] Calcium 9.5 8.4 - 10.2 [facility] mg/dL [facility] EGFR 52Comment: ESTIMATED mL/min/1.73 sq [facility] GFR IS NOT m [facility] ACCURATE [place] CREATININE CLEARANCE IN PREDICTING GLOMERULAR FILTRATION RATE. ESTIMATED GFR IS NOT APPLICABLE FOR DIALYSIS PATIENTS. Specimen Blood Narrative Performed At Director Of Market Analysis ID - TIP Posey [facility] Performing Organization Address City/State/Zipcode Phone Number [facility] [address] [place] [address] [place] Tissue Exam (10/04/2019 8:59 AM CDT) Case Report Surgical Pathology Report Case: [id number] [facility] Authorizing Provider: Gary Romo, Collected: 10/04/2019 08:59 AM [facility] Ordering Location: [facility] Shanice [facility] Received: 10/04/2019 10:13 AM PERIOPERATIVE SERVICES Pathologist: Augusto Silva MD Specimen: Plaque, CAROT ID PLAQUE DIAGNOSIS ARTERY, LEFT CAROTID, ENDARTERECTOMY: [facility] Electronically CALCIFIC ATHEROSCLEROTIC PLAQUE WITH INTRAPLAQUE HEMOR [facility] signed by Augusto Silva Signing Pathologist Direct Phone Line: [phone] [facility] MD Fabio on 10/23/2019 at 12:51 PM CPT Code(s) 58667; 80928 [facility] CLINICAL HISTORY Preop diagnosis: JULIANNA KWON Carotid stenosis, left [facility] SPECIMEN SOURCE Plaque [facility] GROSS DESCRIPTION Received in formalin [facility] labeled with the [facility] patient's name, MEDICAL CENTER accession number and "carotid plaque" is a 2.5 cm in length x 0.5 cm in diameter baires-yellow bifurcated, tubular piece of focally calcified plaque. Parts Assembler sections are submitted in A1 following decalcification. PA/pl MICROSCOPIC Performed [facility] Specimen Tissue - Plaque (morphologic abnormality ) Performing Organization Address [facility] Phone Number [address] [phone] [place] aPTT (10/04/2019 6:02 AM CDT) Pathologist Sig nature PTT 30.2 22.5 - 36.0 seconds [facility] Specimen Blood Performing Organization Address [facility] Phone Number [address] [address] [place] Prothrombin time/INR (10/04/2019 6:02 AM CDT) Pathologist Sig nature Protime 14.4 (H) 11.9 - 14.2 seconds [facility] INR 1.2 <=5.9 [facility] Specimen Blood Narrative Performed At Effective 10/13/2018: PT Reference Range [facility] Change New: 11.9-14.2 Previous: 11.7-14.7 RECOMMENDED COUMADIN/WARFARIN INR THERAPY RANGES STANDARD DOSE: 2.0-3.0 Includes: PROPHYLAXIS for venous thrombosis, systemic embolization; TREATMENT for venous thrombosis and/or pulmonary embolus. HIGH RISK: Target INR is 2.5-3.5 for patients wiht mechanical heart valves. Performing Organization Address [facility] Phone Number [address] [place] [address] CENTER TRANSFUSION SERVICE REPORT - SCAN (10/02/2019 5:52 PM CDT) Narrative Performed At This result has an attachment that is no t available. SARS-CoV2/RT-PCR (Asymptomatic ONLY) (10/01/2019 10:34 AM CDT) SARS-COV2/RT-PCR Negative Not Detected, [facility] Negative NON-INTERFACED REFERENCE LABS SARS-COV-2 CPL [facility] PERFORMING LAB NON-INTERFACED REFERENCE LABS Specimen Other - Nasopharyngeal wall structure (b dwaine structure) Performing Organization Address [facility] Phone Number [facility] NON-INTERFACED REFERENCE LABS Type and screen, automated (10/01/2019 10:31 AM CDT) Pathologist Sig nature ABO/RH AUTOMATED O POSITIVE [facility] (BEAKER) [facility] Ab Scrn NEGATIVE [facility] Specimen Blood Performing Organization Address City/[facility] Phone Number [address] [address] after 05/04/2019 Insurance Payer Benefit Plan / Subscriber ID Effective Dates Phone Addre ss Type Group MEDICARE MEDICARE A B [id number] 2015-Present Medicare MCR GENERIC MEDICARE [id number] 2016-Present Medigap SUPPLEMENT/GEORGE SUPPLEMENT VIDUAL Advance Directives For more information, please contact: [phone] Type Date Recorded Patient Parts Assembler Explanati on Advance Directives and Living 10/01/2019 12:00 AM Will Power of Blood Bank Manager 10/01/2019 12:00 AM Code Status Date Activated Date Inactivated Comments Full Code 10/04/2019 5:37 AM 10/05/2019 5:00 PM This code status was determined by: Patient Full Code 07/27/2018 10:10 PM 08/04/2018 3:43 PM This code status was determined by: Patient Full Code 07/27/2018 8:48 PM 07/27/2018 10:10 PM This code status was determined by: Patient
--- OUTSIDE RECORDS SUMMARY | 2020-05-04 12:26 | XMS REPORT | Clinical Summary ---
:1950 Author Organization [facility] Address [address] [place] [address] Care Team Providers Name Role Phone Olga [...] 0 Active 20 MG tablet mouth daily. Active Problems Problem Noted Date Seasonal allergic rhinitis due to pollen 03/14/2016 Lung nodule < 6cm on CT 02/13/2016 Endobronchial mass 02/13/2016 Chronic obstructive pulmonary disease 02/13/2016 Tobacco abuse 02/13/2016 RODRIGUES (dyspnea on exertion) Immunizations Name Administration Dates Next Due FLUZONE HIGH-DOSE PF 03/17/2018 FLUZONE QUAD PF 03/17/2016 Pneumococcal Conjugate 13-Valent 03/17/2016 Pneumococcal Polysaccharide 03/17/2018 Surgical History Surgery Date Site/Laterality Comments BRONCHOSCOPY HEMORRHOIDECTOMY BRONCHOSCOPY 10/01/2017 N/A Procedure: [facility] H[facility]COPY; Surgeon: Syed Magdaleno MD; Lo cation: [facility] Endoscopy; Service: Pulmona ry; Laterality: N/A; BRONCHOSCOPY 10/13/2017 Medical History Medical History Date Comments Lung nodule Depression COPD (chronic obstructive pulmonary disease) (HCC) Family History Medical History Relation Name Comments [...] Not on file Last Filed Vital Signs Not on file Plan of Treatment Health Maintenance Due Date Last Done Comments COVID-19 VACCINE (#1) 1966 BREAST CANCER SCREENING 2000 COLONOSCOPY SCREENING 2000 SHINGLES VACCINES (#1) 2000 INFLUENZA VACCINE 12/17/2019 03/17/2018, 03/17/2016 65+ PNEUMOCOCCAL VACCINE Completed 03/17/2018, 03/17/2016 Results Not on fileafter 05/04/2019 Insurance Payer Benefit Plan / Subscriber ID Effective Phone Address T ype Group Dates MEDICARE MEDICARE PART A [id number] 2015-[place], [place] Medicare AND B ent COMMERCIAL MISC MISC COMMERCIAL [id number] 2016-[facility] Commercial ent Advance Directives For more information, please contact: [phone] Type Date Recorded Patient Software Configuration Specialist Explanati on Advance Directives, Living Will and Medical Power of Cinema Operator
--- OUTSIDE RECORDS SUMMARY | 2020-05-04 12:28 | XMS REPORT | Continuity of Care Document ---
:1950 Author Organization [facility] t Address [address] [place] [address] Dr. [address] [place] [address] Care Team Providers Name Role Phone Olivia [facility] Primary Care Physician Polly Crawford MD Attending Clinician POLLY CRAWFORD Attending Clinician Unavailable Wes Dinero MD Attending Clinician Gege Villegas Attending Clinician David Alexander RN Attending Clinician Unavailable CARLOTA HERRERA Attending Clinician Unavailable POLLY CRAWFORD Admitting Clinician Unavailable CARLOTA HERRERA Admitting Clinician Unavailable Payers Payer Name Policy Type Policy Effective Date Expiration Date Sour ce Number MEDICAREMEDICARE A [id number] 2015 JULIANNA Porter [id number] 2015-P 00:00:00 - Medical resentMedicare Center [facility] [id number] JULIANNA Good SUPPLEMENT/INDIVIDUALG 00:00:00 - Medical ENERIC MEDICARE Center [id number]/ 05/2016-PresentMedigap Problems Condition Condition Condition Status Onset Resolution Last Treating Co mments Source Name Details Category Date Date Treatment Clinician Date Carotid Carotid Disease Active JULIANNA Garay artery artery 10-03 [place] - plaque, plaque, 00:00: Medical left left 00 Center S/P L CEA S/P L CEA Disease Active JULIANNA Garay by by 10-03 [place] Crawford on Ty on 00:00: Me dical 10/04/19 10/04/19 00 Center History of History of Problem Active M [place] carotid Carotid 5-18 da endarterec Endarterec 00:00: Ep iscop rosalia rosalia 00 al [facility] Osteopenia Osteopenia Problem Active 2018-05 at[facility]or 2-14 da 00:00: [facility] 00 [facility] S/P CABG S/P CABG Disease [facility] (coronary (coronary 3-14 [facility] - artery artery 00:00: Medical bypass bypass 00 Center graft) graft) Acute Acute Disease Active [facility] blood loss blood loss 3-14 Martha kes - anemia anemia 00:00: Medical 00 Center Respirator Respirator Disease Active [facility] y y 3-14 [facility] - insufficie insufficie 00:00: Me dical ncy ncy 00 Center 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 3-13 da bypass Bypass 00:00: [facility] grafts x 2 Grafts X 2 00 al Health Outre[facility] Program CAD CAD Disease Active [facility] (coronary (coronary 3-12 [facility] - artery artery 00:00: Medical disease) disease) 00 Center Depressive Depressive Problem Active M [facility] disorder Disorder 1-04 da 00:00: [facility] Vertigo Vertigo Problem Active [place] 1-04 da 00:00: [facility] 00 [facility] Hyperlipid Hyperlipid Problem Active atagor emia emia 927 da 00:00: [facility] 00 [facility] Imaging Imaging Problem Active [place] result Result 1-13 da abnormal Abnormal 00:00: Episco p 00 al [facility] Outre[facility] Program Seasonal Seasonal Disease Active 2015-05 [place] allergic allergic 0 Method i rhinitis rhinitis 00:00: st due to due to 00 pollen pollen Lung Lung Disease Active [place] nodule < nodule < 02-12 Method i 6cm on CT 6cm on CT 00:00: st 00 Endobronch Endobronch Disease Active aaron ial mass ial mass 02-12 Method i 00:00: st 00 Chronic Chronic Disease Active [place] obstructiv obstructiv 9-28 Me thodi e e 00:00: st pulmonary pulmonary 00 disease disease Tobacco Tobacco Disease Active [place] abuse abuse 02-12 Methodi 00:00: st 00 RODRIGUES RODRIGUES Disease Active [place] (dyspnea (dyspnea Method i on on st exertion) exertion) Allergies, Adverse Reactions, Alerts Allergy Allergy Status Severity Reaction(s) Onset Inactive Treating Comm ents Source Name Type Date Date Clinician Codeine Propensi Active Anaphylaxis [facility] ty to 3-12 [facility] - adverse 00:00: Medical reaction 00 Center s Levoflox Propensi Active Nausea And [facility] I [facility] acin ty to Vomiting 07-27 [facility] - adverse 00:00: Medical reaction 00 Center s Penicill Propensi Active Anaphylaxis C [facility] ins ty to 07-27 [facility] - adverse 00:00: Medical reaction 00 Center s Codeine Propensi Active GI [place] ty to Intolerance 02-12 Metho di adverse 00:00: st reaction 00 s to drug Penicill Propensi Active GI [facility] Unitto n ins ty to Intolerance 02-12 Metho [...] Date Stop Date Source Natural brother Cancer [place] M ethodist Natural brother Throat cancer [place] Natural brother Cancer [facility] Natural father Heart failure [place] Natural father Heart disease [facility] Natural [facility] Natural mother Heart disease [facility] Natural daughter No Known Problem CH [facility] Natural son No Known Problem [facility] Social History Social Habit Start Date Stop Date Quantity Comments Source History SDOH [facility] - Alcohol Std Drinks Medica l Center History SDOH [facility] - Alcohol Binge Medical [address] Sex Assigned At [facility] Cigarettes smoked 2019-10-18 2019-10-18 [facility] - current (pack per 00:00:00 00:00:00 Medical Center day) - Reported Cigarette 2019-10-18 2019-10-[address] [facility] - pack-years 00:00:00 00:00:00 [facility] Tobacco use and 2019-10-18 2019-10-[address] Martha kes - exposure 00:00:00 00:00:00 [facility] Alcohol intake 2019-10-18 2019-10-[address] [facility] es - 00:00:00 00:00:00 non-drinker of Medical Ce nter alcohol (finding) History SDOH 2018-07-27 2018-07-[address] [facility] - Alcohol Frequency 00:00:00 00:00:00 [facility] History of tobacco 2018-07-23 Current smoker [facility] - use 00[facility]00:00 [facility] Smoking Status Start Date Stop Date Source Former smoker 2019-10-18 00:00:00 2019-10-18 00:00:[address] [facility] Current every day 2018-03-17 00:00:00 [facility] thodi smoker Medications Ordered Filled Start Stop Current Ordering Indication Dosage Frequency Signature Comments Components Source Medication Medication Date Date Medication? Clinician (SIG) Name Name vit A/vit 2019- No QD Take by [facility] C/vit 10-17 mouth [facility] - E/zinc/ras 10:17: 00:00 daily. Med ical er (ICAPS 02 :00 [place] AREDS ORAL) FLUoxetine Yes 20mg QD Take [address] (PROZAC) 20 - by mouth Luke s - MG tablet 10:15: daily. Medica [address] metoprolol 2019- Yes 12.5mg Q.5D Take 12.[address] tartrate 6-02 mg by [facility]ukes - (LOPRESSOR) 10:15: mouth 2 Med ical 25 MG 46 (two) Center tablet times daily. aspirin 81 2019-0 Yes 81mg QD Take [address] MG EC -02 by mouth [facility] - tablet 10:15: daily. [address] clopidogreL 2019-0 Yes 75mg QD Take [address] (PLAVIX) 75 -02 by mouth Luke s - mg tablet 10:15: daily. Medica [address] atorvastati Yes 20mg QD Take [address] n (LIPITOR) -02 by mouth Luke s - 20 MG 10:15: daily. Medical tablet 46 Center multivit-mi Yes QD Take by [facility] ns 6-02 mouth [facility] - no.63/iron/ 10:15: daily. Medi clarita folic 46 Center (M-VIT ORAL) calcium Yes 1{tbl} QD Take [address] carbonate-v 6-02 tablet by Gabriel es - itamin D3 10:15: mouth Medical (OSCAL-D) 46 daily. Center 500 mg(1,250mg) -200 unit per tablet traMADoL 2019- No 50mg Take [address] (ULTRAM) 50 5-20 05-30 tablet (50 L ukes - mg tablet 00:00: 23:59 mg total) Me dical 00 :00 by mouth Center every 6 (six) hours as needed for Pain for up to 10 days. Max Daily Amount: 200 mg polyethylen 2019- No 17g QD Take [address] e glycol 5-20 -23 by mouth [facility] - (GLYCOLAX) 00:00: 23:59 daily for M edical 17 00 :00 3 days. Center gram/dose powder atorvastati 2019- No 40mg QD Take [address] n (LIPITOR) 3-20 03-19 tablet (40 L ukes - 40 MG 00:00: 23:59 mg total) Medica l tablet 00 :00 by mouth Center daily. aspirin 81 2019- No 81mg QD Take [address] MG EC 3-20 -19 tablet (81 [facility] - tablet 00:00: 23:59 mg total) Medic al 00 :00 by mouth Center daily. metoprolol 2019- No 12.5mg Q.5D Take 0.[address] (LOPRESSOR) 3-20 03-19 tablets Luke s - 25 MG 00:00: 23:59 (12.5 mg Medical tablet 00 :00 total) by Center mouth 2 (two) times daily. FLUoxetine 2017-05 Yes 20mg QD Take 20 mg [place] (PROzac) 20 0-31 by mouth Meth serg MG capsule 10:01: daily. st 44 atorvastati 2017-05 Yes 20mg QD Take 20 mg Price n (LIPITOR) 0-31 by mouth Meth serg 20 MG 10:01: daily. st tablet 44 aspirin 81 aspirin 81 No 1 Q1D aspirin 81 [place] mg mg mg da tablet,ciara tablet,ciara tablet,del Episc[facility] yed release yed release ayed a l Take 1 Take 1 release Health tablet tablet Take 1 Outreac every day every day tablet h by oral by oral every day Prog corie route. route. by oral route. atorvastati atorvastati No 1 Q1D atorvastat [place] [...] Episcop tab bid. tab bid. tab bid. la Health Outreac h Program Multi Multi No Multi [place] Vitamin One Vitamin One Vitamin da tab daily. tab daily. One tab [facility] daily. la [facility] Immunizations Ordered Immunization Filled Immunization Date Status Commen ts Source Name Name Pneumococcal 2019-10-[address] [facility] - Conjugate (Prevnar) 00:00:00 Medic la Center 13-Valent pneumococcal pneumococcal 2019-04-18 Completed [place] polysaccharide PPV23 polysaccharide PPV23 09:47:59 [facility] influenza, influenza, 2019-02-15 Completed [place] injectable, injectable, 00:00:00 [facility] quadrivalent quadrivalent Health Out reach Program FLUZONE HIGH-DOSE PF 2018-03-17 Completed [place] 00:00:00 [place] Pneumococcal 2018-03-17 Completed [place] Polysaccharide 00:00:00 [place] pneumococcal pneumococcal 2016-09-09 Completed [place] conjugate PCV 13 conjugate PCV 13 00:00:00 [facility] Outreac h Program FLUZONE QUAD PF 2016-03-17 Completed [place] 00:00:00 [place] Pneumococcal 2016-03-17 Completed [place] Conjugate 13-Valent 00:00:00 [place] dist Tdap Tdap 2014-11-29 Completed [place] 00:00:00 [facility] Vital Signs Vital Name Observation Time Observation Value Comments Source BP Diastolic 2019-10-17 00:00:00 69 mm[Hg] [place] [facility] Height 2019-10-17 00:00:00 60 [in_i] [place] [facility] BMI (Body Mass 2019-10-17 00:00:00 28.3 kg/m2 [facility] proofer Index) [facility] BP Systolic 2019-10-17 00:00:00 103 mm[Hg] [place] [facility] Body Weight 2019-10-17 00:00:00 2320 [oz_av] [place] [facility] BP Diastolic 2019-04-18 00:00:00 80 mm[Hg] [place] [facility] Height 2019-04-18 00:00:00 60 [in_i] [place] [facility] BMI (Body Mass 2019-04-18 00:00:00 28.7 kg/m2 [facility] proofer Index) [facility] BP Systolic 2019-04-18 00:00:00 138 mm[Hg] [place] [facility] Body Weight 2019-04-18 00:00:00 147 [lb_av] [place] [facility] Systolic blood 2019-10-18 10:14:00 112 mm[Hg] [facility] Diastolic blood 2019-10-18 10:14:00 59 mm[Hg] [facility] Heart rate 2019-10-18 10:14:00 48 /min [facility] Body temperature 2019-10-18 10:14:00 36.72 Marizol [facility] Respiratory rate 2019-10-18 10:14:00 14 /min [facility] Body height 2019-10-18 10:14:00 157.5 cm [facility] Body weight 2019-10-18 10:14:00 65.772 kg [facility] BMI 2019-10-18 10:14:00 26.52 kg/m2 [facility] Oxygen saturation in 2019-10-18 10:14:00 100 /min [facility] - Arterial blood by Medical Ce nter Pulse oximetry Procedures Procedure Date / Time Performing Clinician Source Performed REPORT OF PROCEDURE - 2019-10-14 13:10:39 Provider, Default [facility] ENDOSCOPY SCAN [facility] RHYTHM STRIP - SCAN 2019-10-06 14:41:07 Provider, Default [facility] BASIC METABOLIC PANEL (7) 2019-10-05 03:39:00 Crystal Ortiz [facility] CBC W/PLT COUNT & AUTO 2019-10-05 03:39:00 Crystal Ortiz [facility] TISSUE EXAM 2019-10-04 08:59:00 Gary Crawford [facility] ENDARTERECTOMY,CAROTID 2019-10-04 07:05:[address] [facility] CBC W/PLT COUNT & AUTO 2019-10-04 06:03:00 Gary Crawford [facility] DIFFERENTIAL [facility] BASIC METABOLIC PANEL (7) 2019-10-04 06:02:00 Gary Crawford [facility] PROTHROMBIN TIME/INR 2019-10-04 06:02:00 [facility] APTT 2019-10-04 06:02:00 Gary Crawford [facility] Carotid Endarterectomy 2019-10-03 00:00:00 [facility] TRANSFUSION SERVICE 2019-10-02 17:52:00 Provider, Default [facility] - REPORT - SCAN Scanning [facility] SARS-COV2/RT-PCR (HS & 2019-10-01 10:34:00 Quang Nnuez [facility]I - REF LABS) [facility] TYPE AND SCREEN, 2019-10-01 10:31:00 Quang Nunez CHI s - AUTOMATED [facility] Endarterectomy 2019-09-30 00:00:00 [place] [facility] Screening for Malignant 2019-04-22 00:00:00 Pineda polly [facility] Neoplasm of Colon Health Outreac h Program MAMMO, screening, 2019-04-18 00:00:00 [place] [facility] digital, bilateral Health Outrea ch Program DXA BONE DENSITY, AXIAL 2019-04-18 00:00:00 Pineda polly [facility] Plan of Care Planned Activity Planned Date Details Comments Source Future Scheduled Test 2020-01-[address] [facility] - 00:[facility]:00 (#1) [code = [facility] Center INFLUENZA VACCINE (#1)] Future Scheduled Test 2019-12-17 INFLUENZA VACCINE [place] 00:00:00 [code = INFLUENZA VACCINE] Future Scheduled Test 2016-11-[address] [facility] - 00:00:00 WELLNESS (YEAR 2 or Medical Center FIRST YEAR if no IPPE) [code = MEDICARE ANNUAL WELLNESS (YEAR 2 or FIRST YEAR if no IPPE)] Future Scheduled Test 2000 BREAST CANCER [place] 00:00:00 SCREENING [code = BREAST CANCER SCREENING] Future Scheduled Test 2000 COLONOSCOPY [place] 00:00:00 SCREENING [code = COLONOSCOPY SCREENING] Future Scheduled Test 2000 SHINGLES VACCINES [place] 00:00:00 (#1) [code = SHINGLES VACCINES (#1)] Future Scheduled Test 1966 COVID-19 VACCINE [place] 00:00:00 (#1) [code = COVID-19 VACCINE (#1)] Future Scheduled Test 1950 [facility] malignant neoplasm Medical C enter of breast (procedure) [code = 013866522] Future Scheduled Test 1950 [facility] - [facility]:00 malignant neoplasm Medical C enter of colon (procedure) [code = 737000427] Future Appointment 2020-05-22 Alia Leal Lulu Baker 09:15:00 [address] [facility]; , [place], [place] Outreach Progra [phone] Encounters Start End Encounter Admission Attending Care Care Encounter Source Date/Time Date/Time Type Type Clinicians Facility Department ID 2019-10-17 2019-10-17 Alia Montes [place] - 1 [place] 00:00:00 00:00:00 Sammy Baker TREASURY MANAGER: 1700 [facility], [facility] [id number] h , Ph. Program 2019-04-18 2019-04-18 Alia NELSON [place] - [id number] 2 [place] 00:00:00 00:00:00 Sammy Baker TREASURY MANAGER: 1700 [facility] [address], [address] [phone] Progr am , Ph. Results Test Description Test Time Test Comments Results Result Comments Source Tissue Exam 2019-10-23 12:51:00 Test Item Value Reference Range Interpretation Comme nts Case Report (test code = 104) Surgical Pathology Report Case: [id number] Authorizing Provider: Gary Crawford, Collected: 10/04/2019 08:59 AM Ordering Location: [facility] Received: 10/04/2019 10:13 AM PERIOPERATIVE SERVICES Pathologist: Augusto Silva MD Specimen: Plaque, CAROTID PLAQUE DIAGNOSIS (test code = 3220) k3mufGNqQWTjz0inYZOgpBSaQcDnRrVuWfCsUo pc rGDgDYhwmyIgIQmor3CdA3CgPdNtKNtnfeVxAIBl QdsntrrcDDFiCXI5npKhMYPjCBzdAGIuQRoaEi7e wKGfbCpeSmUvGBBjb7nqrwMVjkeodBc8u7afRPVv YyJ5gCKgFZgpJ8fnmvIcdZTfSBIxZFp0eM43BSLj mP8jhNMpXKediwIxIYvzhgEupxXfBfx8WPSyM5yr BUEzPPRgW7FrJZ3zVTLnOea5ZGT5ZDH6jEcdn9Q1 fRSqaTQkzIgzLyDjItNkORFGk2IiYMv8wBvxL6Th SHCpLdR4jPJwAZTvIHjlHMUmUUZkahF0eX49OEax qyF8mEYul5Ogo62cm521pA4dxDTvKZS2DRHqUXDt hGHqMUYoSLE0HTDknYFpU5v9FsHnkJSuG1J0XvLd tLDsX8R7WiSdtNTwM1S6BqBymKNuZVTnrUHyDd9p pNWxnHFuzt8tlq29QEK7h6KwyMvnIDN9EFW1NlSu Ky1drQBbGUQpIL1wIlIsaZWfVLWlgx10yKmeRHoj rcLwsG7vTnTqWZPaaXYgEKOqRT0hfXHsQFJkdJ2b rvsyJVBcGeQogukeWNRuoXwhreFnZw1okTzkXIX5 YIffF7qxwV0yGnE8ZGqsC8traU8yGKk5JXabrEN3 SCLfjK9pBG9kekqab2mzLbNlZT8pgvsvr6fpRgWj SV2dpbr2u5jaCkKeDK7iltiwf2afIjZbVZbmPCZf xjksEVLwc1WigefyAHImg4QuO0WfiLgrE52adPvh R13wZFJrwPaviW7anEdlxP1xPbAlSzZsKMfkyOdy bGFpblxmMFxmczIwXHBsYWluXGYxXGZzMjAgQVJU DOEQTGLCPJKJNTLREi9NRXPuWPREJFWKMWVSKPWP K23ZRrlxUIXrM6JBY8uFSOXaSDWZSPNXT8YOBBPN VElDIFBMQVFVRSBXSVRIIElOVFJBUExBUVVFIEhF AO2KXshIZ3JyzJLrkCqcbnUvZUgpq1PnWQaeWOMt UF6blNquQXPkAL8gGBWmP8yukW2ubqo1AhDzHDNm NfB9VWKrcvN5Uoo7CPOeQMjqu5yiv2ZzNGQrZHh5 kTacQhIzHOQou5owowLjQeIyBCDtLOXzEODmkRTn G155x1mpu2awtnFuhWD7YUJnJJL8XEbtynZkqjG6 ZFdqhLScNkU1EGckzqNwWIwnvkJlfgEbNna3HNFh R510LSR0iYmnu2dzLVN0CMYtBEGnUbTwSq1laYMx W128RYUzSWTPKSUplRv1QSTvvgBdwuRobQZAg237 W543v4pmDLAkssErvDjWvxqiv5ydN138AXDjaDUs wjOcXjTqIOLihEMylGP1WJCyRQ3zmbxzUHprHTlv BDRgecS8KUBqwXDgG9NyWDHfHF9uzhsuFKE0HJhh IOKcUYJ8HwXlLDYfe8Qofre5CcUnnx5gps26AHE6 g7KscSraTWC6TTZ4OoMqEv3bqQCmZVWzGB8oNnTb qWHhEKPvjd68cKabYGfgTZH9IBAcbxEjb5Nnr3gx NlQiheFqX7kgA4KxNJQmUZBkUETdAiClxwSmk2Xh g0UysBQrtYg7k1kbCDOfRNJjnYirf7swXUH3OMGg zBZyP3xaeC3tYUBgGT9mvzymo8htZGsfHQuoEWAg aXM5ewH3WHVolRKiE8SiiQ7wNMTvVWgbMAEppaz6 BoCoAp6yuDCzvJliZVurUkkuCQwtCLWrxyXqeiEu cGduZGVjXHBsYWluXHBsYWluXGYwXGZzMjRccWxc xIBhCgReBnQzeJmkyLmnAWmzVlFlSWWwSYwoH1gb WoYsFaXsAyd9TMNqnVNwOBLuDnn8VCYjtTMgVRUY zFcdoL3nCITcfRwsnJ1xhUC3GGFbzjHctYGEuM7k KUARjF1iLkU7HeAfUiA4SEq6OIApxQZpyX3= CPT Code(s) (test code = 3357) i8zelHUqOMMjuLCzEiInRXXpXGVei7prAQDl bGFu BiXsJaZzAhFqXkuouZEiXQTjWdPte0hhx695cDSc z5vnOELqZsI1dEUkMHPmoBJcF737b9woz4vaujGp mIS9PCHaTTP5CVxhueFmeaL4CJlbbWTjPlO4FWad esKsJLgporTrpvOzMuu1XTJeR067PJM6jAyua3an PDK7EPHdKTGhDpCgRn8rgWUwH175ACIkHYCRPFBc sEp1PTMxikBxscHqtJLVz834P466h6wtKSMyhkFk pLnUbbbre5wmB586XFKdxUAnczPkEpVzMREtgHVu yFK9HVUqXC4qbebjPeByQJ2gladnEmSzGF9hwxh8 BgRxMI2yxxztGtEoZKtkVNArmujcHQDgf7Yducbu ZJ9bV9Rjt4C9fA0zaEEcJLQvrUGnLdGrCVCset4v vHDrNCarh3CnTOR6iwW7mSFxvKNqNJVtTN16Tmtg h1KuXbylQRM0KJAhfoTkj5Yrj6zoWuMpbqJnO2bt W1MnZEYmMACaFVExHfYrhdDfh4Aow8IevZMhiLd5 i4opBEJwWCKtaBykw8ceBIM4IBXmJ5X6rHPaq1om VJnmVRNxbKQ7hbvdSLlmNUJcdfJ7xgqwUByaVYLn tCP2zfeyQQcfVZWvXzR0agxrPIhdPJTtHFC4RMvq o728LBU9ZRiqAsmiQWtfAFRzzxBozpFybYmvOCMr XMQhLOdkXIEkUPuqDUOcWQFzGuUioRgevJzlfS7q BbAsExCfMBriUN4lTPXoI1cedMTkLYVcHNMdA0vp IfUbsR9fsHmeJFofmlFbUJh3LxI7XoE4IVHsQDcg YXJ9 CLINICAL HISTORY (test code = 3356) i1ujyKXkDNGtgJMxPrNgSTPmICYls9h cZGVmbGFu ZjVhNnHeDjTtDizsvWMhJRQtXpIzt3xen212mDNq r0njYZPdBaY2dHFcBIFugKUuB311a5sgs2jqblFo gAW5EGMwWBO3FImdjfEyfaT6PWquuPEgRnN4XSyq poAiLIydnkGeklYaVsu2VKSeW967KMQ6mSnww2wh TAF7XRJuDLVcDcLtQv1bgBHnS782RKMxDAMAGUXy wBm2KULvawZaklXnhHPWr313G336x2qqNMYlygYa nDoUxaqdv4cgR156DBMtwCPfpsGmOvDgYIPfuUEh cFS0SGDrOF5wmdpiIwHrIM1ptpqqJxAeCZ0izpg0 LlSsAV7zgahmGzObYCoqUKYhemhsUPSun7Cddkzr OX7hX4Xfp2V4cI0dlDYjRTBuxMTgQkWrHTCqsj1a xOHrQKzdj5DuMOB5yoC6rACqbDUoMHNmDI68Fghs r0HlZugzEJS7DZEkjjWer6Bxh0mkKeRcgtFjF0hz Q8AzJFUzCPQoPFPmVxGanvGbc4Ubp7TagMMjoCl8 v6iiPDTqZURmaLqrf5waKCZ5XWKgU3P1mBKyd4ad RJjgYCWucCX5gkqqSHjaFUYwalX3rcmhEEuzDPWy rUT3oisrQFatUWQyAtF7rleuJMksWMKmDWW9ZTuu x586XWY8HDgdGzffUKmeKDHbwgNhviJqdNkfJBJa GRNsBAvcHKWsLUlbEXZwLXTgIqLyiBzouCeeoT5g BpLpLkVyALydOP2xDVStQ9ewzDRoZIGsOCUyR2ol BaIpqW8zcQplPJcnciYtDQTvKQ4nAHVsCIxql3Nb lrwkEAChxq10hBAlj9Efjf4owLKdZParAdRblMJx fQ== SPECIMEN SOURCE (test code = 3377) e1ktaJMcYALnqCNlRyEoOWElYFYku9vk ZGVmbGFu GrHhWhIxVjPpPdkyqJDrIMIdXpEjx3gze885iIMu z3ucHKNpOyS2kBMwRKCetGVqI291c3loi1kdekIt hAV6SUMvYYV0QUszzxNwmuT6HUltyGUjRqX0QKvf ndLwDNdpqyJfycGhHrk9SVLcA109AJG4oArix8yt CEV7GFHfILExBwRiCo3zjQPaS938IZVmSSHEWVVb pQb4VSYncqOmcgHqoIDEb112S707u7piDTPgslTk iBdDawnmj6dbW175TLTkzGIateSwWvAfHPJadOUf xRS7SPMxCG4ogjcyAfGqCD9luosnMfEhFQ0syru8 AvWxJA1mrlmoUdFxAPhsBTGefvjrKDMrv7Ylnltu TQ6yX7Mst6F5dV9mjUIeCTHiaVOyKfAaPLDfih3g yQQcMEqdl7WbTLC3uwM6ySZkbDQpRFGnYE18Hqiz p8KwSgyfPNG2NDBnopNdj9Qgj7dmIzGziuRoX2kq J1VsUZGsNKApWOEpHnDlewAps2Bpb7RinNEouTn4 m7gnPRZhIFYteNuxt7ypDYH9EQScC8B4tDMtl5eu MRkwRXVjdYQ2orxvVJhiFBQxvbT2vmpeIRmrOWMm mXF2ordjVWtfRELpHwZ5tdpiORpnWGRhGEW3JDqe k480COQ4EPyvZoigUYogTRCqndYnqmPpsKsrWIRk PWGpQIspYEPkWFxxGWQvRRSeTwHbiLlgyZkarD8z GyQyRaKoNYnyKJ3zPIZqS9pwgHScPYWcNTBcW3kr PjVjoS4phHtgPAfpylDgHNCuQIB8FWEvqDPunU== GROSS DESCRIPTION (test code = 3366) k6qhrKKzPDZaaOZqZrZgJGXiPOFum6 lcZGVmbGFu [file] bCBccGFyfQ== MICROSCOPIC DESCRIPTION (test code = h3wpoGHbXFDhlNIoRlVaTVOhVZHgl6 [place] [address]) DeBfVhOiTyBxEirhuGJzQQBbLmMwi0pht142oPGh e1vdXJDfEbG6zKIyOPIakHQzF450q3etr1everTz aLV6HCAlRHR1HCwgsiLjmkZ0JHhjuEDwXvE8YTbv shDfLGfqhgOzlvDhCts2DFCqB996TCW0gBfaw1oc CBJ8ZZHfFLExQyPbIl8mpOFuF594EGCaWYURAFUh xTr0RIBsdcNigpWmcMVOr301B242j1roDUBpnbIs jZeRdknbf4rxS221NNZbuQDyxtYbVlFlAGQrtDZc hEV4JGWgVW6dkufyKoSgHM4gftrnYqWxNG2nlbv1 BzYpHM3xsyfqQtJnEUapCHUohbkoLUCsm3Dtsudj HS0eD1Ehd2L8vB2ovUAlRNEbsIHiMvEkNETraw4y dZYoBDobq3EfUDG8edQ8fIUbrKDlHZYlQH18Pkbr d1LtMdepPHZ9LPRuuwFxi6Pfe8bfPvWuvmHiL6lq Y0GmBVYzVFGmIYMdPwQvvdOtr5Uiz3LfjEDlsAw3 k1mtWESxMJAdzHbhv3msTYD5ZDDaD6I7vQIrn5zi HDtkZVWlsVT4ileyTHblKYLygaF2nahnEMgvLLFw fUX5qyjqWUwbUUSdFpT8inxzAPltYITqTIW5LCib a782OPH0VFdfZgtfZSbyDKHjmtMuqeJwdOuwWISf RYZoHQumLSAvBIurIVCyXTWnCkGhbGpvmSiwsA8g RaUvZmAaLZztCA9uKNWnY5chdMBdAQJiJTQwI8jo EkZiwJ8esAulRRdljxQhPRMsdyLcmh4sIAcvZCJ2 [facility] [id number] 12:51:00Surgical Pathology Report Case: [id number] Authorizing Provider: Gary Crawford, Collected: 10/04/2019 08:59 AM OrderingLocation: [facility] Received: 10/04/2019 10:13 AM PERIOPERATIVE SERVICES Pathologist: Augusto Silva MD Specimen: Plaque, CAROTID PLAQUE ARTERY, LEFT CAROTID, ENDARTERECTOMY:CALCIFIC ATHEROSCLEROTIC PLAQUE WITH INTRAPLAQUE HEMORRHAGE Signing PathologistDirect Phone Line: [phone] signed by Augusto Silva MD on 10/23/2019 at 12:51 [id number]; [id number] diagnosis: Carotid stenosis, leftPlaque Received in formalin labeled with the patient's name, accession number and "carotid plaque" is a 2.5 cm in length x 0.5 cm in diameter baires-yellow bifurcated, tubular piece of focally calcified plaque. Rope Maker sections are submitted in A1 f ollowing decalcification. PA/pl PerformedCBC with platelet count + automated [id number] 04:57:00 Test Item Value Reference Range Interpretation Comments WBC (test code = 6690-2) 13.9 3.5- 10.5 K/L H RBC (test code = 789-8) 3.97 3.93- 5.22 M/L MCHC (test code = 786-4) 33.6 32.2- 35.5 GM/DL Hematocrit (test code = 4544-3) 37.8 % 34.1-44.9 MCV (test code = 787-2) 95.2 fL 79.4-94.8 H MCH (test code = 785-6) 32.0 pg 25.6-32.2 RDW (test code = 788-0) 13.0 % 11.7-14.4 Platelets (test code = 777-3) 199 150- 450 K/CU MM MPV (test code = 34709-2) 11.6 fL 9.4-12.3 nRBC (test code = 413) 0 0- 0 /100 WBC % Neutros (test code = 429) 81 % % Lymphs (test code = 430) 12 % % Monos (test code = 431) 6 % % Eos (test code = 432) 0 % % Baso (test code = 437) 0 % # Neutros (test code = 670) 11.27 1.56- 6.13 K/L H # Lymphs (test code = 414) 1.65 1.18- 3.74 K/L # Monos (test code = 415) 0.88 0.24- 0.36 K/L H # Eos (test code = 416) 0.00 0.04- 0.36 K/L L # Baso (test code = 417) 0.03 0.01- 0.08 K/L Immature Granulocytes-Relative 1 % 0-1 (test code = 2801) Lab Interpretation (test code = Abnormal 76434-5) [facility] W/PLT COUNT & AUTO [id number] 04:57:00 Test Item Value Reference Range Interpretation Comments WHITE BLOOD CELL COUNT (BEAKER) 13.9 K/ L 3.5-10.5 H (test code = 775) RED BLOOD CELL COUNT (BEAKER) 3.97 M/ L 3.93-5.22 (test code = 761) HEMOGLOBIN (BEAKER) (test code = 12.7 GM/DL 11.2-15.7 410) HEMATOCRIT (BEAKER) (test code = 37.8 % 34.1-44.9 411) MEAN CORPUSCULAR VOLUME (BEAKER) 95.2 fL 79.4-94.8 H (test code = 753) MEAN CORPUSCULAR HEMOGLOBIN 32.0 pg 25.6-32.2 (BEAKER) (test code = 751) MEAN CORPUSCULAR HEMOGLOBIN CONC 33.6 GM/DL 32.2-35.5 (BEAKER) (test code = 752) RED CELL DISTRIBUTION WIDTH 13.0 % 11.7-14.4 (BEAKER) (test code = 412) PLATELET COUNT (BEAKER) (test 199 K/CU MM 150-450 code = 756) MEAN PLATELET VOLUME (BEAKER) 11.6 fL 9.4-12.3 (test code = 754) NUCLEATED RED BLOOD CELLS 0 /100 WBC 0-0 (BEAKER) (test code = 413) NEUTROPHILS RELATIVE PERCENT 81 % (BEAKER) (test code = 429) LYMPHOCYTES RELATIVE PERCENT 12 % (BEAKER) (test code = 430) MONOCYTES RELATIVE PERCENT 6 % (BEAKER) (test code = 431) EOSINOPHILS RELATIVE PERCENT 0 % (BEAKER) (test code = 432) BASOPHILS RELATIVE PERCENT 0 % (BEAKER) (test code = 437) NEUTROPHILS ABSOLUTE COUNT 11.27 K/ L 1.56-6.13 H (BEAKER) (test code = 670) LYMPHOCYTES ABSOLUTE COUNT 1.65 K/ L 1.18-3.74 (BEAKER) (test code = 414) MONOCYTES ABSOLUTE COUNT (BEAKER) 0.88 K/ L 0.24-0.36 H (test code = 415) EOSINOPHILS ABSOLUTE COUNT 0.00 K/ L 0.04-0.36 L (BEAKER) (test code = 416) BASOPHILS ABSOLUTE COUNT (BEAKER) 0.03 K/ L 0.01-0.08 (test code = 417) IMMATURE GRANULOCYTES-RELATIVE 1 % 0-1 PERCENT (BEAKER) (test code = 2801) Basic Metabolic [id number] 04:56:00 Test Item Value Reference Range Interpretation Comments Sodium (test code = 137 meq/L 574-653 1421-2) Potassium (test 4.8 meq/L 3.5-5.1 Specimen i [facility] code = 2823-3) hemolyzed Chloride (test code 107 meq/L 98-107 = 2075-0) CO2 (test code = 22 meq/L 22-29 8-9) BUN (test code = 17 mg/dL 7-21 3094-0) Creatinine (test 1.06 mg/dL 0.57-1.25 Specimen sl ightly code = 2160-0) hemolyzed Glucose (test code 104 mg/dL 70-105 = 2345-7) Calcium (test code 9.5 mg/dL 8.4-10.2 = 15599-1) EGFR (test code = 52 mL/min/1.73 [place] [address]-6) NOT ACCURATE CREATININE CLEARANCE IN PREDICTING GLOMERULAR FILTRATION RATE . ESTIMATED GFR I S NOT APPLICABLE FOR DIALYSIS PATIEN TS. IKE (test code = House Painter ID - IKE) TIP M [facility] METABOLIC [id number] 04:56:00 Test Item Value Reference Range Interpretation Comments SODIUM (BEAKER) 137 meq/L 136-145 (test code = 381) POTASSIUM (BEAKER) 4.8 meq/L 3.5-5.1 Specimen slightly (test code = 379) hemolyzed CHLORIDE (BEAKER) 107 meq/L 98-107 (test code = 382) CO2 (BEAKER) (test 22 meq/L 22-29 code = 355) BLOOD UREA NITROGEN 17 mg/dL 7-21 (BEAKER) (test code = 354) CREATININE (BEAKER) 1.06 mg/dL 0.57-1.25 Specimen slightly (test code = 358) hemolyzed GLUCOSE RANDOM 104 mg/dL 70-105 (BEAKER) (test code = 652) CALCIUM (BEAKER) 9.5 mg/dL 8.4-10.2 (test code = 697) EGFR (BEAKER) (test 52 mL/min/1.73 ESTIMA VESNA GFR IS code = 1092) sq m NOT ACCURATE CREATININE CLEARANCE IN PREDICTING GLOMERULAR FILTRATION RATE . ESTIMATED GFR I S NOT APPLICABLE FOR DIALYSIS PATIEN TS. House Painter ID - TIP MBASIC METABOLIC [id number] 07:07:00 Test Item Value Reference Range Interpretation Comments SODIUM (BEAKER) 140 meq/L 136-145 (test code = 381) POTASSIUM (BEAKER) 4.3 meq/L 3.5-5.1 (test code = 379) CHLORIDE (BEAKER) 106 meq/L 98-107 (test code = 382) CO2 (BEAKER) (test 26 meq/L 22-29 code = 355) BLOOD UREA NITROGEN 20 mg/dL 7-21 (BEAKER) (test code = 354) CREATININE (BEAKER) 1.16 mg/dL 0.57-1.25 (test code = 358) GLUCOSE RANDOM 96 mg/dL 70-105 (BEAKER) (test code = 652) CALCIUM (BEAKER) 9.4 mg/dL 8.4-10.2 (test code = 697) EGFR (BEAKER) (test 46 mL/min/1.73 ESTIMA VESNA GFR IS code = 1092) sq m NOT ACCURATE CREATININE CLEARANCE IN PREDICTING GLOMERULAR FILTRATION RATE . ESTIMATED GFR I S NOT APPLICABLE FOR DIALYSIS PATIEN TS. House Painter ID - TIP [id number] 06:36:00 Test Item Value Reference Range Interpretation Comments PTT (test code = 20465-6) 30.2 22.5- 36.0 seconds Lab Interpretation (test code = Normal 40492-8) [facility] Test Item Value Reference Range Interpretation Comments PARTIAL THROMBOPLASTIN TIME 30.2 seconds 22.5-36.0 (BEAKER) (test code = 760) Prothrombin time/[id number] 06:35:00 Test Item Value Reference Range Interpretation Comments Protime (test code = 14.4 11.9- 14.2 H 5902-2) seconds INR (test code = 1.2 <=5.9 6301-6) IKE (test code = IKE) Effective 10/13/2018: PT Reference Range ChangeNew: 11.9-14.2 Previous: 11.7-14.7 RECOMMENDED COUMADIN/WARFARIN INR THERAPY RANGESSTANDARD DOSE: 2.0-3.0 Includes: PROPHYLAXIS for venous thrombosis, systemic embolization; TREATMENT for venous thrombosis and/or pulmonary embolus.HIGH RISK: Target INR is 2.5-3.5 for patients wiht mechanical heart valves. Lab Interpretation Abnormal (test code = 44122-5) [facility]/[id number] 06:35:00 Test Item Value Reference Range Interpretation Comments PROTIME (BEAKER) (test code = 14.4 seconds 11.9-14.2 H 759) INR (BEAKER) (test code = 370) 1.2 <=5.9 Effective 10/13/2018: PT Reference Range ChangeNew: 11.9-14.2 Previous: 11.7- 14.7RECOMMENDED COUMADIN/WARFARIN INR THERAPY RANGESSTANDARD DOSE: 2.0-3.0 Includes: PROPHYLAXIS for venous thrombosis, systemic embolization; TREATMENT for venous thrombosis and/or pulmonary embolus.HIGH RISK: Target INR is2.5-3.5 for patients wiht mechanical heart valves.CBC W/PLT COUNT & AUTO [id number] 06:19:00 Test Item Value Reference Range Interpretation Comments WHITE BLOOD CELL COUNT (BEAKER) 10.2 K/ L 3.5-10.5 (test code = 775) RED BLOOD CELL COUNT (BEAKER) 4.60 M/ L 3.93-5.22 (test code = 761) HEMOGLOBIN (BEAKER) (test code = 14.5 GM/DL 11.2-15.7 410) HEMATOCRIT (BEAKER) (test code = 43.7 % 34.1-44.9 411) MEAN CORPUSCULAR VOLUME (BEAKER) 95.0 fL 79.4-94.8 H (test code = 753) MEAN CORPUSCULAR HEMOGLOBIN 31.5 pg 25.6-32.2 (BEAKER) (test code = 751) MEAN CORPUSCULAR HEMOGLOBIN CONC 33.2 GM/DL 32.2-35.5 (BEAKER) (test code = 752) RED CELL DISTRIBUTION WIDTH 13.2 % 11.7-14.4 (BEAKER) (test code = 412) PLATELET COUNT (BEAKER) (test 227 K/CU MM 150-450 code = 756) MEAN PLATELET VOLUME (BEAKER) 11.2 fL 9.4-12.3 (test code = 754) NUCLEATED RED BLOOD CELLS 0 /100 WBC 0-0 (BEAKER) (test code = 413) NEUTROPHILS RELATIVE PERCENT 63 % (BEAKER) (test code = 429) LYMPHOCYTES RELATIVE PERCENT 26 % (BEAKER) (test code = 430) MONOCYTES RELATIVE PERCENT 7 % (BEAKER) (test code = 431) EOSINOPHILS RELATIVE PERCENT 3 % (BEAKER) (test code = 432) BASOPHILS RELATIVE PERCENT 1 % (BEAKER) (test code = 437) NEUTROPHILS ABSOLUTE COUNT 6.40 K/ L 1.56-6.13 H (BEAKER) (test code = 670) LYMPHOCYTES ABSOLUTE COUNT 2.60 K/ L 1.18-3.74 (BEAKER) (test code = 414) MONOCYTES ABSOLUTE COUNT (BEAKER) 0.75 K/ L 0.24-0.36 H (test code = 415) EOSINOPHILS ABSOLUTE COUNT 0.29 K/ L 0.04-0.36 (BEAKER) (test code = 416) BASOPHILS ABSOLUTE COUNT (BEAKER) 0.09 K/ L 0.01-0.08 H (test code = 417) IMMATURE GRANULOCYTES-RELATIVE 0 % 0-1 PERCENT (BEAKER) (test code = 2801) SARS-CoV2/RT-PCR (Asymptomatic ONLY)2019-10-02 16:08:00 Test Item Value Reference Range Interpretation Comments SARS-COV2/RT-PCR (test code = Negative Not Detected, Negative 49324-1) SARS-COV-2 PERFORMING LAB CPL (test code = 17617-7) [facility]-10-02 16:08:00 Test Item Value Reference Range Interpretation Comments SARS-COV2/RT-PCR (test code = Negative Not Detected, Negative 1255943) SARS-COV-2 PERFORMING LAB CPL (test code = 5469474) Type and screen, [id number] 12:45:00 Test Item Value Reference Range Interpretation Comments ABO/RH AUTOMATED (BEAKER) (test O POSITIVE code = 2260) Ab Scrn (test code = 890-4) NEGATIVE [facility] [id number] 08:37:00 Test Item Value Reference Range Interpretation Comments [...] 0.57-1.25 (test code = 358) GLUCOSE RANDOM 125 mg/dL 70-105 H (BEAKER) (test code = 652) CALCIUM (BEAKER) 8.8 mg/dL 8.4-10.2 (test code = 697) EGFR (BEAKER) (test 70 mL/min/1.73 ESTIMA VESNA GFR IS code = 1092) sq m NOT ACCURATE CREATININE CLEARANCE IN PREDICTING GLOMERULAR FILTRATION RATE . ESTIMATED GFR I S NOT APPLICABLE FOR DIALYSIS PATIEN TS. CBC (HEMOGRAM ONLY)2018-08-04 06:39:00 Test Item Value [...] WBC 0-0 (BEAKER) (test code = 413) [id number] 05:16:00 Test Item Value Reference Range Interpretation Comments MAGNESIUM (BEAKER) (test code = 2.1 mg/dL 1.6-2.6 627) BASIC METABOLIC [id number] 05:16:00 Test Item Value Reference Range Interpretation [...] 0-0 (BEAKER) (test code = 413) CT, [id number] 03:48:00FINAL REPORT CLINICAL HISTORY: Abnormal abdominal x-ray, [...] with adjacent atelectasis versuspneumonitis. Signed: Ramu Jimenez MDReport Verified Date/Time: 08/03/2018 03:48:58 Reading Location: [address] Reading Room RAD, ABDOMEN/KUB, 1 VIEW [id number] 14:26:00Reason for exam:- >abdominal distension, nauseaFINAL REPORT [...] and hips are noted. Signed: Judith Amanda MDReport Verified Date/Time: 08/02/2018 14:26:34 Reading Location: [facility] Reading Room [id number] 05:13:00 Test Item Value Reference Range Interpretation Comments MAGNESIUM (BEAKER) (test code = 1.8 mg/dL 1.6-2.6 627) BASIC METABOLIC [id number] 05:13:00 Test Item Value Reference Range Interpretation [...] WBC 0-0 (BEAKER) (test code = 413) [id number] 05:56:00 Test Item Value Reference Range Interpretation Comments MAGNESIUM (BEAKER) (test code = 2.0 mg/dL 1.6-2.6 627) BASIC METABOLIC [id number] 05:56:00 Test Item Value Reference Range Interpretation [...] (BEAKER) (test code = 413) BASIC METABOLIC [id number] 04:46:00 Test Item Value Reference Range Interpretation [...] WBC 0-0 (BEAKER) (test code = 413) [id number] 08:08:00 Test Item Value Reference Range Interpretation Comments MAGNESIUM (BEAKER) (test code = 1.9 mg/dL 1.6-2.6 627) BASIC METABOLIC [id number] 08:08:00 Test Item Value Reference Range Interpretation [...] = 413) RAD, CHEST, 1 VIEW, NON [id number] 08:21:00while patient is intubated or has chest [...] technique with sternotomy wires. Signed: Gege Barba MDReport Verified Date/Time: 07/29/2018 08:21:09 Reading Location: [facility] Radiology Reading Room [id number] 06:05:00 Test Item Value Reference Range Interpretation Comments PHOSPHORUS (BEAKER) (test code = 4.2 mg/dL 2.3-4.7 604) [id number] 06:05:00 Test Item Value Reference Range Interpretation Comments MAGNESIUM (BEAKER) (test code = 1.9 mg/dL 1.6-2.6 627) BASIC METABOLIC [id number] 06:05:00 Test Item Value Reference Range Interpretation [...] (BEAKER) (test code = 413) BLOOD GAS, [id number] 04:06:00 Test Item Value Reference Range Interpretation [...] code = 1819) 28.0 % BLOOD GAS, [id number] 00:33:00 Test Item Value Reference Range Interpretation [...] (test code = 1819) 40.0 % GLUCOSE-STAT [id number] 00:33:00 Test Item Value Reference Range Interpretation Comments GLUCOSE RANDOM (BEAKER) (test code 134 mg/dL 70-110 H = 652) HGB/HCT (H&H) - STAT [id number] 00:33:00 Test Item Value Reference Range Interpretation Comments HEMOGLOBIN (BEAKER) (test code = 8.6 g/dL 12.0-15.0 L 410) HEMATOCRIT (BEAKER) (test code = 25.0 % 36.0-45.0 L 411) RAD, CHEST, 1 VIEW, NON [id number] 23:32:00Reason for exam:->respiratory insufficencyShould this be performed [...] Nieves Verified Date/Time: 07/28/2018 23:32:13 Reading Location: [address] Transitional Reading Room LACTIC ACID, ARTERIAL 2018-07-28 22:20:00 Test Item Value Reference Range Interpretation Comments LACTATE BLOOD ARTERIAL (2) 1.0 mmol/L 0.5-2.2 (BEAKER) (test code = 2874) BLOOD GAS, [id number] 22:08:00 Test Item Value Reference Range Interpretation [...] 1819) 36.0 % HGB/HCT (H&H) - STAT [id number] 22:08:00 Test Item Value Reference Range Interpretation Comments HEMOGLOBIN (BEAKER) (test code = 8.5 g/dL 12.0-15.0 L 410) HEMATOCRIT (BEAKER) (test code = 25.0 % 36.0-45.0 L 411) LACTIC ACID, [id number] 20:37:00 Test Item Value Reference Range Interpretation Comments LACTATE BLOOD 1.8 mmol/L 0.5-2.2 Specimen sligh tly ARTERIAL (2) (BEAKER) hemoly zed (test code = 2874) SODIUM NA-STAT [id number] 20:14:00 Test Item Value Reference Range Interpretation Comments SODIUM (BEAKER) (test code = 381) 139 meq/L 135-148 POTASSIUM-STAT [id number] 20:14:00 Test Item Value Reference Range Interpretation Comments POTASSIUM (BEAKER) (test code = 3.5 meq/L 3.6-5.5 L 379) GLUCOSE-STAT [id number] 20:14:00 Test Item Value Reference Range Interpretation Comments GLUCOSE RANDOM (BEAKER) (test code 128 mg/dL 70-110 H = 652) BLOOD GAS, [id number] 20:14:00 Test Item Value Reference Range Interpretation [...] 1819) 40.0 % HGB/HCT (H&H) - STAT [id number] 20:14:00 Test Item Value Reference Range Interpretation Comments HEMOGLOBIN (BEAKER) (test code = 9.2 g/dL 12.0-15.0 L 410) HEMATOCRIT (BEAKER) (test code = 27.0 % 36.0-45.0 L 411) HEMOGLOBIN [id number] 17:32:00 Test Item Value Reference Range Interpretation Comments HEMOGLOBIN A1C (BEAKER) (test code = 5.8 % 4.3-6.1 368) HEMOGLOBIN [id number] 17:00:00 Test Item Value Reference Range Interpretation Comments HEMOGLOBIN A1C (BEAKER) (test code = 5.8 % 4.3-6.1 368) RAD, CHEST, 1 VIEW, NON [id number] 16:44:00Reason for exam:->Status post CV Surgery post [...] MDReport Verified Date/Time: 07/28/2018 16:44:35 Reading Location: [facility] Radiology Reading Room MAGNESIUM 2018-07-28 16:26:00 Test Item Value Reference Range Interpretation Comments MAGNESIUM (BEAKER) 2.8 mg/dL 1.6-2.6 H Specimen slightly (test code = 627) hemolyzed [id number] 16:26:00 Test Item Value Reference Range Interpretation Comments PHOSPHORUS (BEAKER) 3.4 mg/dL 2.3-4.7 Specimen slightly (test code = 604) hemolyzed [id number] 16:26:00 Test Item Value Reference Range Interpretation Comments POTASSIUM (BEAKER) 4.3 meq/L 3.5-5.1 Specimen slightly (test code = 379) hemolyzed [id number] 16:26:00 Test Item Value Reference Range Interpretation Comments GLUCOSE RANDOM (BEAKER) (test code 104 mg/dL 70-105 = 652) BASIC METABOLIC [id number] 16:26:00 Test Item Value Reference Range Interpretation [...] APPLICABLE FOR DIALYSIS PATIEN TS. LACTIC ACID, [id number] 16:24:00 Test Item Value Reference Range Interpretation Comments LACTATE BLOOD 0.9 mmol/L 0.5-2.2 Specimen sligh tly ARTERIAL (2) (BEAKER) hemoly zed (test code = 2874) [id number] 16:20:00 Test Item Value Reference Range Interpretation Comments FIBRINOGEN LEVEL (BEAKER) (test 237 mg/dl 225-434 code = 658) [id number] 16:20:00 Test Item Value Reference Range Interpretation [...] 2.5-3.5 for patients with mechanical heart valves.PROTHROMBIN TIME/[id number] 16:19:00 Test Item Value Reference Range Interpretation [...] (BEAKER) (test code = 2801) OXYGEN SATURATION, [id number] 16:07:00 Test Item Value Reference Range Interpretation Comments O2 SATURATION (MEASURED) (BEAKER) 61.6 % (test code = 1455) BLOOD GAS, [id number] 16:07:00 Test Item Value Reference Range Interpretation [...] (test code = 1819) 50.0 % CALCIUM, [id number] 16:07:00 Test Item Value Reference Range Interpretation Comments CALCIUM IONIZED (BEAKER) (test 1.16 mmol/L 1.12-1.27 code = 698) PH, BLOOD (BEAKER) (test code = 7.54 1810) BLOOD GAS, [id number] 14:29:00 Test Item Value Reference Range Interpretation [...] (test code = 1819) 100.0 % GLUCOSE-STAT [id number] 14:29:00 Test Item Value Reference Range Interpretation Comments GLUCOSE RANDOM (BEAKER) (test code 126 mg/dL 70-110 H = 652) HGB/HCT (H&H) - STAT [id number] 14:29:00 Test Item Value Reference Range Interpretation Comments HEMOGLOBIN (BEAKER) (test code = 9.4 g/dL 12.0-15.0 L 410) HEMATOCRIT (BEAKER) (test code = 28.0 % 36.0-45.0 L 411) CALCIUM, [id number] 14:29:00 Test Item Value Reference Range Interpretation Comments CALCIUM IONIZED (BEAKER) (test 1.10 mmol/L 1.12-1.27 L code = 698) PH, BLOOD (BEAKER) (test code = 7.47 1810) SODIUM NA-STAT [id number] 14:28:00 Test Item Value Reference Range Interpretation Comments SODIUM (BEAKER) (test code = 381) 137 meq/L 135-148 POTASSIUM-STAT [id number] 14:28:00 Test Item Value Reference Range Interpretation Comments POTASSIUM (BEAKER) (test code = 4.7 meq/L 3.6-5.5 379) SODIUM NA-STAT [id number] 14:03:00 Test Item Value Reference Range Interpretation Comments SODIUM (BEAKER) (test code = 381) 136 meq/L 135-148 POTASSIUM-STAT [id number] 14:03:00 Test Item Value Reference Range Interpretation Comments POTASSIUM (BEAKER) (test code = 5.4 meq/L 3.6-5.5 379) BLOOD GAS, [id number] 14:03:00 Test Item Value Reference Range Interpretation [...] (test code = 1819) 75.0 % GLUCOSE-STAT [id number] 14:03:00 Test Item Value Reference Range Interpretation Comments GLUCOSE RANDOM (BEAKER) (test code 141 mg/dL 70-110 H = 652) HGB/HCT (H&H) - STAT [id number] 14:03:00 Test Item Value Reference Range Interpretation Comments HEMOGLOBIN (BEAKER) (test code = 8.9 g/dL 12.0-15.0 L 410) HEMATOCRIT (BEAKER) (test code = 26.0 % 36.0-45.0 L 411) BLOOD GAS, [id number] 13:55:00 Test Item Value Reference Range Interpretation [...] (test code = 1819) 65.0 % GLUCOSE-STAT [id number] 13:55:00 Test Item Value Reference Range Interpretation Comments GLUCOSE RANDOM (BEAKER) (test code 166 mg/dL 70-110 H = 652) HGB/HCT (H&H) - STAT [id number] 13:55:00 Test Item Value Reference Range Interpretation Comments HEMOGLOBIN (BEAKER) (test code = 8.2 g/dL 12.0-15.0 L 410) HEMATOCRIT (BEAKER) (test code = 24.0 % 36.0-45.0 L 411) BLOOD GAS, [id number] 13:54:00 Test Item Value Reference Range Interpretation [...] code = 1819) 65.0 % SODIUM NA-STAT [id number] 13:50:00 Test Item Value Reference Range Interpretation Comments SODIUM (BEAKER) (test code = 381) 135 meq/L 135-148 POTASSIUM-STAT [id number] 13:50:00 Test Item Value Reference Range Interpretation Comments POTASSIUM (BEAKER) (test code = 4.3 meq/L 3.6-5.5 379) BLOOD GAS, [id number] 12:49:00 Test Item Value Reference Range Interpretation [...] (test code = 1819) 100.0 % GLUCOSE-STAT [id number] 12:49:00 Test Item Value Reference Range Interpretation Comments GLUCOSE RANDOM (BEAKER) (test code 114 mg/dL 70-110 H = 652) SODIUM NA-STAT [id number] 12:48:00 Test Item Value Reference Range Interpretation Comments SODIUM (BEAKER) (test code = 381) 137 meq/L 135-148 POTASSIUM-STAT [id number] 12:48:00 Test Item Value Reference Range Interpretation Comments POTASSIUM (BEAKER) (test code = 3.6 meq/L 3.6-5.5 379) HGB/HCT (H&H) - STAT [id number] 12:48:00 Test Item Value Reference Range Interpretation Comments HEMOGLOBIN (BEAKER) (test code = 12.4 g/dL 12.0-15.0 410) HEMATOCRIT (BEAKER) (test code = 36.0 % 36.0-45.0 411) [id number] 07:19:00 Test Item Value Reference Range Interpretation Comments MAGNESIUM (BEAKER) (test code = 1.9 mg/dL 1.6-2.6 627) BASIC METABOLIC [id number] 07:19:00 Test Item Value Reference Range Interpretation [...] NOT APPLICABLE FOR DIALYSIS PATIEN TS. LIPID [id number] 07:19:00 Test Item Value Reference Range Interpretation [...] Borderline 130-159 High 160-189 Very High >=190TROPONIN [id number] 07:04:00 Test Item Value Reference Range Interpretation [...] failure, acidosis, acute neurological disease, and persistent tachyarrhythmia.[id number] 06:39:00 Test Item Value Reference Range Interpretation [...] = 413) RAD, CHEST, 1 VIEW, NON [id number] 03:03:00Reason for exam:->Pre-Op ScreeningShould this be performed [...] Impression:Atherosclerotic aorta.No focal pulmonary consolidation. Signed: [facility] Verified Date/Time: 07/28/2018 03:03:38 Reading Location: [facility] C013Y CT Body Reading Room TROPONIN [id number] 00:51:00 Test Item Value Reference Range Interpretation [...] acidosis, acute neurological disease, and persistent tachyarrhythmia.LIPID [id number] 00:48:00 Test Item Value Reference Range Interpretation [...] 100-129 Borderline 130-159 High 160-189 Very High >=[id number] 23:25:00 Test Item Value Reference Range Interpretation Comments MAGNESIUM (BEAKER) (test code = 1.8 mg/dL 1.6-2.6 627) TROPONIN [id number] 21:53:00 Test Item Value Reference Range Interpretation [...] acute neurological disease, and persistent tachyarrhythmia.HEPATIC FUNCTION [id number] 21:46:00 Test Item Value Reference Range Interpretation [...] = 16 U/L 6-55 347) BASIC METABOLIC [id number] 21:46:00 Test Item Value Reference Range Interpretation [...] NOT APPLICABLE FOR DIALYSIS PATIEN TS. PROTHROMBIN TIME/[id number] 21:36:00 Test Item Value Reference Range Interpretation Comments PROTIME (BEAKER) (test code = 14.1 seconds 11.7-14.7 759) INR (BEAKER) (test code = 370) 1.1 <=5.9 RECOMMENDED COUMADIN/WARFARIN INR THERAPY RANGESSTANDARD DOSE: 2.0 - 3.0 Includes: PROPHYLAXIS forvenous thrombosis, systemic embolization; TREATMENT for venous thrombosis and/or pulmonary embolus.HIGH RISK: Target INR is 2.5-3.5 for patients with mechanical heart valves.[id number] 21:35:00 Test Item Value Reference Range Interpretation [...]
[2020-05-04 13:31] LABS: Absolute Lymphocytes (CBC) 2.3 K/uL (0.7-4.9); Basophils % 1.1 % (0-1.3); Lymphocytes % 32.7 % (15.3-44.8); MPV 9.8 fL (7.6-11.3); RBC Red Blood Cell Count 4.27 M/uL (3.86-4.86)
[2020-05-04 13:32] LABS: Protime INR 1.12
[2020-05-04 13:46] LABS: ALT/SGPT 16 U/L (12-78); AST/SGOT 17 U/L (15-37); Albumin 3.6 g/dL (3.4-5.0); Alkaline Phosphatase 104 U/L (45-117); BUN Blood Urea Nitrogen 19 mg/dL (7-18); Bicarbonate 29 mmol/L (21-32); Bilirubin Direct < 0.1 mg/dL (0-0.2); Bilirubin Total 0.3 mg/dL (0.2-1.0); Glucose Level 96 mg/dL (74-106); Magnesium 1.9 mg/dL (1.8-2.4); NT PRO-BNP 81 pg/mL (<125); Potassium 3.4 mmol/L (3.5-5.1); Protein, Total 7.4 g/dL (6.4-8.2); Sodium Level 135 mmol/L (136-145); Troponin (Emerg Dept Use Only) < 0.02 ng/mL (0.0-0.045)
--- NOTE | 2020-05-04 13:50 | RAD REPORT ---
EXAM DESCRIPTION: Prasanth Single View05/04/2020 1:41 pm CLINICAL HISTORY: Chest pain COMPARISON: September 2019 FINDINGS: The lungs appear clear of acute infiltrate. The heart is mildly enlarged. Postsurgical changes involve the chest. IMPRESSION: No acute abnormalities displayed
[2020-05-04] MEDS ORDERED: HYDROCODONE/APAP 10/325 TAB ONE (14:25)
--- NOTE | 2020-05-04 16:28 | ER ---
Nurse's Notes [facility] Name: Anamika Diaz Age: 69 yrs Sex: Female : 1950 Arrival Date: 05/04/2020 Time: 12:21 Bed 3 Private MD: Diagnosis: Chest pain, unspecified Presentation: 05/04 12:33 Chief complaint: Patient states: indigestion x 4 days, no relief, chest tightness and dm5 dizziness since last night. Pt has cardiac history. Coronavirus screen: Client denies travel out of the [place] in the last 14 days. At this time, the client does not indicate any symptoms associated with coronavirus-19. Ebola Screen: Patient negative for fever greater than or equal to 101.5 degrees Fahrenheit, and additional compatible Ebola Virus Disease symptoms Patient denies exposure to infectious person. Patient denies travel to an Ebola-affected area in the 21 days before illness onset. No symptoms or risks identified at this time. Initial Sepsis Screen: Does the patient meet any 2 criteria? No. Patient's initial sepsis screen is negative. Does the patient have a suspected source of infection? No. Patient's initial sepsis screen is negative. Risk Assessment: Do you want to hurt yourself or someone else? Patient reports no desire to harm self or others. Onset of symptoms was May 03, 2020. 12:33 Method Of Arrival: Ambulatory dm5 12:33 Acuity: CARMEN 2 dm5 Historical: - Allergies: 12:36 Codeine; dm5 12:36 PENICILLINS (Hives); dm5 12:36 CYCLOBENZAPRINE (Vomiting); dm5 12:36 Levaquin; dm5 13:14 Levofloxacin (Vomiting); jl7 - Home Meds: 13:14 atorvastatin 20 mg Oral tab 1 tab once daily [Active]; fluoxetine 20 mg Oral cap jl7 [Active]; losartan-hydrochlorothiazide 100-25 mg oral tab 1 tab once daily [Active]; aspirin 81 mg Oral TbEC 1 tab once daily [Active]; - PMHx: 12:36 Hyperlipidemia; Hypertension; Vertigo; dm5 - PSHx: 12:36 double cardiac bypass; Carotid surgery; dm5 - Immunization history:: Adult Immunizations unknown. - Social history:: Smoking status: unknown. Screenin:00 Abuse screen: Denies threats or abuse. Denies injuries from another. Nutritional jl7 screening: No deficits noted. Tuberculosis screening: No symptoms or risk factors identified. Fall Risk IV access (20 points). Total Wright Fall Scale indicates No Risk (0-24 pts). Assessment: 13:10 General: Appears in no apparent distress. uncomfortable, Behavior is calm, cooperative, jl7 appropriate for age. Pain: Complains of pain in diaphragm Pain radiates to back Pain currently is 0 out of 10 on a pain scale. at worst was 3 out of 10 on a pain scale. Quality of pain is described as squeezing, Pain began 1 day ago. Is intermittent. Neuro: Level of Consciousness is awake, alert, obeys commands, Oriented to person, place, time, situation. Cardiovascular: Heart tones present Patient's skin is warm and dry. Rhythm is sinus bradycardia. Respiratory: Airway is patent Respiratory effort is even, unlabored, Respiratory pattern is regular, symmetrical. Derm: Skin is pink, warm \T\ dry. 14:00 Reassessment: Patient appears in no apparent distress at this time. No changes from jl7 previously documented assessment. Patient and/or family updated on plan of care and expected duration. Pain level reassessed. Patient is alert, oriented x 3, equal unlabored respirations, skin warm/dry/pink. 15:00 Reassessment: Patient appears in no apparent distress at this time. No changes from jl7 previously documented assessment. Patient and/or family updated on plan of care and expected duration. Pain level reassessed. Patient is alert, oriented x 3, equal unlabored respirations, skin warm/dry/pink. 16:00 Reassessment: Patient appears in no apparent distress at this time. No changes from jl7 previously documented assessment. Patient and/or family updated on plan of care and expected duration. Pain level reassessed. Patient is alert, oriented x 3, equal unlabored respirations, skin warm/dry/pink. Vital Signs: 12:33 BP 109 / 71; Pulse 69; Resp 20; Pulse Ox 100% on R/A; Weight 65.32 kg; Height 5 ft. 2 dm5 in. (157.48 cm); Pain 0/10; 14:15 BP 97 / 62; Pulse 58; Resp 15; Pulse Ox 100% ; jl7 16:00 BP 110 / 77; Pulse 55; Resp 17; Pulse Ox 100% ; jl7 12:33 Body Mass Index 26.34 (65.32 kg, 157.48 cm) 5 ED Course: 12:21 Patient arrived in ED. rg4 12:33 Satya Dumont MD is Attending Physician. kdr 12:35 Triage completed. dm5 12:59 James De La Cruz, RN is Primary Nurse. jl7 13:00 Patient maintains SpO2 saturation greater than 95% on room air. jl7 13:00 Patient has correct armband on for positive identification. Placed in gown. Bed in low jl7 position. Call light in reach. Side rails up X 1. compliance monitor on. Pulse ox on. NIBP on. Warm blanket given. 13:18 Initial lab(s) drawn, by me, sent to lab. Inserted saline lock: 20 gauge in right dh3 forearm, using aseptic technique. Blood collected. 13:45 XRAY Chest (1 view) In Process Unspecified. EDMS 17:00 No provider procedures requiring assistance completed. IV discontinued, intact, jl7 bleeding controlled, No redness/swelling at site. Pressure dressing applied. Administered Medications: No medications were administered Outcome: 16:27 Discharge ordered by . kdr 17:00 Discharged to home ambulatory, with family. jl7 17:00 Condition: stable 17:00 Discharge instructions given to patient, family, Instructed on discharge instructions, follow up and referral plans. Demonstrated understanding of instructions, follow-up care. 17:01 Patient left the ED. jl7 Signatures: Dispatcher [employer] EDMN Cary Hudson, SHERRI POLANCO 5 Satya Dumont MD MD kdr Garcia, Rubi [facility] James De La Cruz RN RN jl7 Cristina Cosme [facility]
--- NOTE | 2020-05-04 16:28 | EDPHYS ---
Physician Documentation [facility] Name: Anamika Diaz Age: 69 yrs Sex: Female : 1950 Arrival Date: 05/04/2020 Time: 12:21 Bed 3 Private MD: ED Physician Satya Dumont HPI: 05/04 17:10 This 69 yrs old Female presents to ER via Ambulatory with complaints of Chest kdr Tightness, Dizziness. 17:10 The patient or guardian reports chest pain that is located primarily in the substernal kdr area. Onset: gradually, 4 day(s) ago. The pain does not radiate. Associated signs and symptoms: Pertinent positives: cough, dizziness, Pertinent negatives: diaphoresis, headache, lower extremity pain, shortness of breath. The chest pain is described as aching, burning. Duration: The patient or guardian reports a single episode, that is still ongoing, but improving. Severity of pain: At its worst the pain was mild moderate this morning, in the emergency department the pain has improved moderately. The patient has not experienced similar symptoms in the past. Historical: - Allergies: 12:36 Codeine; dm5 12:36 PENICILLINS (Hives); dm5 12:36 CYCLOBENZAPRINE (Vomiting); dm5 12:36 Levaquin; dm5 13:14 Levofloxacin (Vomiting); jl7 - Home Meds: 13:14 atorvastatin 20 mg Oral tab 1 tab once daily [Active]; fluoxetine 20 mg Oral cap jl7 [Active]; losartan-hydrochlorothiazide 100-25 mg oral tab 1 tab once daily [Active]; aspirin 81 mg Oral TbEC 1 tab once daily [Active]; - PMHx: 12:36 Hyperlipidemia; Hypertension; Vertigo; dm5 - PSHx: 12:36 double cardiac bypass; Carotid surgery; dm5 - Immunization history:: Adult Immunizations unknown. - Social history:: Smoking status: unknown. ROS: 17:10 Constitutional: Negative for fever, chills, and weight loss, Eyes: Negative for injury, kdr pain, redness, and discharge, ENT: Negative for injury, pain, and discharge, Neck: Negative for injury, pain, and swelling, Respiratory: Negative for shortness of breath, cough, wheezing, and pleuritic chest pain, Abdomen/GI: Negative for abdominal pain, nausea, vomiting, diarrhea, and constipation, Back: Negative for injury and pain, : Negative for injury, bleeding, discharge, and swelling, MS/Extremity: Negative for injury and deformity, Skin: Negative for injury, rash, and discoloration, Neuro: Negative for headache, weakness, numbness, tingling, and seizure activity. Psych: Negative for depression, anxiety, suicide ideation, homicidal ideation, and hallucinations, Allergy/Immunology: Negative for hives, rash, and allergies, Endocrine: Negative for neck swelling, polydipsia, polyuria, polyphagia, and marked weight changes, Hematologic/Lymphatic: Negative for swollen nodes, abnormal bleeding, and unusual bruising. 17:10 Cardiovascular: Positive for chest pain, of the mid-sternal area, Negative for edema, orthopnea, palpitations, paroxysmal nocturnal dyspnea. Exam: 17:10 Constitutional: This is a well developed, well nourished patient who is awake, alert, kdr and in no acute distress. Head/Face: Normocephalic, atraumatic. Eyes: Pupils equal round and reactive to light, extra-ocular motions intact. Lids and lashes normal. Conjunctiva and sclera are non-icteric and not injected. Cornea within normal limits. Periorbital areas with no swelling, redness, or edema. Neck: Trachea midline, no thyromegaly or masses palpated, and no cervical lymphadenopathy. Supple, full range of motion without nuchal rigidity, or vertebral point tenderness. No Meningismus. Chest/axilla: Normal chest wall appearance and motion. Nontender with no deformity. No lesions are appreciated. Cardiovascular: Regular rate and rhythm with a normal S1 and S2. No gallops, murmurs, or rubs. Normal PMI, no JVD. No pulse deficits. Respiratory: Lungs have equal breath sounds bilaterally, clear to auscultation and percussion. No rales, rhonchi or wheezes noted. No increased work of breathing, no retractions or nasal flaring. Abdomen/GI: Soft, non-tender, with normal bowel sounds. No distension or tympany. No guarding or rebound. No evidence of tenderness throughout. Back: No spinal tenderness. No costovertebral tenderness. Full range of motion. Skin: Warm, dry with normal turgor. Normal color with no rashes, no lesions, and no evidence of cellulitis. MS/ Extremity: Pulses equal, no cyanosis. Neurovascular intact. Full, normal range of motion. Neuro: Awake and alert, GCS 15, oriented to person, place, time, and situation. Cranial nerves II-XII grossly intact. Motor strength 5/5 in all extremities. Sensory grossly intact. Cerebellar exam normal. Normal gait. Psych: Awake, alert, with orientation to person, place and time. Behavior, mood, and affect are within normal limits. Vital Signs: 12:33 BP 109 / 71; Pulse 69; Resp 20; Pulse Ox 100% on R/A; Weight 65.32 kg; Height 5 ft. 2 dm5 in. (157.48 cm); Pain 0/10; 14:15 BP 97 / 62; Pulse 58; Resp 15; Pulse Ox 100% ; jl7 16:00 BP 110 / 77; Pulse 55; Resp 17; Pulse Ox 100% ; jl7 12:33 Body Mass Index 26.34 (65.32 kg, 157.48 cm) dm5 MDM: 16:27 Patient medically screened. kdr 17:10 Data reviewed: vital signs, nurses notes, lab test result(s), radiologic studies. kdr Counseling: I had a detailed discussion with the patient and/or guardian regarding: the historical points, exam findings, and any diagnostic results supporting the discharge/admit diagnosis, lab results, radiology results, the need for outpatient follow up. 05/04 13:11 Order name: Basic Metabolic Panel; Complete Time: 14:05 kdr 05/04 13:11 Order name: CBC with Diff kdr 05/04 13:11 Order name: LFT's; Complete Time: 14:05 kdr 05/04 13:11 Order name: Magnesium; Complete Time: 14:05 kdr 05/04 13:11 Order name: NT PRO-BNP; Complete Time: 14:05 kdr 05/04 13:11 Order name: PT-INR kdr 05/04 13:11 Order name: Troponin (emerg Dept Use Only); Complete Time: 14:05 kdr 05/04 13:11 Order name: XRAY Chest (1 view); Complete Time: 14:05 kdr 05/04 13:11 Order name: EKG; Complete Time: 13:12 kdr 05/04 13:11 Order name: Cardiac monitoring; Complete Time: 13:16 kdr 05/04 13:11 Order name: EKG - Nurse/Tech; Complete Time: 13:16 kdr 05/04 13:31 Order name: CBC with Automated Diff; Complete Time: 14:05 EDGA 05/04 13:35 Order name: Protime (+INR); Complete Time: 14:05 EDGA 05/04 15:07 Order name: Troponin (emerg Dept Use Only) kdr 05/04 13:11 Order name: IV Saline Lock; Complete Time: 13:16 kdr 05/04 13:11 Order name: Labs collected and sent; Complete Time: 13:16 kdr 05/04 13:11 Order name: O2 Per Protocol; Complete Time: 13:16 kdr 05/04 13:11 Order name: O2 Sat Monitoring; Complete Time: 13:16 kdr Administered Medications: No medications were administered Disposition: 05/04/20 16:27 Discharged to Home. Impression: Chest pain, unspecified. - Condition is Stable. - Discharge Instructions: Nonspecific Chest Pain, [id number]. - Medication Reconciliation Form, Thank You Letter form. - Follow up: Private Physician; When: 2 - 3 days; Reason: If symptoms return, Further diagnostic work-up, Recheck today's complaints, Continuance of care, Re-evaluation by your physician. - Problem is new. - Symptoms have improved. Signatures: Dispatcher [employer] Cary Pinedo, RN RN dm5 Satya Dumont MD MD kdr James De La Cruz RN RN jl7 Corrections: (The following items were deleted from the chart) 17:01 16:27 05/04/2020 16:27 Discharged to Home. Impression: Chest pain, unspecified. jl7 Condition is Stable. Forms are Medication Reconciliation Form, Thank You Letter, Antibiotic Education, Prescription Opioid Use. Follow up: Private Physician; When: 2 - 3 days; Reason: If symptoms return, Further diagnostic work-up, Recheck today's complaints, Continuance of care, Re-evaluation by your physician. Problem is new. Symptoms have improved. kdr
--- NOTE | 2020-05-05 14:00 | EKG ---
Test Date: 2020-05-04 Test Time: 12:30:06 Production Welding Supervisor: IAN MEASUREMENT RESULTS: Intervals: Rate: 67 ID: [id number] QRSD: 74 QT: 412 QTc: 435 [place]: P: 54 ID: [id number] QRS: 16 T: -41 INTERPRETIVE STATEMENTS: Normal sinus rhythm Possible Left atrial enlargement ST & T wave abnormality, consider inferolateral ischemia Abnormal ECG Compared to ECG 07/24/2018 20:43:06 ST (T wave) deviation now present T-wave abnormality no longer present Possible ischemia still present Electronically Signed On 05-05-20 13:58:32 CHEF BROILER OR FRY by Shamar Green
[2020-05-07 15:26] VITALS: O2SAT 100
[2020-05-07 15:28] VITALS: BP 110/77
== END 2020-05-04 17:01 | disposition home or self-care (01) ==
LOC: ER 12:20
DX: R07.9 Chest pain, unspecified (principal); I10 Essential (primary) hypertension; E78.5 Hyperlipidemia, unspecified; Z95.1 Presence of aortocoronary bypass graft; Z79.82 Long term (current) use of aspirin; Z88.0 Allergy status to penicillin; Z88.1 Allergy status to other antibiotic agents; Z88.5 Allergy status to narcotic agent
CPT/HCPCS: 36415; 71045; 80048; 80076; 83735; 83880; 84484; 85025; 85610; 93005; 99285

== ENCOUNTER 2021-12-16 16:01 | Inpatient (IN) | payer OTHER ==
[2021-12-16] MEDS ORDERED: ASPIRIN 81 MG CHEWABLE TABLET ONE (18:22)
[2021-12-16 18:23] LABS: Absolute Lymphocytes (CBC) 2.5 K/uL (0.7-4.9); Hematocrit 38.6 % (36.0-45.0); Lymphocytes % 35.8 % (15.3-44.8); MPV 8.8 fL (7.6-11.3); RBC Red Blood Cell Count 4.15 M/uL (3.86-4.86)
[2021-12-16] MEDS ORDERED: LORazepam 2 MG/ML VIAL ONE (18:23)
[2021-12-16 18:24] LABS: Protime INR 1.15
[2021-12-16 18:37] LABS: ALT/SGPT 23 U/L (12-78); AST/SGOT 16 U/L (15-37); Albumin 3.7 g/dL (3.4-5.0); Alkaline Phosphatase 86 U/L (45-117); BUN Blood Urea Nitrogen 22 mg/dL (7-18); Bicarbonate 28 mmol/L (21-32); Bilirubin Total 0.2 mg/dL (0.2-1.0); Glomerular Filtration Rate 51 ml/min (=/>90); Glucose Level 95 mg/dL (74-106); Magnesium 2.3 mg/dL (1.8-2.4); NT PRO-BNP 265 pg/mL (<125); Potassium 3.8 mmol/L (3.5-5.1); Protein, Total 7.2 g/dL (6.4-8.2); Sodium Level 140 mmol/L (136-145); Troponin High Sensitivity 5.4 pg/mL (<58.9)
[2021-12-16 18:38] LABS: Bilirubin Direct < 0.1 mg/dL (0-0.2)
[2021-12-16 19:24] LABS: SARS-CoV-2 Antigen Rapid Res Negative (Negative)
[2021-12-16] MEDS ORDERED: MORPHINE 2 MG/ML SYR ONE (19:34)
--- NOTE | 2021-12-16 19:35 | RAD REPORT ---
EXAM DESCRIPTION: RAD - Chest Single View - 12/16/2021 7:27 pm CLINICAL HISTORY: CHEST PAIN Chest pain. COMPARISON: Chest Single View dated 05/04/2020; Chest Pa And Lat (2 Views) dated 09/29/2019; Chest Si ngle View dated 07/23/2018; Chest Single View dated 02/07/2017 FINDINGS: Portable technique limits examination quality. The lungs are grossly clear. The heart is mildly prominent with changes of a prior CABG. No displaced fractures. IMPRESSION: No acute intrathoracic process suspected.
[2021-12-16] MEDS ORDERED: ENOXAPARIN 60 MG/0.6 ML SQ ONE (21:18)
--- NOTE | 2021-12-16 21:29 | P.HP ---
Certification for Inpatient Patient admitted to: Inpatient With expected LOS: <2 Midnights Patient will require the following post-hospital care: None Practitioner: I am a practitioner with admitting privileges, knowledge of patient current condition, hospital course, and medical plan of care. Services: Services provided to patient in accordance with Admission requirements found in Title 42 Section 412.3 of the Code of Federal Regulations Patient History Date of Service: 12/16/21 Reason for admission: Unstable angina History of Present Illness: 71-year-old female with history of CAD status post CABG 2019, hypertension, hyperlipidemia presents the emergency department for chest pain, shortness of breath. She reports symptoms over the course of the last 3 days some with exertion, some at rest she reports that today her pain began radiating to her left jaw and was associated with shortness of breath pain is described as tightness/pressure. Story concerning for unstable angina initial troponin is negative EKG is without acute changes ED prior wishes to admit for further evaluation and management of unstable angina. Allergies codeine Allergy (Verified 09/29/19 11:30) AMS, nausea cyclobenzaprine Allergy (Verified 09/29/19 11:30) Unknown levofloxacin [From Levaquin] Allergy (Verified 09/29/19 11:30) N/V Penicillins Allergy (Verified 09/29/19 11:30) Anaphylaxis Home Medications: Atorvastatin Calcium 20 mg PO DAILY 07/25/18 Calcium Carbonate/Vitamin D3 [Calcium 600 with Vit D Chew Tb] 1,200 mg PO DAILY 07/25/18 Fluoxetine HCl 20 mg PO DAILY 07/25/18 lisinopriL [Lisinopril] 10 mg PO DAILY 07/25/18 - Past Medical/Surgical History Diabetic: No -: tobacco abuse -: HTN -: HLD -: Vertigo -: CAD -: CABG two-vessel 2018 Psychosocial/ Personal History: Patient lives at home with her family - Family History Mother -: Heart disease Father -: Heart disease - Social History Smoking Status: Current every day smoker Counseled patient to stop smoking for: less than 10 minutes Smoking therapy provided: Yes Alcohol use: No CD- Drugs: No Caffeine use: Yes Place of Residence: Home Review of Systems 10-point ROS is otherwise unremarkable Respiratory: Shortness of Breath, SOB with Excertion Cardiovascular: Chest Pain, As per HPI Physical Examination - Physical Exam General: Alert, In no apparent distress, Oriented x3 HEENT: Atraumatic, PERRLA, Mucous membr. moist/pink, EOMI, Sclerae nonicteric Neck: Supple, 2+ carotid pulse no bruit, No LAD, Without JVD or thyroid abnormality Respiratory: Clear to auscultation bilaterally, Normal air movement Cardiovascular: Regular rate/rhythm, Normal S1 S2 Gastrointestinal: Normal bowel sounds, No tenderness Musculoskeletal: No tenderness Integumentary: No rashes Neurological: Normal speech, Normal strength at 5/5 x4 extr, Normal tone, Normal affect - Studies Laboratory Data (last 24 hrs) 12/16/21 18:05: PT 12.7 H, INR 1.15 12/16/21 18:05: WBC 6.9, Hgb 13.2, Hct 38.6, Plt Count 217 12/16/21 18:05: Sodium 140, Potassium 3.8, BUN 22 H, Creatinine 1.15, Glucose 95, Magnesium 2.3, Total Bilirubin 0.2, AST 16, ALT 23, Alkaline Phosphatase 86 Assessment and Plan - Plan Assessment: Unstable anginahistory CAD S/P CABG Hypertension Hyperlipidemia Tobacco abuse Plan: Unstable anginahistory CAD S/P CABG: Monitor on telemetry, trend troponins, cardiology consult in place. N.p.o. for midnight in case of further diagnostic/intervention from cardiology. As needed morphine/nitroglycerin. Continue aspirin, statin. Appreciate further input from cardiology. Hypertension: Continue home medications, adjust as necessary. Hyperlipidemia: Continue home meds. Tobacco abuse: Counseled on need for tobacco cessation, will provide with NicoDerm patch as requested. DVT PPX: Full dose Lovenox Code status: Full Discharge Plan: Home Plan to discharge in: 48 Hours - Advance Directives Does patient have a Living Will: No Does patient have a Durable POA for Healthcare: No - Code Status/Comfort Care Code Status Assessed: Yes (Full code) Critical Care: No Time Spent Managing Pts Care (In Minutes): 70
[2021-12-16] MEDS ORDERED: ONDANSETRON 4 MG/2 ML VIAL IV PRN (21:41)
[2021-12-16] MEDS ORDERED: ATORVASTATIN 40 MG TAB PO SCH (21:41)
[2021-12-16] MEDS: ENOXAPARIN 60 MG/0.6 ML SQ SCH ×2 (21:41→23:30)
[2021-12-16] MEDS ORDERED: MORPHINE 2 MG/ML SYR IV PRN (21:41)
[2021-12-16] MEDS ORDERED: NITROGLYCERIN 0.4 MG/TAB SL PRN (21:41)
[2021-12-16] MEDS ORDERED: AMLODIPINE 10 MG TAB ONE (22:14)
[2021-12-16] MEDS ORDERED: ATORVASTATIN 20 MG TAB ONE (22:14)
[2021-12-16] MEDS: NICOTINE 14 MG/PAT TD SCH (23:21)
[2021-12-16] MEDS ORDERED: FENTANYL CITR 100 MCG/2 ML IV STA (23:32)
[2021-12-16 23:33] VITALS: BMI 24.9
[2021-12-17 04:41] LABS: Absolute Lymphocytes (CBC) 3.2 K/uL (0.7-4.9); Hematocrit 38.7 % (36.0-45.0); Lymphocytes % 40.9 % (15.3-44.8); MCV 93.6 fL (80-100); MPV 9.1 fL (7.6-11.3); RBC Red Blood Cell Count 4.13 M/uL (3.86-4.86)
[2021-12-17 04:59] LABS: Albumin 3.3 g/dL (3.4-5.0); Bilirubin Total 0.2 mg/dL (0.2-1.0); Potassium 4.5 mmol/L (3.5-5.1); Protein, Total 6.6 g/dL (6.4-8.2)
[2021-12-17] MEDS: NICOTINE 14 MG/PAT TD SCH (08:19)
--- NOTE | 2021-12-17 08:50 | EKG ---
Test Date: 2021-12-16 Test Time: 18:14:24 Running Rigger: TRINA MEASUREMENT RESULTS: Intervals: Rate: 51 AK: 138 QRSD: 78 QT: 442 QTc: 407 [place]: P: 72 AK: 138 QRS: 65 T: 22 INTERPRETIVE STATEMENTS: Sinus bradycardia Possible Left atrial enlargement Nonspecific T wave abnormality Abnormal ECG Compared to ECG 05/04/2020 12:30:06 T-wave abnormality now present Sinus rhythm no longer present ST (T wave) deviation no longer present Possible ischemia no longer present Electronically Signed On 12-17-21 08:47:05 CDT by Shamar Green
[2021-12-17] MEDS ORDERED: ASPIRIN EC 81 MG TAB PO SCH (09:00)
[2021-12-17] MEDS: ENOXAPARIN 60 MG/0.6 ML SQ SCH (09:00)
[2021-12-17] MEDS ORDERED: HEPA 1000U/500MLS 2,000 UNIT/1,000 ML BAG IV ONE (10:13)
--- OUTSIDE RECORDS SUMMARY | 2021-12-17 10:56 | XMS REPORT | Continuity of Care Document ---
:1950 Author Organization [facility] t Address [address] [place] [address] Dr. Florez [address] [place] [id number] Care Team Providers Name Role Phone GARY CRAWFORD Attending Clinician Unavailable JENNIFER Attending Clinician Unavailable IHDE_G Attending Clinician Unavailable Jorge A Attending Clinician Unavailable TANIKA HERRERA Attending Clinician Unavailable GARY CRAWFORD Admitting Clinician Unavailable JENNIFER Admitting Clinician Unavailable IHDE_G Admitting Clinician Unavailable Jorge A Admitting Clinician Unavailable TANIKA HERRERA Admitting Clinician Unavailable Payers Payer Name Policy Type Policy Number Effective Date Expiration Date S naya MEDICARE A B [id number] 2015 00:00:00 GENERIC MEDICARE [id number] 2016 SUPPLEMENT 00:00:00 CIGNA SUPPLEMENTAL - [id number] 2016 CIGNA HEALTH AND 00:00:00 LIFE INSURANCE (MEDICARE SUPPLEMENT) MEDICARE B-[place]: [id number] 2015 [employer] 00:00:00 MEDICARE A-[place]: [id number] 2015 [employer] - 00:00:00 [facility] [id number] Problems Condition Condition Condition Status Onset Resolution Last Treating Co mments Source Name Details Category Date Date Treatment Clinician Date Polyp of Polyp of Problem Active [place] colon Colon 7-29 da 00:[facility]: [facility] Occult Occult Problem Active [place] blood in Blood in 08 da stools Stools 00:00: [facility] Chronic Chronic Problem Active [place] kidney Kidney 1-07 da disease Disease 00:00: [facility] Prediabete Prediabete Problem Active [facility] [place] s s 1-07 da 00:00: [facility] Imaging of Imaging of Problem Active [facility] [place] lung Lung 1-05 da abnormal Abnormal 00:00: [facility] 00 al [facility] History of History of Problem Active [facility] [place] carotid Carotid 5-18 da endarterec Endarterec 00:00: [facility] rosalia rosalia 00 wa Health Outreac h Program Osteopenia Osteopenia Problem Active 2018-05 M [place] 2-14 da 00:00: [facility] 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 3-13 da bypass Bypass 00:00: [facility] grafts x 2 Grafts X 2 00 wa Health Outreac h Program Ex-smoker Ex-smoker Problem Active [facility] [place] 3-01 da 00:00: [facility] Depressive Depressive Problem Active [facility] disorder Disorder 1-04 da 00:00: [facility] Vertigo Vertigo Problem Active [place] 1-04 da 00:00: [facility] Hyperlipid Hyperlipid Problem Active M [facility] emia emia 9-27 da 00:00: [facility] Imaging Imaging Problem Active [place] result Result 1-13 da abnormal Abnormal 00:00: [facility] 00 wa [facility]re[facility] Program Allergies, Adverse Reactions, Alerts Allergy Allergy Status Severity Reaction(s) Onset Inactive Treating Comm ents Source Name Type Date Date Clinician CODEINE Allergy Active [facility] PENICILL Allergy Active High [facility]axis [facility] LEVOFLOX Allergy Active N\\T\\V [facility] Codeine Allergy Active [place] to da substanc [facility] Levaquin Allergy Active [place] to da substanc [facility] PENICILL Allergy Active [place] INS to da substanc [facility] Social History Smoking Status Start Date Stop Date Source Former Smoker [facility] Medications Ordered Filled Start Stop Current Ordering Indication Dosage Frequency Signature Comments Components Source Medication Medication Date Date Medication? Clinician (SIG) Name Name amlodipine amlodipine No 1capsul Q1D amlodipine [place] 10 10 e(s) 10 da mg-benazepr mg-benazepr mg-benazep [facility] il 20 mg il 20 mg ril 20 mg al capsule capsule capsule Health Take 1 Take 1 Take 1 Outreac capsule capsule capsule h every day every day every day Program by oral by oral by oral route. route. route. aspirin 81 aspirin 81 No 1 Q1D aspirin 81 [place] mg mg mg da tablet,ciara tablet,ciara tablet,del [facility] yed release yed release ayed a l Take 1 Take 1 release Health tablet tablet Take 1 Outreac every day every day tablet h by oral by oral every day Prog corie route. route. by oral route. Bactrim DS Bactrim DS No 1 Q12H Bactrim DS [place] 800 mg-160 800 mg-160 800 mg-160 da mg tablet mg tablet mg tablet [facility] Take 1 Take 1 Take 1 al tablet tablet tablet Health every 12 every 12 every 12 Out reac hours by hours by hours by h oral route oral route oral route Program for 7 days. for 7 days. for 7 days. Calcium 500 Calcium 500 No 1 Q1D Calcium [place] + D 500 + D 500 500 + D da mg-5 mcg mg-5 mcg 500 mg-5 Epi scop (200 unit) (200 unit) mcg (200 al tablet Take tablet Take unit) Health 1 tablet 1 tablet tablet Outre ac every day every day Take 1 h by oral by oral tablet Program route as route as every day directed. directed. by oral route as directed. fluoxetine fluoxetine No fluoxetine [place] 20 mg 20 mg 20 mg da capsule capsule capsule [facility] p TAKE 1 TAKE 1 TAKE 1 al CAPSULE BY CAPSULE BY CAPSULE BY Health MOUTH EVERY MOUTH EVERY MOUTH Outreac DAY DAY EVERY DAY h Program Multi Multi No Multi [place] Vitamin One Vitamin One Vitamin da tab daily. tab daily. One tab [facility] daily. al Health Outre[facility] Program peg peg No peg [place] 3350-electr 3350-electr 3350-elect da olytes 236 olytes 236 rolytes [facility] gram-22.74 gram-22.74 236 al gram-6.74 gram-6.74 gram-22.74 Health gram-5.86 gram-5.86 gram-6.74 Outreac gram gram gram-5.86 h solution solution gram Program TAKE 2000 TAKE 2000 solution ML TWICE A ML TWICE A TAKE 2000 DAY BY ORAL DAY BY ORAL ML TWICE A ROUTE FOR 1 ROUTE FOR 1 DAY BY DAY. DAY. ORAL ROUTE FOR 1 DAY. Pyridium Pyridium No 1 TID Pyridium [place] 200 mg 200 mg 200 mg da tablet Take tablet Take tablet [facility] 1 tablet 3 1 tablet 3 Take 1 a l times a day times a day tablet 3 Health by oral by oral times a Outrea c route as route as day by h needed. If needed. If oral route Program needed for needed for as needed. bladder bladder If needed pain pain for bladder pain rosuvastati rosuvastati No 1 Q1D rosuvastat [place] n 10 mg n 10 mg in 10 mg da tablet Take tablet Take tablet [facility] 1 tablet 1 tablet Take 1 al every day every day tablet Hea lth by oral by oral every day Outr eac route. route. by oral h route. Program amlodipine amlodipine No amlodipine [place] 10 10 10 da mg-benazepr mg-benazepr mg-benazep Medical il 20 mg il 20 mg ril 20 mg Gr oup capsule capsule capsule Take 1 Take 1 Take 1 capsule capsule capsule every day every day every day by oral by oral by oral route. route. route. aspirin 81 aspirin 81 No aspirin 81 [place] mg mg mg da tablet,ciara tablet,ciara tablet,del Medical yed release yed release ayed G roup Take 1 Take 1 release tablet tablet Take 1 every day every day tablet by oral by oral every day route. route. by oral route. Calcium 500 Calcium 500 No Calcium [place] + D 500 mg + D 500 mg 500 + D da (1,250 (1,250 500 mg Medical mg)-200 mg)-200 (1,250 Group unit tablet unit tablet mg)-200 Take 1 Take 1 unit tablet tablet tablet every day every day Take 1 by oral by oral tablet route as route as every day directed. directed. by oral route as directed. fluoxetine fluoxetine No fluoxetine [place] 20 mg 20 mg 20 mg da capsule capsule capsule Medica l TAKE 1 TAKE 1 TAKE 1 Group CAPSULE BY CAPSULE BY CAPSULE BY MOUTH ONCE MOUTH ONCE MOUTH ONCE DAILY DAILY DAILY rosuvastati rosuvastati No rosuvastat [place] n 10 mg n 10 mg in 10 mg da tablet Take tablet Take tablet Medical 1 tablet 1 tablet Take 1 Group every day every day tablet by oral by oral every day route. route. by oral route. Immunizations Ordered Immunization Filled Immunization Date Status Commen ts Source Name Name Influenza vaccine, Influenza vaccine, 2021-05-15 Completed [place] quadrivalent, quadrivalent, 12:08:51 [facility] adjuvanted adjuvanted [facility] COVID-19, mRNA, COVID-19, mRNA, 2020-08-04 Completed Pineda polly LNP-S, PF, 100 LNP-S, PF, 100 00:00:00 [facility] pal mcg/0.5 mL dose mcg/0.5 mL dose [facility] (Moderna) (Moderna) Program COVID-19, mRNA, COVID-19, mRNA, 2020-08-04 Completed Pineda polly LNP-S, PF, 100 LNP-S, PF, 100 00:00:00 Medica l Group mcg/0.5 mL dose mcg/0.5 mL dose COVID-19, mRNA, COVID-19, mRNA, 2020-07-05 Completed Pineda polly LNP-S, PF, 100 LNP-S, PF, 100 00:00:00 [facility] pal mcg/0.5 mL dose mcg/0.5 mL dose [facility] [place] [facility] (Moderna) (Moderna) Program COVID-19, mRNA, COVID-19, mRNA, 2020-07-05 Completed Pineda polly LNP-S, PF, 100 LNP-S, PF, 100 00:00:00 Medica l Group mcg/0.5 mL dose mcg/0.5 mL dose zoster recombinant zoster recombinant 2020-05-22 Completed [facility] 11:40:42 [facility] zoster recombinant zoster recombinant 2020-05-22 Completed [facility] 00:00:00 Medical Group influenza, influenza, 2020-01-17 Completed [facility] injectable, injectable, 00:00:00 [facility] quadrivalent quadrivalent Health Out reach Program influenza, influenza, 2020-01-17 Completed [facility] injectable, injectable, 00:00:00 Medical Grou p quadrivalent quadrivalent pneumococcal pneumococcal 2019-04-18 Completed [facility] polysaccharide PPV23 polysaccharide PPV23 09:47:59 [facility] pneumococcal pneumococcal 2019-04-18 Completed [facility] polysaccharide PPV23 polysaccharide PPV23 00:00:00 Medical Group influenza, influenza, 2019-02-15 Completed [facility] injectable, injectable, 00:00:00 [facility] quadrivalent quadrivalent Health Out reach Program influenza, influenza, 2019-02-15 Completed [facility] injectable, injectable, 00:00:00 Medical Grou p quadrivalent quadrivalent pneumococcal pneumococcal 2016-09-09 Completed [facility] conjugate PCV 13 conjugate PCV 13 00:00:00 Ep [facility]al [facility] Outreac [facility] Program pneumococcal pneumococcal 2016-09-09 Completed [facility] conjugate PCV 13 conjugate PCV 13 00:00:00 Me dical Group Tdap Tdap 2014-11-29 Completed [facility] 00:00:00 [facility] Tdap Tdap 2014-11-29 Completed [facility] 00:00:00 Medical Group zoster, unspecified zoster, unspecified 2001-05-18 Completed [facility] formulation formulation 00:00:00 [facility] zoster, unspecified zoster, unspecified 2001-05-18 Completed [facility] formulation formulation 00:00:00 Medical Grou p Vital Signs Vital Name Observation Time Observation Value Comments Source HEIGHT 2019-09-30 00:00:00 157.5 cm WEIGHT 2019-09-30 00:00:00 67.178 kg BP Diastolic 2021-07-13 00:00:00 71 mm[Hg] [place] [facility] Height 2021-07-13 00:00:00 60 [in_i] [facility] BMI (Body Mass 2021-07-13 00:00:00 26.6 kg/m2 [place] [facility] Denominational Index) [facility] Outreach Program BP Systolic 2021-07-13 00:00:00 123 mm[Hg] [place] [facility] Body Weight 2021-07-13 00:00:00 2176 [oz_av] [place] [facility] BP Diastolic 2021-05-15 00:00:00 70 mm[Hg] [place] [facility] Height 2021-05-15 00:00:00 60 [in_i] [place] [facility] BMI (Body Mass 2021-05-15 00:00:00 25.4 kg/m2 [facility] Denominational Index) [facility] Outreach Program BP Systolic 2021-05-15 00:00:00 107 mm[Hg] [place] [facility] Body Weight 2021-05-15 00:00:00 2080 [oz_av] [place] [facility] BP Diastolic 2021-03-26 00:00:00 66 mm[Hg] [place] [facility] Height 2021-03-26 00:00:00 62 [in_i] [place] [facility] BMI (Body Mass 2021-03-26 00:00:00 23.6 kg/m2 [facility] 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 BP Systolic 2021-03-26 00:00:00 120 mm[Hg] [facility] [facility] Body Weight 2021-03-26 00:00:00 129 [lb_av] [facility] BP Diastolic 2021-03-05 00:00:00 64 mm[Hg] [facility] Height 2021-03-05 00:00:00 62 [in_i] [facility] BMI (Body Mass 2021-03-05 00:00:00 23.6 kg/m2 [facility] 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 BP Systolic 2021-03-05 00:00:00 118 mm[Hg] [facility] Body Weight 2021-03-05 00:00:00 129 [lb_av] [facility] BP Diastolic 2021-01-08 00:00:00 58 mm[Hg] [facility] Height 2021-01-08 00:00:00 62 [in_i] [facility] BMI (Body Mass 2021-01-08 00:00:00 23.7 kg/m2 [place] 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 BP Systolic 2021-01-08 00:00:00 112 mm[Hg] [facility] [facility] Body Weight 2021-01-08 00:00:00 129.7 [lb_av] [facility] BP Diastolic 2021-01-01 00:00:00 60 mm[Hg] [place] [facility] Height 2021-01-01 00:00:00 60 [in_i] [place] [facility] BMI (Body Mass 2021-01-01 00:00:00 25 kg/m2 [place] [facility] Denominational Index) [facility] BP Systolic 2021-01-01 00:00:00 103 mm[Hg] [place] [facility] Body Weight 2021-01-01 00:00:00 2048 [oz_av] [place] [facility] BP Diastolic 2020 00:00:00 73 mm[Hg] [place] [facility] Height 2020 00:00:00 60 [in_i] [place] [facility] BMI (Body Mass 2020 00:00:00 25.7 kg/m2 [place] Denominational Index) [facility] BP Systolic 2020 00:00:00 109 mm[Hg] [place] [facility] Body Weight 2020 00:00:00 131.8 [lb_av] [place] [facility] BP Diastolic 2020-11-13 00:00:00 75 mm[Hg] [place] [facility] Height 2020-11-13 00:00:00 60 [in_i] [place] [facility] BMI (Body Mass 2020-11-13 00:00:00 25.6 kg/m2 [place] Denominational Index) [facility] BP Systolic 2020-11-13 00:00:00 118 mm[Hg] [place] [facility] Body Weight 2020-11-13 00:00:00 2096 [oz_av] [place] [facility] BP Diastolic 2020-10-25 00:00:00 70 mm[Hg] [place] [facility] Height 2020-10-25 00:00:00 60 [in_i] [place] [facility] BMI (Body Mass 2020-10-25 00:00:00 26.4 kg/m2 [place] Denominational Index) [facility] BP Systolic 2020-10-25 00:00:00 103 mm[Hg] [place] [facility] Body Weight 2020-10-25 00:00:00 2160 [oz_av] [place] [facility] BP Diastolic 2020-09-06 00:00:00 76 mm[Hg] [place] [facility] Height 2020-09-06 00:00:00 60 [in_i] [place] [facility] BMI (Body Mass 2020-09-06 00:00:00 27 kg/m2 [place] Denominational Index) [facility] BP Systolic 2020-09-06 00:00:00 110 mm[Hg] [place] [facility] Body Weight 2020-09-06 00:00:00 2208 [oz_av] [place] [facility] BP Diastolic 2020-05-22 00:00:00 69 mm[Hg] [place] [facility] Height 2020-05-22 00:00:00 60 [in_i] [place] [facility] BMI (Body Mass 2020-05-22 00:00:00 28.1 kg/m2 [place] Denominational Index) [facility] BP Systolic 2020-05-22 00:00:00 102 mm[Hg] [place] [facility] Body Weight 2020-05-22 00:00:00 2304 [oz_av] [place] [facility] WEIGHT 2019-10-18 00:00:00 65.772 kg HEIGHT 2019-10-18 00:00:00 157.5 cm BP Diastolic 2019-10-17 00:00:00 69 mm[Hg] [place] [facility] Height 2019-10-17 00:00:00 60 [in_i] [place] [facility] BMI (Body Mass 2019-10-17 00:00:00 28.3 kg/m2 [place] Denominational Index) [facility] BP Systolic 2019-10-17 00:00:00 103 mm[Hg] [facility] Body Weight 2019-10-17 00:00:00 2320 [oz_av] [facility] HEIGHT 2019-09-30 00:00:00 157.5 cm WEIGHT 2019-09-30 00:00:00 67.178 kg BP Diastolic 2019-04-18 00:00:00 80 mm[Hg] [facility] Height 2019-04-18 00:00:00 60 [in_i] [facility] BMI (Body Mass 2019-04-18 00:00:00 28.7 kg/m2 [place] Denominational Index) [facility] BP Systolic 2019-04-18 00:00:00 138 mm[Hg] [facility] Body Weight 2019-04-18 00:00:00 147 [lb_av] [facility] Procedures Procedure Date / Time Performing Clinician Source Performed LDCT, chest, for lung 2021-05-15 00:00:00 [place] [facility] cancer screening [facility] Outreach Program MAMMO, screening, 2020-11-13 00:00:00 [place] [facility] digital, bilateral Health Outrea Program MAMMO, diagnostic, 2020-11-13 00:00:00 [place] [facility] bilateral [facility]reach Program LDCT, chest, for lung 2020-09-06 00:00:00 [place] [facility] cancer screening [facility] Outreach Program LDCT, chest, for lung 2020-05-22 00:00:00 [place] [facility] cancer screening [facility] Outreach Program Carotid Endarterectomy 2019-10-03 00:00:00 [place] [facility] Endarterectomy 2019-09-30 00:00:00 Sammy [facility] Screening for Malignant 2019-04-22 00:00:00 Edwin matias [facility] Neoplasm of Colon Health Outreac h Program MAMMO, screening, 2019-04-18 00:00:00 Sammy [facility] digital, bilateral Health Outrea ch Program DXA BONE DENSITY, AXIAL 2019-04-18 00:00:00 Edwin matias [facility] Coronary Artery Bypass [facility] Grafts X 2 Group Reconstruction of Carotid [place] [facility] flusher Medical Artery Group Plan of Care Planned Activity Planned Date Details Comments Source Diagnostic Test 2021-07-13 urinalysis, [place] [facility] Pending 00:00:00 dipstick [code = Health Outr each urinalysis, Program dipstick] Diagnostic Test 2021-07-13 culture, urine [place] [facility] Pending 00:00:00 [code = culture, Health Outr each urine] Program Encounters Start End Encounter Admission Attending Care Care Encounter Source Date/Time Date/Time Type Type Clinicians Facility Department ID 2021-02-19 Inpatient [facility] Surgery [id number] [facility] 13:59:07 GARY 2021-12-09 2021-12-09 Outpatient SHIMEK_ALIA [facility] 73 [place] 11:06:00 11:06:00 _ANN 0725 [facility] 2021-11-08 2021-11-08 Outpatient SHIMMAXIMILIAN_ALIA [facility] 73 [place] 04:30:00 04:30:00 _ANN 0624 [facility] 2021-09-09 2021-09-09 Outpatient SHIMMAXIMILIAN_ALIA [facility] 73 [place] 06:49:00 06:49:00 _ANN 0602 [facility] 2021-07-14 2021-07-14 Outpatient SHIMEK_ALIA [facility] 73 [place] 10:02:00 10:02:00 _ANN 0227 [facility] 2021-07-13 2021-07-13 Outpatient SHIMEK_ALIA [facility] 73 [place] 10:05:00 10:05:00 _ANN 0226 [facility] 2021-07-13 2021-07-13 Alia [place] - [id number] [place] 00:00:00 00:00:00 Sammy Baker da SENIOR INVESTIGATOR: 1700 [facility] [address], [place], [place] Expansion Outre [id number] h , Ph. Program 2021-06-27 2021-06-27 Outpatient SHIMEK_ALIA [facility] 738 [place] 11:08:00 11:08:00 _ANN 0210 [facility] 2021-05-15 2021-05-15 Outpatient SHIMEK_ALIA [facility] 738 [place] 12:09:00 12:09:00 _ANN 1229 da [facility] 2021-05-15 2021-05-15 Alia [place] - [id number] [place] 00:00:00 00:00:00 Sammy Baker da SENIOR INVESTIGATOR: 1700 [facility] [place], [place] 3 [facility] [id number] h , Ph. Program 2021-05-04 2021-05-04 [facility] [id number] [place] 05:14:00 05:14:00 1218 da [facility] Group 2021-04-17 2021-04-17 Outpatient IHDE_G [facility] [id number] [place] 05:12:00 05:12:00 1201 [facility] Group 2021-03-26 2021-03-26 Outpatient IHDE_G [facility] [id number] [place] 03:18:00 03:18:00 1109 da Medical Group 2021-03-26 2021-03-26 Josiah [facility] [place] - [id number] M atagor 00:00:00 00:00:00 Andre Hobson MD: Medical Medica [address], [place] [address] , Ph. [phone] 2021-03-19 2021-03-19 Outpatient VITOREK_ALIA [place] [facility] 738 [place] 09:24:00 09:24:00 _ANN 1102 [facility] Program 2021-03-07 2021-03-07 [place]DE_[place] [id number] [place] 04:40:00 04:40:00 1103 da Medical Group 2021-03-05 2021-03-05 Outpatient IHDE_G MMG MMG [id number] [place] 11:06:00 11:06:00 1019 [facility] Group 2021-03-05 2021-03-05 Outpatient IHDE_G MMG MMG [id number] [place] 11:06:00 11:06:00 1020 [facility] Group 2021-03-05 2021-03-05 Outpatient IHDE_G MMG MMG [id number] [place] 11:06:00 11:06:00 1021 Medical Group 2021-03-05 2021-03-05 Josiah [facility] [place] - [id number] M atagor 00:00:00 00:00:00 Andre Hobson MD: Medical Medica l [address] [place] [address] 201, surgery [place] [address] , Ph. [phone] 2021-01-08 2021-01-08 [place] [id number] [place] 10:46:00 10:46:00 0824 da Medical Group 2021-01-08 2021-01-08 Josiah [facility] [place] - [id number] M at[place]or 00:00:00 00:00:00 Andre Hobson MD: Medical Medica l [address] [place] [address] [address], [place] [address] , Ph. [phone] 2021-01-04 2021-01-04 Outpatient IHDE_G MMG MMG [id number] [place] 11:50:00 11:50:00 0820 Medical Group 2021-01-01 2021-01-01 Outpatient [facility] 73 [place] 12:03:00 12:03:00 dquist 0817 [facility] 2021-01-01 2021-01-01 PreciousMel [place] - [id number] 7 [place] 00:00:00 00:00:00 Sammy Baker SENIOR INVESTIGATOR: 1700 [facility] [place], [place] 3 Outreac [id number] h , Ph. Program 2020-12-19 2020-12-19 Outpatient [facility] 73 [place] 05:02:00 05:02:00 dquist 0804 da [facility] 2020 2020 Outpatient [facility] 73 [place] 11:19:00 11:19:00 dquist 0719 [facility] 2020 2020 Dilan Smith [facility] [place] - [id number] [place] 00:00:00 00:00:00 Sammy Garcia MD: [id number] Denominational Epis messenger copy [place] [address] [place] [address] [facility] [id number] , Ph. 2020-11-13 2020-11-13 Outpatient [place] [id number] [place] 11:54:00 11:54:00 dquist 0629 [facility] 2020-11-13 2020-11-13 PreciousMel [place] - [id number] [place] 00:00:00 00:00:00 Sammy Baker SENIOR INVESTIGATOR: 1700 [facility] [place] 3 [place]ac [phone] h , Ph. Program 2020-10-25 2020-10-25 [facility] [place] 11:03:00 11:03:00 dquist 0610 [facility] 2020-10-25 2020-10-25 PreciousMel [place] - [id number] [place] 00:00:00 00:00:00 Sammy Baker da SENIOR INVESTIGATOR: 1700 [facility] [place] [facility] [place] [place] 3 Out[facility]ac [phone] h , Ph. Program 2020-09-06 2020-09-06 [facility] [place] 10:36:00 10:36:00 dquist 0422 [facility] 2020-09-06 2020-09-06 Alia NELSON [place] - [id number] 2 [place] 00:00:00 00:00:00 Sammy Baker da SENIOR INVESTIGATOR: [address] [facility] [place] [address] h , Ph. Program 2020-05-22 2020-05-22 Outpatient Dante [facility] [address] [place] 11:45:00 11:45:00 dquist [id number] [facility] 2020-05-22 2020-05-22 Alia NELSON [place] - [id number] 5 [place] 00:00:00 00:00:00 Sammy Baker da SENIOR INVESTIGATOR: [address] [facility] [address], [place] [address] h , Ph. Program 2019-10-18 2019-10-18 Outpatient KIANNA [facility] [id number] [facility] 00:00:00 00:00:00 GARY 2019-10-17 2019-10-17 [facility] [place] 11:23:00 11:23:00 dquist 0601 [facility] 2019-10-17 2019-10-17 Alia Montes [place] - [id number] 1 [place] 00:00:00 00:00:00 Sammy Baker SENIOR INVESTIGATOR: [address] [facility] [address], [place] [address] h , Ph. Program 2019-10-13 2019-10-13 [facility] [place] 01:07:00 01:07:00 dquist 0528 [facility] 2019-10-13 2019-10-13 [facility] [place] 01:07:00 01:07:00 dquist 0529 [facility] 2019-10-01 2019-10-01 Outpatient [facility] [id number] [facility] 00:00:00 00:00:00 2019-09-30 2019-09-30 Outpatient [facility] [id number] [facility] 00:00:00 00:00:00 2019-06-07 2019-06-07 [facility] 738 [place] 06:52:00 06:52:00 dquist 0121 [facility] 2019-04-18 2019-04-18 Alia Montes [place] - [id number] 2 [place] 00:00:00 00:00:00 Sammy Baker SENIOR INVESTIGATOR: [address] [facility] [address], [address] [address] Progr am , Ph. Results Test Description Test Time Test Comments Results Result Comments Source Urinalysis macro (dipstick) panel - Urine 2021-07-13 08:16:0 0 Test Item Value Reference Range Interpretation Comme nts Leukocytes (test code = Leukocytes) 3+ Nitrite (test code = Nitrite) - Urobilinogen (test code = Urobilinogen) - Protein (test code = Protein) +- pH (test code = pH) 7.0 Blood (test code = Blood) 3+ Specific Titus (test code = Specific Titus) 1.015 Ketone (test code = Ketone) - Bilirubin (test code = Bilirubin) - Glucose (test code = Glucose) - Appearance (test code = Appearance) clear Color (test code = Color) yellow [facility] [id number] 09:22:00 Test Item Value Reference Range Interpretation Comments Surgical pathology see emr pathology study (test code = report. 06269-5) [facility] W Auto Differential panel - [id number] 08:46:00 Test Item Value Reference Range Interpretation Comments white blood count (test code = 7.2 K/uL 4.0-11.5 white blood count) red blood count (test code = red 4.28 M/uL 3.80-5.20 blood count) hemoglobin (test code = 13.6 g/dL 10.5-15.7 hemoglobin) hematocrit (test code = 41.3 % 34.0-50.0 hematocrit) MCV [Entitic volume] (test code = 96.5 fL 86-100 12027-8) mean corpuscular hemoglobin (test 31.8 pg 26.2-33.4 code = mean corpuscular hemoglobin) mean corpuscular HGB conc (test 32.9 g/dL 30-34 code = mean corpuscular HGB conc) red cell distribution width (test 12.9 % 12.0-15.5 code = red cell distribution width) platelet count (test code = 252 K/uL 165-450 platelet count) mean platelet volume (test code = 10.8 fL 9.4-12.6 mean platelet volume) Segmented neutrophils/100 59.5 % 44.4-80.1 leukocytes in Blood (test code = 81539-5) Immature granulocytes [#/volume] 0.0 K/uL 0.0-0.03 in Blood (test code = 01979-9) lymphocyte% (test code = 28.5 % 10.0-50.0 lymphocyte%) mono % (test code = mono %) 7.9 % 3.6-12.0 eos % (test code = eos %) 2.5 % 0.0-5.4 Basophils/100 leukocytes in 1.2 % 0.1-1.2 Unspecified specimen (test code = 44898-9) Band form neutrophils [#/volume] 4.31 K/uL 1.56-6.13 in Blood (test code = 97699-4) Lymphocytes [#/volume] in 2.1 K/uL 1.18-3.74 Unspecified specimen by Automated count (test code = 54085-7) mono # (test code = mono #) 0.57 K/uL 0.24-0.86 eos # (test code = eos #) 0.18 K/uL 0.04-0.36 basophil # (test code = basophil 0.09 K/uL 0.01-0.08 H #) NRBC% (test code = NRBC%) 0 /100 WBC 0-0.2 NRBC# (test code = NRBC#) 0 K/uL [facility] unspecified - [id number] 08:46:00NeutrophilsBandLymphocyteAtypical LymphMonocyteEosinophilBasophilMetamyelocyteMyelocytePromyelocyteBlastsNucleated Red Blood CellAbs Neutrophil Count (Man)Abs Lymph Count (Man)Abs Monocyte Count (Man)Abs Eosinophil Count (Man)Abs Basophil Count (Man)Platelet Estimate [facility] 2000 panel - Serum or Plasma 2021-03-11 08:46:00 Test Item Value Reference Range Interpretation Comments Glucose [Mass/volume] in Serum or 86 mg/dL 82-115 Plasma (test code = 2345-7) Urea nitrogen [Mass/volume] in 22 mg/dL 8-23 Serum or Plasma (test code = 3094-0) osmolality calculated,serum (test 282 mOsm/kg 280-300 code = osmolality calculated,serum) creatinine (test code = 1.3 mg/dL 0.50-0.90 H creatinine) glomerular filtration rate (test 40.49 L code = glomerular filtration rate) Urea nitrogen/Creatinine [Mass 16.9 12-20 Ratio] in Serum or Plasma (test code = 3097-3) sodium level (test code = sodium 140 mmol/L 135-145 level) potassium level (test code = 4.4 mmol/L 3.5-5.2 potassium level) chloride level (test code = 103 mmol/L 98-108 chloride level) CO2 (test code = CO2) 26 mmol/L 21-32 anion gap (test code = anion gap) 15.4 mEq/L 12-20 calcium level (test code = 9.5 mg/dL 8.8-10.2 calcium level) total protein (test code = total 7.2 g/dL 6.6-8.7 protein) albumin (test code = albumin) 4.5 g/dL 3.5-5.2 globulin (test code = globulin) 2.7 gm/dL A/G ratio (test code = A/G ratio) 1.7 >1.0 bilirubin,total (test code = 0.3 mg/dL 0.0-1.2 bilirubin,total) AST/SGOT (test code = AST/SGOT) 16 U/L 15-32 Alanine aminotransferase 11 U/L 0-33 [Enzymatic activity/volume] in Serum or Plasma (test code = 1742-6) Alkaline phosphatase [Enzymatic 92 U/L 35-105 activity/volume] in Serum or Plasma (test code = 6768-6) [facility] - Serum or Plasma 2020-08-31 00:00:00 Test Item Value Reference Range Interpretation Comments Glucose [Mass/volume] in Serum 93 mg/dL 65-99 or Plasma (test code = 2345-7) Urea nitrogen [Mass/volume] in 25 mg/dL 8-27 Serum or Plasma (test code = 3094-0) Creatinine [Mass/volume] in 1.31 mg/dL 0.57-1.00 H Serum or Plasma (test code = 2160-0) Glomerular filtration 42 mL/min/1.73 >59 L rate/1.73 sq M.predicted among non-blacks [Volume Rate/Area] in Serum, Plasma or Blood by Creatinine-based formula (CKD-EPI) (test code = 23745-4) Glomerular filtration 48 mL/min/1.73 >59 L rate/1.73 sq M.predicted among blacks [Volume Rate/Area] in Serum, Plasma or Blood by Creatinine-based formula (CKD-EPI) (test code = 01248-2) Urea nitrogen/Creatinine [Mass 19 12-28 Ratio] in Serum or Plasma (test code = 3097-3) Sodium [Moles/volume] in Serum 138 mmol/L 134-144 or Plasma (test code = 2951-2) Potassium [Moles/volume] in 5.2 mmol/L 3.5-5.2 Serum or Plasma (test code = 2823-3) Chloride [Moles/volume] in 99 mmol/L 96-106 Serum or Plasma (test code = 2075-0) Carbon dioxide, total 25 mmol/L 20-29 [Moles/volume] in Serum or Plasma (test code = 2027-9) Calcium [Mass/volume] in Serum 9.7 mg/dL 8.7-10.3 or Plasma (test code = 13907-8) Protein [Mass/volume] in Serum 6.9 g/dL 6.0-8.5 or Plasma (test code = 2885-2) Albumin [Mass/volume] in Serum 4.5 g/dL 3.8-4.8 or Plasma (test code = 1751-7) Globulin [Mass/volume] in 2.4 g/dL 1.5-4.5 Serum by calculation (test code = 43902-5) Albumin/Globulin [Mass Ratio] 1.9 1.2-2.2 in Serum or Plasma (test code = 1759-0) Bilirubin.total [Mass/volume] 0.3 mg/dL 0.0-1.2 in Serum or Plasma (test code = 1975-2) Alkaline phosphatase 86 IU/L 39-117 [Enzymatic activity/volume] in Serum or Plasma (test code = 6768-6) Aspartate aminotransferase 16 IU/L 0-40 [Enzymatic activity/volume] in Serum or Plasma (test code = 1920-8) Alanine aminotransferase 11 IU/L 0-32 [Enzymatic activity/volume] in Serum or Plasma (test code = 1742-6) [facility] [id number] 00:00:00 Test Item Value Reference Range Interpretation Comments Report (test code = 34769-1) note Interpretation and review of laboratory . results (test code = 25987-5) [facility] ProgramTISSUE [id number] 12:51:00 Surgical Pathology Report Case: [id number] Authorizing Provider: Gary Crawford, Collected: 10/04/2019 08:59 AM Ordering Location: [facility] Received: 10/04/2019 10:13 AM PERIOPERATIVE SERVICES Pathologist: Augusto Silva MD Specimen: Plaque, CAROTID PLAQUE ARTERY, LEFT CAROTID, ENDAR TERECTOMY:CALCIFIC ATHEROSCLEROTIC PLAQUE WITH INTRAPLAQUE HEMORRHAGE Signing Pathologist Direct Phone Line: [phone] signed by Augusto Silva MD on 10/23/2019 at 12:51 [id number]; [id number] diagnosis: Carotid stenosis, leftPlaque Received in formalin labeled with the patient's name, accession number and "carotid plaque" is a 2.5 cm in length x 0.5 cm in diameter baires- yellow bifurcated, tubular piece of focally calcified plaque. Label Paster sections are submitted in A1 following decalcification. PA/pl PerformedCBC W/PLT COUNT & AUTO [id number] 04:57:00 Test Item Value Reference Range Interpretation [...] 0-1 PERCENT (BEAKER) (test code = 2801) BASIC METABOLIC [id number] 04:56:00 Test Item Value Reference Range Interpretation [...] S NOT APPLICABLE FOR DIALYSIS PATIEN TS. 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 - TIP [id number] 06:36:00 Test Item Value Reference Range Interpretation Comments PARTIAL THROMBOPLASTIN TIME 30.2 seconds 22.5-36.0 (BEAKER) (test code = 760) PROTHROMBIN [id number] 06:35:00 Test Item Value Reference Range Interpretation [...] is 2.5-3.5 for patients wiht mechanical heart valves.CBC W/PLT COUNT & AUTO [id number] 06:19:00 Test Item Value Reference Range Interpretation [...] 0-1 PERCENT (BEAKER) (test code = 2801) SARS-COV2/RT-PCR ([facility])2019-10-02 16:08:00 Test Item Value Reference Range Interpretation Comments SARS-COV2/RT-PCR (test code = Negative Not Detected, Negative 7176584) SARS-COV-2 PERFORMING LAB CPL (test code = 9240444) BASIC METABOLIC [id number] 08:37:00 Test Item Value Reference Range Interpretation [...] WBC 0-0 (BEAKER) (test code = 413) [id number] 05:16:00 Test Item Value Reference Range Interpretation Comments MAGNESIUM (BEAKER) (test code = 2.1 mg/dL 1.6-2.6 627) BASIC METABOLIC [id number] 05:16:00 Test Item Value Reference Range Interpretation [...] 0-0 (BEAKER) (test code = 413) CT, [id number] 03:48:00FINAL REPORT CLINICAL HISTORY: Abnormal abdominal x-ray, concern for ascites versus abdominal mass displacing bowel loops FINDINGS: Multiple [...] findings. Pancreas: No significant findings. Bowel: No significant findings. Appendix: Normal. Bladder: No significant findings. Major vascular structures: Atherosclerotic calcifications Reproductive organs: No significant findings. Other: No abdominal mass. No ascites. No free intraperitoneal air. Skeleton: No acute bony abnormality. IMPRESSION: No CT abnormality to explain the findings on recent abdominal x-ray. Specifically, there is no abdominal mass or ascites. Mil d hepatomegaly. Small to moderate bilateral pleural effusions with adjacent atelectasis versus pneumonitis. Signed: Ramu Jimenez MDReport Verified Date/Time: 08/03/2018 03:48:58 Reading Location: [address] Reading Room RAD, ABDOMEN/KUB, 1 VIEW [id number] 14:26:00Reason for exam:->abdominal distension, nauseaFINAL REPORT EXAM: AP abdominal radiograph, [...] abdominal mass is not completely excluded. Consider aCT of the abdomen and pelvis for further evaluation. While no definite free air is seen, this examina tion is insensitive for the detection of free air. No acute osseous abnormality. Degenerative changes of the spine and hips are noted. Signed: Judith Amanda MDReport Verified Date/Time: 08/02/201814:26:34 Reading Location: [facility] Reading Room Electronically signed by: JUDITH AMANDA on08/02/2018 02:26 PM [id number] 05:13:00 Test Item Value Reference Range Interpretation Comments MAGNESIUM (BEAKER) (test code = 1.8 mg/dL 1.6-2.6 627) BASIC METABOLIC [id number] 05:13:00 Test Item Value Reference Range Interpretation [...] WBC 0-0 (BEAKER) (test code = 413) [id number] 05:56:00 Test Item Value Reference Range Interpretation Comments MAGNESIUM (BEAKER) (test code = 2.0 mg/dL 1.6-2.6 627) BASIC METABOLIC [id number] 05:56:00 Test Item Value Reference Range Interpretation [...] (BEAKER) (test code = 413) BASIC METABOLIC [id number] 04:46:00 Test Item Value Reference Range Interpretation [...] 697) EGFR (BEAKER) (test 76 mL/min/1.73 ESTIMA EVSNA GFR IS code = 1092) sq m [...] WBC 0-0 (BEAKER) (test code = 413) [id number] 08:08:00 Test Item Value Reference Range Interpretation Comments MAGNESIUM (BEAKER) (test code = 1.9 mg/dL 1.6-2.6 627) BASIC METABOLIC [id number] 08:08:00 Test Item Value Reference Range Interpretation [...] = 413) RAD, CHEST, 1 VIEW, NON [id number] 08:21:00while patient is intubated or has chest tubes.Reason for exam:->Status post CV SurgeryShould thisbe performed at the bedside?->YesFINAL REPORT CLINICAL HISTORY: Status post CV Surgery TECHNIQUE: 1 view of the chest. COMPARISON: 07/28/2018 IMPRESSION: The supporting lines and tubes are unchanged. There is no pne umothorax. Lower lung opacities are unchanged. The cardiomediastinal silhouette is magnified by technique with sternotomy wires. Signed: Gege Barba MDReport Verified Date/Time: 07/29/2018 08:21:09 Reading Location: [facility] Radiology Reading Room [id number] 06:05:00 Test Item Value Reference Range Interpretation Comments PHOSPHORUS (BEAKER) (test code = 4.2 mg/dL 2.3-4.7 604) [id number] 06:05:00 Test Item Value Reference Range Interpretation Comments MAGNESIUM (BEAKER) (test code = 1.9 mg/dL 1.6-2.6 627) BASIC METABOLIC [id number] 06:05:00 Test Item Value Reference Range Interpretation [...] (BEAKER) (test code = 413) BLOOD GAS, [id number] 04:06:00 Test Item Value Reference Range Interpretation [...] code = 1819) 28.0 % BLOOD GAS, [id number] 00:33:00 Test Item Value Reference Range Interpretation [...] (test code = 1819) 40.0 % GLUCOSE-STAT [id number] 00:33:00 Test Item Value Reference Range Interpretation Comments GLUCOSE RANDOM (BEAKER) (test code 134 mg/dL 70-110 H = 652) HGB/HCT (H&H) - STAT [id number] 00:33:00 Test Item Value Reference Range Interpretation Comments HEMOGLOBIN (BEAKER) (test code = 8.6 g/dL 12.0-15.0 L 410) HEMATOCRIT (BEAKER) (test code = 25.0 % 36.0-45.0 L 411) RAD, CHEST, 1 VIEW, NON [id number] 23:32:00Reason for exam:->respiratory insufficencyShould this be performed at the bedside?->YesFINAL REPORT RAD, CHEST, 1 VIEW, NON DEPT INDICATION: respiratory insufficency C OMPARISON: Same day's examination FINDINGS: Portable frontal view [...] pneumothorax. Heart and mediastinum: Stable contours. Stable surgicalchanges.Additional findings: None. Signed: Carlita Nieves Verified Date/Time: 07/28/2018 23:32:13 Reading Location: [address] Transitional Reading Room LACTIC ACID, ARTERIAL 2018-07-28 22:20:00 Test Item Value Reference Range Interpretation Comments LACTATE BLOOD ARTERIAL (2) 1.0 mmol/L 0.5-2.2 (BEAKER) (test code = 2874) BLOOD GAS, [id number] 22:08:00 Test Item Value Reference Range Interpretation [...] 1819) 36.0 % HGB/HCT (H&H) - STAT [id number] 22:08:00 Test Item Value Reference Range Interpretation Comments HEMOGLOBIN (BEAKER) (test code = 8.5 g/dL 12.0-15.0 L 410) HEMATOCRIT (BEAKER) (test code = 25.0 % 36.0-45.0 L 411) LACTIC ACID, [id number] 20:37:00 Test Item Value Reference Range Interpretation Comments LACTATE BLOOD 1.8 mmol/L 0.5-2.2 Specimen sligh tly ARTERIAL (2) (BEAKER) hemoly zed (test code = 2874) SODIUM NA-STAT [id number] 20:14:00 Test Item Value Reference Range Interpretation Comments SODIUM (BEAKER) (test code = 381) 139 meq/L 135-148 POTASSIUM-STAT [id number] 20:14:00 Test Item Value Reference Range Interpretation Comments POTASSIUM (BEAKER) (test code = 3.5 meq/L 3.6-5.5 L 379) GLUCOSE-STAT [id number] 20:14:00 Test Item Value Reference Range Interpretation Comments GLUCOSE RANDOM (BEAKER) (test code 128 mg/dL 70-110 H = 652) BLOOD GAS, [id number] 20:14:00 Test Item Value Reference Range Interpretation [...] 1819) 40.0 % HGB/HCT (H&H) - STAT [id number] 20:14:00 Test Item Value Reference Range Interpretation Comments HEMOGLOBIN (BEAKER) (test code = 9.2 g/dL 12.0-15.0 L 410) HEMATOCRIT (BEAKER) (test code = 27.0 % 36.0-45.0 L 411) HEMOGLOBIN [id number] 17:32:00 Test Item Value Reference Range Interpretation Comments HEMOGLOBIN A1C (BEAKER) (test code = 5.8 % 4.3-6.1 368) HEMOGLOBIN [id number] 17:00:00 Test Item Value Reference Range Interpretation Comments HEMOGLOBIN A1C (BEAKER) (test code = 5.8 % 4.3-6.1 368) RAD, CHEST, 1 VIEW, NON [id number] 16:44:00Reason for exam:->Status post CV Surgery post [...] An endotracheal tube projects approximately 4.2 cm above the kitty. A nasogastric tube projects with the tip in the distal esophagus or GE junction. This could be advanced. Left-sided chest tube/ mediastinal drain drain noted. A right internal jugular centralline seen with tip in the SVC. Signed: Jerrod Hendrickson MDReport Verified Date/Time: 07/28/2018 16:44:35 Reading Location: [facility] Radiology Reading Room [id number] 16:26:00 Test Item Value Reference Range Interpretation Comments MAGNESIUM (BEAKER) 2.8 mg/dL 1.6-2.6 H Specimen slightly (test code = 627) hemolyzed [id number] 16:26:00 Test Item Value Reference Range Interpretation Comments PHOSPHORUS (BEAKER) 3.4 mg/dL 2.3-4.7 Specimen slightly (test code = 604) hemolyzed [id number] 16:26:00 Test Item Value Reference Range Interpretation Comments POTASSIUM (BEAKER) 4.3 meq/L 3.5-5.1 Specimen slightly (test code = 379) hemolyzed [id number] 16:26:00 Test Item Value Reference Range Interpretation Comments GLUCOSE RANDOM (BEAKER) (test code 104 mg/dL 70-105 = 652) BASIC METABOLIC [id number] 16:26:00 Test Item Value Reference Range Interpretation [...] APPLICABLE FOR DIALYSIS PATIEN TS. LACTIC ACID, [id number] 16:24:00 Test Item Value Reference Range Interpretation Comments LACTATE BLOOD 0.9 mmol/L 0.5-2.2 Specimen sligh tly ARTERIAL (2) (BEAKER) hemoly zed (test code = 2874) [id number] 16:20:00 Test Item Value Reference Range Interpretation Comments FIBRINOGEN LEVEL (BEAKER) (test 237 mg/dl 225-434 code = 658) [id number] 16:20:00 Test Item Value Reference Range Interpretation Comments PROTIME (BEAKER) (test code = 18.4 seconds 11.7-14.7 H 759) INR (BEAKER) (test code = 370) 1.5 <=5.9 PARTIAL THROMBOPLASTIN TIME 34.8 seconds 22.5-36.0 (BEAKER) (test code = 760) RECOMMENDED COUMADIN/WARFARIN INR THERAPY RANGESSTANDARD DOSE: 2.0 - 3.0 Includes: PROPHYLAXIS for venous thrombosis, systemic embolization; TREATMENT for venous thrombosis and/or pulmonary embolus.HIGH RISK: Target INR is 2.5-3.5 for patients with mechanical heart valves.PROTHROMBIN [id number] 16:19:00 Test Item Value Reference Range Interpretation Comments PROTIME (BEAKER) (test code = 18.4 seconds 11.7-14.7 H 759) INR (BEAKER) (test code = 370) 1.5 <=5.9 RECOMMENDED COUMADIN/WARFARIN INR THERAPY RANGESSTANDARD DOSE: 2.0 - 3.0 Includes: PROPHYLAXIS for venous thrombosis, systemic embolization; TREATMENT for venous thrombosis and/or pulmonary embolus.HIGH RISK: Target INR is 2.5-3.5 for patients with mechanical heart valves.CBC W/PLT COUNT & AUTO [id number] 16:11:00 Test Item Value Reference Range Interpretation [...] (BEAKER) (test code = 2801) OXYGEN SATURATION, [id number] 16:07:00 Test Item Value Reference Range Interpretation Comments O2 SATURATION (MEASURED) (BEAKER) 61.6 % (test code = 1455) BLOOD GAS, [id number] 16:07:00 Test Item Value Reference Range Interpretation [...] (test code = 1819) 50.0 % CALCIUM, [id number] 16:07:00 Test Item Value Reference Range Interpretation Comments CALCIUM IONIZED (BEAKER) (test 1.16 mmol/L 1.12-1.27 code = 698) PH, BLOOD (BEAKER) (test code = 7.54 1810) BLOOD GAS, [id number] 14:29:00 Test Item Value Reference Range Interpretation [...] (test code = 1819) 100.0 % GLUCOSE-STAT [id number] 14:29:00 Test Item Value Reference Range Interpretation Comments GLUCOSE RANDOM (BEAKER) (test code 126 mg/dL 70-110 H = 652) HGB/HCT (H&H) - STAT [id number] 14:29:00 Test Item Value Reference Range Interpretation Comments HEMOGLOBIN (BEAKER) (test code = 9.4 g/dL 12.0-15.0 L 410) HEMATOCRIT (BEAKER) (test code = 28.0 % 36.0-45.0 L 411) CALCIUM, [id number] 14:29:00 Test Item Value Reference Range Interpretation Comments CALCIUM IONIZED (BEAKER) (test 1.10 mmol/L 1.12-1.27 L code = 698) PH, BLOOD (BEAKER) (test code = 7.47 1810) SODIUM NA-STAT [id number] 14:28:00 Test Item Value Reference Range Interpretation Comments SODIUM (BEAKER) (test code = 381) 137 meq/L 135-148 POTASSIUM-STAT [id number] 14:28:00 Test Item Value Reference Range Interpretation Comments POTASSIUM (BEAKER) (test code = 4.7 meq/L 3.6-5.5 379) SODIUM NA-STAT [id number] 14:03:00 Test Item Value Reference Range Interpretation Comments SODIUM (BEAKER) (test code = 381) 136 meq/L 135-148 POTASSIUM-STAT [id number] 14:03:00 Test Item Value Reference Range Interpretation Comments POTASSIUM (BEAKER) (test code = 5.4 meq/L 3.6-5.5 379) BLOOD GAS, [id number] 14:03:00 Test Item Value Reference Range Interpretation [...] (test code = 1819) 75.0 % GLUCOSE-STAT [id number] 14:03:00 Test Item Value Reference Range Interpretation Comments GLUCOSE RANDOM (BEAKER) (test code 141 mg/dL 70-110 H = 652) HGB/HCT (H&H) - STAT [id number] 14:03:00 Test Item Value Reference Range Interpretation Comments HEMOGLOBIN (BEAKER) (test code = 8.9 g/dL 12.0-15.0 L 410) HEMATOCRIT (BEAKER) (test code = 26.0 % 36.0-45.0 L 411) BLOOD GAS, [id number] 13:55:00 Test Item Value Reference Range Interpretation [...] (test code = 1819) 65.0 % GLUCOSE-STAT [id number] 13:55:00 Test Item Value Reference Range Interpretation Comments GLUCOSE RANDOM (BEAKER) (test code 166 mg/dL 70-110 H = 652) HGB/HCT (H&H) - STAT [id number] 13:55:00 Test Item Value Reference Range Interpretation Comments HEMOGLOBIN (BEAKER) (test code = 8.2 g/dL 12.0-15.0 L 410) HEMATOCRIT (BEAKER) (test code = 24.0 % 36.0-45.0 L 411) BLOOD GAS, [id number] 13:54:00 Test Item Value Reference Range Interpretation [...] code = 1819) 65.0 % SODIUM NA-STAT [id number] 13:50:00 Test Item Value Reference Range Interpretation Comments SODIUM (BEAKER) (test code = 381) 135 meq/L 135-148 POTASSIUM-STAT [id number] 13:50:00 Test Item Value Reference Range Interpretation Comments POTASSIUM (BEAKER) (test code = 4.3 meq/L 3.6-5.5 379) BLOOD GAS, [id number] 12:49:00 Test Item Value Reference Range Interpretation [...] (test code = 1819) 100.0 % GLUCOSE-STAT [id number] 12:49:00 Test Item Value Reference Range Interpretation Comments GLUCOSE RANDOM (BEAKER) (test code 114 mg/dL 70-110 H = 652) SODIUM NA-STAT [id number] 12:48:00 Test Item Value Reference Range Interpretation Comments SODIUM (BEAKER) (test code = 381) 137 meq/L 135-148 POTASSIUM-STAT [id number] 12:48:00 Test Item Value Reference Range Interpretation Comments POTASSIUM (BEAKER) (test code = 3.6 meq/L 3.6-5.5 379) HGB/HCT (H&H) - STAT [id number] 12:48:00 Test Item Value Reference Range Interpretation Comments HEMOGLOBIN (BEAKER) (test code = 12.4 g/dL 12.0-15.0 410) HEMATOCRIT (BEAKER) (test code = 36.0 % 36.0-45.0 411) [id number] 07:19:00 Test Item Value Reference Range Interpretation Comments MAGNESIUM (BEAKER) (test code = 1.9 mg/dL 1.6-2.6 627) BASIC METABOLIC [id number] 07:19:00 Test Item Value Reference Range Interpretation [...] NOT APPLICABLE FOR DIALYSIS PATIEN TS. LIPID [id number] 07:19:00 Test Item Value Reference Range Interpretation Comments TRIGLYCERIDES (BEAKER) (test code = 101 mg/dL 540) CHOLESTEROL (BEAKER) (test code = 181 mg/dL 631) HDL CHOLESTEROL (BEAKER) (test code 60 mg/dL = 976) LDL CHOLESTEROL CALCULATED (BEAKER) 101 mg/dL (test code = 633) Triglyceride Reference Range: Low Risk <150 Borderline 150-199 High Risk 200- 499 Very High Risk >=500Cholesterol Reference Range: Low Risk <200 Borderline 200-239 High Risk >240HDL Cholesterol Reference Range: Low Risk >=60 High Risk <40LDL Cholesterol Reference Range: Optimal <100 Near Optimal 100-129 Borderline 130-159 High 160-189 Very High >=190TROPONIN I 2018-07-28 07:04:00 Test Item Value Reference Range Interpretation [...] failure, acidosis, acute neurological disease, and persistent tachyarrhythmia.[id number] 06:39:00 Test Item Value Reference Range Interpretation [...] = 413) RAD, CHEST, 1 VIEW, NON [id number] 03:03:00Reason for exam:->Pre-Op ScreeningShould this be performed at the bedside?->YesFINAL REPORT Chest one view. Clinical history: Pre-Op Screening Comparison: None . Technique: A single frontal view of the chest was obtained. Findings: The heart is normal in size.The aorta is atherosclerotic. There is no focal pulmonary consolidation, pleural effusion or pneumothorax. There is no pulmonary edema. The bony thorax is unremarkable. Impression:Atherosclerotic aorta.No focal pulmonary consolidation. Signed: Regis Mishra MDReport Verified Date/Time: 07/28/2018 03:03:38 Reading Location: [facility] C013Y CT Body Reading Room ONIN [id number] 00:51:00 Test Item Value Reference Range Interpretation [...] acidosis, acute neurological disease, and persistent tachyarrhythmia.LIPID [id number] 00:48:00 Test Item Value Reference Range Interpretation Comments TRIGLYCERIDES (BEAKER) (test code = 103 mg/dL 540) CHOLESTEROL (BEAKER) (test code = 168 mg/dL 631) HDL CHOLESTEROL (BEAKER) (test code 57 mg/dL = 976) LDL CHOLESTEROL CALCULATED (BEAKER) 90 mg/dL (test code = 633) Triglyceride Reference Range: Low Risk <150 Borderline 150-199 High Risk 200- 499 Very High Risk >=500Cholesterol Reference Range: Low Risk <200 Borderline 200-239 High Risk >240HDL Cholesterol Reference Range: Low Risk >=60 High Risk <40LDL Cholesterol Reference Range: Optimal <100 Near Optimal 100-129 Borderline 130-159 High 160-189 Very High >=190MAGNESIUM 2018-07-27 23:25:00 Test Item Value Reference Range Interpretation Comments MAGNESIUM (BEAKER) (test code = 1.8 mg/dL 1.6-2.6 627) TROPONIN [id number] 21:53:00 Test Item Value Reference Range Interpretation [...] acute neurological disease, and persistent tachyarrhythmia.HEPATIC FUNCTION [id number] 21:46:00 Test Item Value Reference Range Interpretation [...] = 16 U/L 6-55 347) BASIC METABOLIC [id number] 21:46:00 Test Item Value Reference Range Interpretation [...] NOT APPLICABLE FOR DIALYSIS PATIEN TS. PROTHROMBIN TIME/[id number] 21:36:00 Test Item Value Reference Range Interpretation Comments PROTIME (BEAKER) (test code = 14.1 seconds 11.7-14.7 759) INR (BEAKER) (test code = 370) 1.1 <=5.9 RECOMMENDED COUMADIN/WARFARIN INR THERAPY RANGESSTANDARD DOSE: 2.0 - 3.0 Includes: PROPHYLAXIS for venous thrombosis, systemic embolization; TREATMENT for venous thrombosis and/or pulmonary embolus.HIGH RISK: Target INR is 2.5-3.5 for patients with mechanical heart valves.[id number] 21:35:00 Test Item Value Reference Range Interpretation [...]
[2021-12-17] MEDS ORDERED: FENTANYL CITR 100 MCG/2 ML ONE (13:06)
[2021-12-17] MEDS ORDERED: HEPARIN 5000 UNIT/ML 1 ML VIAL ONE (13:06)
[2021-12-17] MEDS ORDERED: MIDAZOLAM HCL 2 MG/2 ML INJ ONE (13:06)
[2021-12-17] MEDS ORDERED: ASPIRIN 325 MG TAB ONE ×2 (13:07→14:39)
[2021-12-17] MEDS ORDERED: VERAPAMIL HCL 10 MG/4 ML VIAL IV ONE (13:07)
[2021-12-17] MEDS ORDERED: HEPARIN 10,000 UNIT/10 ML VIAL IV ONE (13:07)
[2021-12-17] MEDS ORDERED: CLOPIDOGREL 75 MG TABLET ONE (13:07)
[2021-12-17] MEDS ORDERED: ATROPINE SULF 1 MG/10 ML SYR IV ONE (13:08)
[2021-12-17] MEDS ORDERED: TICAGRELOR 90 MG TABLET PO ONE (13:08)
[2021-12-17] MEDS ORDERED: LIDOCAINE 1% MPF 5 ML VIAL ONE (13:10)
[2021-12-17] MEDS ORDERED: NA CHLORIDE 0.9% 500 ML ONE (13:22)
[2021-12-17 15:11] VITALS: O2SAT 100
--- NOTE | 2021-12-17 16:36 | P.DS ---
Admission Date: 12/16/21 Discharge Date: 12/17/21 Disposition: ROUTINE DISCHARGE Discharge Condition: GOOD Reason for Admission: Unstable angina Consultations: Cardiology - Dr. Johnston Brief History of Present Illness: 71-year-old female with history of CAD status post CABG 2019, hypertension, hyperlipidemia presents the emergency department for chest pain, shortness of breath. She reports symptoms over the course of the last 3 days some with exertion, some at rest she reports that today her pain began radiating to her left jaw and was associated with shortness of breath pain is described as tightness/pressure. Story concerning for unstable angina initial troponin is negative EKG is without acute changes ED prior wishes to admit for further evaluation and management of unstable angina. Hospital Course: Problem List Unstable anginahistory CAD S/P CABG Hypertension Hyperlipidemia Tobacco abuse Patient's chest pain was evaluated by EKG, troponins, and chest x-ray, which were negative for acute process. Cardiology was consulted and took patient for cardiac catheterization. Patient was noted to have patent coronary grafts with some stenosis but did not require stent placement at this time. Dr. Johnston recommended follow up in the office next week for further evaluation. She was deemed stable for discharge home. No change in medications at this time. Vital Signs/Physical Exam: Temp Pulse Resp BP Pulse Ox 97.5 F 49 L 16 123/69 93 12/17/21 12:00 12/17/21 15:54 12/17/21 15:54 12/17/21 15:54 12/17/21 08:00 General: Alert, In no apparent distress, Oriented x3 HEENT: EOMI, Sclerae nonicteric Neck: No LAD Respiratory: Clear to auscultation bilaterally, Normal air movement Cardiovascular: No edema, Regular rate/rhythm Gastrointestinal: Soft and benign, Non-distended, No tenderness Laboratory Data at Discharge: WBC 7.9 K/uL (4.3-10.9) D 12/17/21 04:27 Hgb 13.2 g/dL (12.0-15.0) 12/17/21 04:27 Hct 38.7 % (36.0-45.0) 12/17/21 04:27 Plt Count 215 K/uL (152-406) 12/17/21 04:27 PT 12.7 SECONDS (9.5-12.5) H 12/16/21 18:05 INR 1.15 12/16/21 18:05 Sodium 140 mmol/L (136-145) 12/17/21 04:27 Potassium 4.5 mmol/L (3.5-5.1) 12/17/21 04:27 BUN 19 mg/dL (7-18) H 12/17/21 04:27 Creatinine 1.07 mg/dL (0.55-1.3) 12/17/21 04:27 Glucose 105 mg/dL (74-106) 12/17/21 04:27 Magnesium 2.3 mg/dL (1.8-2.4) 12/16/21 18:05 Total Bilirubin 0.2 mg/dL (0.2-1.0) 12/17/21 04:27 AST 19 U/L (15-37) 12/17/21 04:27 ALT 19 U/L (12-78) 12/17/21 04:27 Alkaline Phosphatase 85 U/L (45-117) 12/17/21 04:27 Triglycerides 285 mg/dL (<150) H 12/17/21 04:27 Cholesterol 169 mg/dL (<200) 12/17/21 04:27 HDL Cholesterol 53 mg/dL (40-60) 12/17/21 04:27 Cholesterol/HDL Ratio 3.19 12/17/21 04:27 Home Medications: Calcium Carbonate/Vitamin D3 [Calcium 600 with Vit D Chew Tb] 1,200 mg PO DAILY 07/25/18 Fluoxetine HCl 20 mg PO DAILY 07/25/18 Amlodipine [Norvasc*] 10 mg PO DAILY 12/17/21 Aspirin [Aspirin EC] 81 mg PO DAILY 12/17/21 Rosuvastatin [Crestor*] 10 mg PO BEDTIME 12/17/21 Diet: AHA Followup: Emiliano Johnston MD [ACTIVE - CAN ADMIT] - (Follow up next week, call to schedule appointment.) Time spent managing pt's care (in minutes): 45
--- NOTE | 2021-12-17 17:00 | OP ---
Date of Procedure: 12/17/2021 Surgeon: AIMEE MOON Procedures Performed: 1.Selective coronary angiogram with bypass graft study. 2.Left subclavian angiogram. Indication: Unstable angina. Access: Right femoral artery 6-American closed with 6-American Angio-Seal. Complications: None. Bleeding: Less than 20 mL. Anesthesia: Total sedation time was 45 minutes, used fentanyl and Versed. Description Of Procedure: After risks, benefits, and alternatives were explained, the patient agreed to the procedure and signed informed consent. The patient was brought into the cardiac catheterizat ion laboratory, prepped and draped in the usual sterile fashion. Then, we gave fentanyl and Versed i ncremental doses to achieve adequate moderate sedation. Then, using ultrasound guidance fluoroscopy and micropuncture kit, I accessed the right femoral artery, placed 6-American [place] sheath and took a 6-American JL4 catheter into the aortic root, engaged left main, took standard views and then exchang ed for a 6-American JR4 catheter and engaged the RCA, SVG to RCA and NEVAREZ to LAD and did a subclavian a ngiogram and then removed the catheter and sheath was removed. A 6-American Angio-Seal was used with g ood hemostasis. Findings: 1.Left main; long with luminal irregularities. No significant stenosis. 2.LAD; mid PRODUCT MANAGEMENT SPECIALIST after the diagonal takeoff. Diagonal branch is large and widely patent. 3.Left circumflex; moderate-sized vessel with luminal irregularity. No significant stenosis. 4.RCA; patent to the mid section where it becomes PRODUCT MANAGEMENT SPECIALIST 100% occluded. Grafts: 1.Widely patent NEVAREZ to LAD. 2.Widely patent SVG to RCA. 3.Likely significant stenosis of the ostial left subclavian artery. I could not image it as injecti ng the contrast against the flow could not see the subclavian ostium; however, it was difficult to ca nnulate and the pressure on the aorta at that time was in the 125/65 range and the pressure in the hicks bclavian post after the ostium was 92/62 suggestive of significant gradient. Conclusion: 1.Severe LAD and RCA stenosis, both totally occluded in the mid segment with widely patent NEVAREZ to L AD and widely patent SVG to RCA. 2.Normal left circumflex. 3.Likely significant stenosis of the ostial left subclavian artery based on the pressure gradient di fference, but could not image it angiographically. Recommendations: Obtain CTA chest, which can be done as an outpatient and if confirms the significan t stenosis of the ostium of the left subclavian, we will bring her back and intervene via left radial artery access. SR/MODL Voice ID: [id number] Report ID: [id number]
[2021-12-17 17:22] VITALS: BP 119/55; TEMP 97.6
--- NOTE | 2021-12-18 07:27 | ECHO ---
HEIGHT: 5 ft 2 in WEIGHT: 135 lb 0 oz DATE OF STUDY: 12/17/[address]: Shamar Green MD 2-DIMENSIONAL: YES M.MODE: YES DOPPLER: YES COLOR FLOW: YES TDS: NO PORTABLE: YES DEFINITY: NO BUBBLE STUDY: NO DIAGNOSIS: ANGINA CARDIAC HISTORY: CATHERIZATION:YES SURGERY: YES PROSTHETIC VALVE: NO PACEMAKER: NO MEASUREMENTS (cm) DIASTOLIC (NORMALS) SYSTOLIC (NORMALS) IVSd 1.0 (0.6-1.2) LA Diam 2.7 (1.9-4.0) LVEF 53% LVIDd 4.3 (3.5-5.7) LVIDs 3.1 (2.0-3.5) %FS 27% LVPWd 1.1 (0.6-1.2) Ao Diam 2.7 (2.0-3.7) 2 DIMENSIONAL ASSESSMENT: RIGHT ATRIUM: NORMAL LEFT ATRIUM: NORMAL RIGHT VENTRICLE: NORMAL LEFT VENTRICLE: NORMAL TRICUSPID VALVE: NORMAL MITRAL VALVE: NORMAL PULMONIC VALVE: NORMAL AORTIC VALVE: SCLEROSIS PERICARDIAL EFFUSION: NONE AORTIC ROOT: NORMAL LEFT VENTRICULAR WALL MOTION: NORMAL DOPPLER/COLOR FLOW: MILD TRICUSPID REGURGITATION. NORMAL RIGHT VENTRICULAR SYSTOLIC PRESSURE. COMMENTS: AORTIC SCLEROSIS WITH NO STENOSIS. NORMAL LEFT VENTRICULAR SIZE AND FUNCTION. NO WALL MOTION ABNORMALITY. TECHNOLOGIST: Lynette ALVARADO
--- NOTE | 2021-12-18 09:45 | ER ---
Nurse's Notes [facility] Name: Anamika Diaz Age: 71 yrs Sex: Female : 1950 Arrival Date: 12/16/2021 Time: 16:04 Bed 20 Private MD: Diagnosis: Unstable angina Presentation: 12/16 16:27 Chief complaint: Patient states: pt reports chest pain shortness of breath x 3 days. tobin Coronavirus screen: Vaccine status: Patient reports receiving the 2nd dose of the covid vaccine. Ebola Screen: Patient denies travel to an Ebola-affected area in the 21 days before illness onset. Initial Sepsis Screen: Does the patient meet any 2 criteria? No. Patient's initial sepsis screen is negative. Does the patient have a suspected source of infection? No. Patient's initial sepsis screen is negative. Risk Assessment: Do you want to hurt yourself or someone else? Patient reports no desire to harm self or others. Onset of symptoms was December 13, 2021. 16:27 Method Of Arrival: Ambulatory tobin 16:27 Acuity: CARMEN 3 tobin Triage Assessment: 16:28 General: Appears in no apparent distress. Behavior is calm, cooperative. Pain: tobin Complains of pain in chest. Historical: - Allergies: 16:28 Codeine; tobin 16:28 Cyclobenzaprine (Vomiting); tobin 16:28 Levaquin; tobin 16:28 Levofloxacin (Vomiting); tobin 16:28 PENICILLINS (Hives); tobin - PMHx: 16:28 Hyperlipidemia; Hypertension; Vertigo; tobin - Immunization history:: Adult Immunizations up to date. - Social history:: Smoking status: Patient denies any tobacco usage or history of. Screenin:16 Abuse screen: Denies threats or abuse. Nutritional screening: No deficits noted. ll3 Tuberculosis screening: No symptoms or risk factors identified. Fall Risk No fall in past 12 months (0 pts). No secondary diagnosis (0 pts). IV access (20 points). Ambulatory Aid- None/Bed Rest/Nurse Assist (0 pts). Gait- Normal/Bed Rest/Wheelchair (0 pts) Mental Status- Oriented to own ability (0 pts). Total Wright Fall Scale indicates No Risk (0-24 pts). Assessment: 17:43 Reassessment: Patient and/or family updated on plan of care and expected duration. Pain bm7 level reassessed. Patient is alert, oriented x 3, equal unlabored respirations, skin warm/dry/pink. 19:06 Reassessment: Patient and/or family updated on plan of care and expected duration. Pain bm7 level reassessed. 19:51 Reassessment: No changes from previously documented assessment. Patient and/or family ll3 updated on plan of care and expected duration. Pain level reassessed. Patient is alert, oriented x 3, equal unlabored respirations, skin warm/dry/pink. 21:16 Reassessment: No changes from previously documented assessment. Patient and/or family ll3 updated on plan of care and expected duration. Pain level reassessed. Patient is alert, oriented x 3, equal unlabored respirations, skin warm/dry/pink. Vital Signs: 16:27 BP 123 / 63; Pulse 58; Resp 17; Temp 97.8(T); Pulse Ox 100% on R/A; Weight 61.23 kg; tobin Height 5 ft. 2 in. (157.48 cm); 18:23 BP 106 / 67; Pulse 56; Resp 16; Pulse Ox 100% on R/A; bm7 19:51 BP 126 / 91; Pulse 55; Resp 17; Pulse Ox 97% on R/A; ll3 21:16 BP 128 / 60; Pulse 60; Resp 18; Pulse Ox 100% on R/A; ll3 16:27 Body Mass Index 24.69 (61.23 kg, 157.48 cm) tobin ED Course: 16:04 Patient arrived in ED. ja2 16:09 Holden Diez PA is PHCP. cp 16:09 Tad Fontaine MD is Attending Physician. cp 16:28 Triage completed. tobin 17:43 Blanka Baumann, SHERRI is Primary Nurse. bm7 18:09 Inserted saline lock: 20 gauge in right antecubital area, using aseptic technique. kc6 Blood collected. 18:09 Basic Metabolic Panel Sent. kc6 18:09 CBC with Diff Sent. kc6 18:09 LFT's Sent. kc6 18:09 Magnesium Sent. kc6 18:09 NT PRO-BNP Sent. kc6 18:09 PT-INR Sent. kc6 18:10 Troponin HS Sent. kc6 19:16 Primary Nurse role handed off by BaumannBlanka becerra RN mw2 19:26 Sadiq Velazquez is Hospitalizing Provider. cp 19:27 Maximiliano Farias, SHERRI is Primary Nurse. ll3 19:29 XRAY Chest (1 view) In Process Unspecified. EDMS 21:16 No provider procedures requiring assistance completed. ll3 21:16 Arm band placed on. ll3 21:44 Patient admitted, IV remains in place. ll3 21:45 Patient has correct armband on for positive identification. Bed in low position. Call ll3 light in reach. Side rails up X 1. Adult w/ patient. Administered Medications: 18:22 Drug: Ativan (LORazepam) 0.5 mg Route: IVP; Site: right antecubital; bm7 18:34 Follow up: Response: No adverse reaction bm7 18:23 Drug: Aspirin Chewable Tablet 324 mg Route: PO; bm7 18:34 Follow up: Response: No adverse reaction bm7 19:25 CANCELLED (Physician Discretion): fentaNYL (PF) 25 mcg IVP once cp 19:32 Not Given (Patient Refused): morphine 2 mg IVP once over 4 mins ll3 21:15 Drug: Lovenox (enoxaparin) 1 mg/kg Route: Sub-Q; Site: abdomen; ll3 22:30 Follow up: Response: No adverse reaction ll3 22:15 Drug: Atorvastatin 20 mg Route: PO; ll3 22:30 Follow up: Response: No adverse reaction ll3 22:30 Not Given (BP 108/77g): amLODIPine 10 mg PO once ll3 Medication: 21:16 VIS not applicable for this client. ll3 Outcome: 19:27 Decision to Hospitalize by Provider. cp 21:44 Admitted to ICU accompanied by nurse, via wheelchair, room 1, with chart, Report called ll3 to SHERRI Shaver 21:44 Condition: stable 21:44 Instructed on the need for admit, Demonstrated understanding of instructions. 22:17 Patient left the ED. mw2 Signatures: Dispatcher [employer] EDMS Holden Diez PA PA cp Marcy Lopez mw2 Blanka Baumann RN RN bm7 Lorelei Ugalde [facility] Maximiliano Farias RN RN 3 Caitlyn-Stager, Alice, RN RN tobin Porras, Josephine kc6
--- NOTE | 2021-12-18 09:45 | EDPHYS ---
Physician Documentation [facility] Name: Anamika Diaz Age: 71 yrs Sex: Female : 1950 Arrival Date: 12/16/2021 Time: 16:04 Bed 20 Private MD: ED Physician Tad Fontaine HPI: 12/16 18:00 This 71 yrs old Female presents to ER via Ambulatory with complaints of Jaw Injury, cp Shortness Of Breath, Chest Tightness. Historical: - Allergies: 16:28 Codeine; tobin 16:28 Cyclobenzaprine (Vomiting); tobin 16:28 Levaquin; tobin 16:28 Levofloxacin (Vomiting); tobin 16:28 PENICILLINS (Hives); tobin - PMHx: 16:28 Hyperlipidemia; Hypertension; Vertigo; tobin - Immunization history:: Adult Immunizations up to date. - Social history:: Smoking status: Patient denies any tobacco usage or history of. ROS: 18:05 Constitutional: Negative for body aches, chills, fever, poor PO intake. cp 18:05 Eyes: Negative for injury, pain, redness, and discharge. cp 18:05 ENT: Negative for drainage from ear(s), ear pain, sore throat, difficulty swallowing, difficulty handling secretions. 18:05 Cardiovascular: Positive for chest pain, Negative for edema, palpitations. 18:05 Respiratory: Positive for shortness of breath, at rest. Negative for cough, wheezing. 18:05 Abdomen/GI: Negative for abdominal pain, nausea, vomiting, and diarrhea. 18:05 Back: Negative for radiated pain. 18:05 Neuro: Negative for altered mental status. 18:05 All other systems are negative. cp Exam: 18:10 Constitutional: The patient appears in no acute distress, alert, awake, cp non-diaphoretic, non-toxic, well developed, well nourished, anxious. 18:10 Head/Face: Normocephalic, atraumatic. cp 18:10 Eyes: Periorbital structures: appear normal, Conjunctiva: normal, no exudate, no injection, Sclera: no appreciated abnormality, Lids and lashes: appear normal, bilaterally. 18:10 ENT: External ear(s): are unremarkable, Nose: is normal, Mouth: Lips: moist, Oral mucosa: moist, Posterior pharynx: Airway: no evidence of obstruction, patent. 18:10 Neck: ROM/movement: is normal, is supple, without pain, no range of motions limitations. 18:10 Chest/axilla: Inspection: normal. 18:10 Cardiovascular: Rate: bradycardic, Rhythm: regular, Edema: is not appreciated, JVD: is not appreciated. 18:10 Respiratory: the patient does not display signs of respiratory distress, Respirations: normal, no use of accessory muscles, no retractions, labored breathing, is not present, Breath sounds: are clear throughout, no decreased breath sounds, no stridor, no wheezing. 18:10 Abdomen/GI: Inspection: abdomen appears normal, Palpation: abdomen is soft and non-tender, in all quadrants. 18:10 Back: pain, is absent, ROM is normal. 18:10 Skin: cellulitis, is not appreciated, no rash present. 18:10 Neuro: Orientation: to person, place \T\ time. Mentation: is normal, Motor: moves all fours, strength is normal, Sensation: is normal. 18:20 ECG was reviewed by the Attending Physician. cp Vital Signs: 16:27 BP 123 / 63; Pulse 58; Resp 17; Temp 97.8(T); Pulse Ox 100% on R/A; Weight 61.23 kg; tobin Height 5 ft. 2 in. (157.48 cm); 18:23 BP 106 / 67; Pulse 56; Resp 16; Pulse Ox 100% on R/A; bm7 19:51 BP 126 / 91; Pulse 55; Resp 17; Pulse Ox 97% on R/A; ll3 21:16 BP 128 / 60; Pulse 60; Resp 18; Pulse Ox 100% on R/A; ll3 16:27 Body Mass Index 24.69 (61.23 kg, 157.48 cm) tobin MDM: 17:48 Patient medically screened. cp 18:50 Data reviewed: vital signs, nurses notes, lab test result(s), EKG, radiologic studies, cp plain films, I have discussed the patient's presentation/case with the attending Emergency Department Physician; and as a result, I will admit patient. 18:50 Test interpretation: by ED physician or midlevel provider: ECG, plain radiologic cp studies. 18:55 Counseling: I had a detailed discussion with the patient and/or guardian regarding: the cp historical points, exam findings, and any diagnostic results supporting the discharge/admit diagnosis, lab results, radiology results, the need for further work-up and treatment in the hospital. 19:00 Physician consultation: Carlos Caicedo was called at 18:50, was contacted at 18:50, cp regarding admission, to the telemetry unit. patient's condition. 12/16 17:56 Order name: Basic Metabolic Panel; Complete Time: 18:43 cp 12/16 18:43 Interpretation: Normal except: BUN 22; GFR 51. cp 12/16 17:56 Order name: CBC with Diff; Complete Time: 18:43 cp 12/16 17:56 Order name: LFT's; Complete Time: 18:43 cp 12/16 17:56 Order name: Magnesium; Complete Time: 18:43 cp 12/16 17:56 Order name: NT PRO-BNP; Complete Time: 18:43 cp 12/16 18:43 Interpretation: NT PRO-BNP 265; Reviewed. cp 12/16 17:56 Order name: PT-INR; Complete Time: 18:43 cp 12/16 17:56 Order name: Troponin HS; Complete Time: 18:43 cp 12/16 18:44 Interpretation: Reviewed. cp 12/16 17:56 Order name: XRAY Chest (1 view); Complete Time: 19:51 cp 12/16 19:52 Interpretation: Report review. cp 12/16 18:47 Order name: SARS RAPID; Complete Time: 19:26 cp 12/16 19:26 Interpretation: Reviewed. 12/16 17:56 Order name: EKG; Complete Time: 17:57 cp 12/16 17:56 Order name: Cardiac monitoring; Complete Time: 18:20 cp 12/16 17:56 Order name: EKG - Nurse/Tech; Complete Time: 17:59 cp 12/16 17:56 Order name: IV Saline Lock; Complete Time: 18:09 cp 12/16 17:56 Order name: Labs collected and sent; Complete Time: 18:09 cp 12/16 17:56 Order name: O2 Per Protocol; Complete Time: 18:34 cp 12/16 17:56 Order name: O2 Sat Monitoring; Complete Time: 18:20 cp EC:20 Rate is 51 beats/min. Rhythm is regular. MS interval is normal. QRS interval is normal. cp QT interval is normal. T waves are Inverted in lead aVR. Interpreted by me. Reviewed by me. Administered Medications: 18:22 Drug: Ativan (LORazepam) 0.5 mg Route: IVP; Site: right antecubital; bm7 18:34 Follow up: Response: No adverse reaction bm7 18:23 Drug: Aspirin Chewable Tablet 324 mg Route: PO; bm7 18:34 Follow up: Response: No adverse reaction bm7 19:25 CANCELLED (Physician Discretion): fentaNYL (PF) 25 mcg IVP once cp 19:32 Not Given (Patient Refused): morphine 2 mg IVP once over 4 mins ll3 21:15 Drug: Lovenox (enoxaparin) 1 mg/kg Route: Sub-Q; Site: abdomen; ll3 22:30 Follow up: Response: No adverse reaction ll3 22:15 Drug: Atorvastatin 20 mg Route: PO; ll3 22:30 Follow up: Response: No adverse reaction ll3 22:30 Not Given (BP 108/77g): amLODIPine 10 mg PO once ll3 Disposition: 12/17 19:48 Co-signature as Attending Physician, Tad Fontaine MD I agree with the assessment and rn plan of care. Attestation: The patient's history, exam findings, diagnostics, and a summary of any interventions or procedures was reviewed in detail with Holden IBARRA. Disposition Summary: 12/16/21 19:27 Hospitalization Ordered Hospitalization Status: Observation cp Provider: Sadiq Velazquez cp Condition: Stable cp Problem: new cp Symptoms: have improved cp Bed/Room Type: Standard cp Location: Intensive Care Unit(12/16/21 20:31) Room Assignment: 1-(12/16/21 20:31) Diagnosis - Unstable angina cp Forms: - Medication Reconciliation Form cp - SBAR form cp Signatures: Dispatcher [employer] EDMS Noy Marti RN RN mw Nieto, Roman, MD MD rn Attema, Lee, ZOYA-Rafaela JOHNSONP-Cla1 Holden Diez PA PA cp Blanka Baumann, RN RN bm7 Maximiliano Farias RN RN ll3 Alice Vanegas RN SHERRI tobin Corrections: (The following items were deleted from the chart) 12/16 19:25 19:25 fentaNYL (PF) 25 mcg IVP once ordered. cp 19:27 Telemetry/MedSurg (observation) cp : [facility]
--- NOTE | 2021-12-20 00:51 | CON ---
Date of Consultation: 12/17/2021 Reason For Consultation: Unstable angina. History Of Present Illness: Ms. Diaz is a 71-year-old woman who has a history of tobacco abuse, hyper tension, hyperlipidemia, GERD, dyslipidemia, vertigo, coronary artery disease status post CABG in , who came into the Emergency Department with chest pain and shortness of breath. Chest pain was ra diating to the back. The symptoms have occurred with exertion. She has had some nausea, diaphoresis , and shortness of breath. The pain occasionally radiates to the left jaw. Troponin is negative. E KG was negative. Denied any PND, orthopnea, pedal edema, palpitations, or syncope. Denied any fever or chills. Past Medical History: As stated above. Allergies: SHE IS ALLERGIC TO CODEINE, LEVAQUIN, AND PENICILLIN. Medications: Include Lipitor, calcium, and lisinopril. Review of Systems: Negative. Social History: Positive for tobacco. Family History: Positive for heart disease. Physical Examination: Vital Signs: Stable, afebrile. HEENT: Negative. Neck: Supple. No bruit. Chest: Clear to auscultation and percussion. Cardiac: Regular rhythm and rate. No murmurs, gallops, or rubs. Abdomen: Benign. Extremities: No clubbing, cyanosis, or edema. Diagnostic Data: Normal troponin. Her triglycerides were 285. BNP was 265. Chest x-ray was negati ve. EKG was unremarkable. She had sinus bradycardia with some nonspecific changes. Impression And Plan: The patient with hypertension, diabetes, dyslipidemia, tobacco abuse, symptoms consistent with unstable angina, status post coronary artery bypass graft in 2019. I recommend we do a left heart catheterization to define her coronary anatomy. Continue her present regimen. The pat ient understands the risk and the benefits of the procedure and she agrees to proceed. The catheteri zation will be done on 12/17/[address] Johnston. We will see what we find before making further deci dany regarding her discharge. FLOYD/AIDA Voice ID: [id number] Report ID: [id number]
== END 2021-12-17 17:31 | disposition home or self-care (01) | DRG 287 ==
LOC: ER 16:01 → ERHOLD 20:53 → 3RD-ICU 21:05 → 2ND 12-17 13:00
PROVIDERS: ADMIT Hospitalist; ATTEND Hospitalist
PROC: B203YZZ Plain Radiography of Multiple Coronary Artery Bypass Grafts using Other Contrast (ICD-10-PCS; principal; 2021-12-16)
PROC: B201YZZ Plain Radiography of Multiple Coronary Arteries using Other Contrast (ICD-10-PCS; 2021-12-16)
PROC: B30 Imaging, Upper Arteries, Plain Radiography (ICD-10-PCS; 2021-12-16)
DX: I25.110 Atherosclerotic heart disease of native coronary artery with unstable angina pectoris (principal); I25.82 Chronic total occlusion of coronary artery; I70.8 Atherosclerosis of other arteries; I10 Essential (primary) hypertension; E78.5 Hyperlipidemia, unspecified; R00.1 Bradycardia, unspecified; R42 Dizziness and giddiness; K21.9 Gastro-esophageal reflux disease without esophagitis; E11.9 Type 2 diabetes mellitus without complications; Z72.0 Tobacco use; Z71.6 Tobacco abuse counseling; Z20.822 Contact with and (suspected) exposure to COVID-19; Z95.1 Presence of aortocoronary bypass graft; Z88.0 Allergy status to penicillin; Z88.3 Allergy status to other anti-infective agents; Z88.5 Allergy status to narcotic agent; Z88.8 Allergy status to other drugs, medicaments and biological substances; Z79.899 Other long term (current) drug therapy; Z82.49 Family history of ischemic heart disease and other diseases of the circulatory system
CPT/HCPCS: 36415; 71045; 80048; 80053; 80061; 80076; 83735; 83880; 84484; 85025; 85610; 87811; 93005; 93306; 93455; 96372; 96374; 99285; C1760; C1893; G0269; J1644; J1650; J2250; J2270; J3010; J7040; Q9967